=== PATIENT | female | born 1960 | race Caucasian/White ===

== ENCOUNTER → 2017-09-02 | Outpatient (CLI) | payer MEDICARE, OTHER ==
[~2017-09-02] MED LIST: ALBU0.63 NEB; ALBU18HF IH; ARFO15VI IH; AZAT100T PO; AZAT50TA PO; AZAT50TA20 PO; BUDE0.5A11 IH; BUDE10.2 IH; FLUT1DIS5 IH; HYDR-2762 PO; TIOT18CA IH
== END | disposition home or self-care (01) ==
LOC: SURG 14:12
PROVIDERS: ATTEND Anesthesiology
DX: M51.36 Other intervertebral disc degeneration, lumbar region (principal); M47.816 Spondylosis without myelopathy or radiculopathy, lumbar region; M79.1 Myalgia; J44.9 Chronic obstructive pulmonary disease, unspecified; F17.200 Nicotine dependence, unspecified, uncomplicated; Z72.89 Other problems related to lifestyle
CPT/HCPCS: 99204

== ENCOUNTER 2018-04-10 01:25 | Inpatient (IN) | payer MEDICARE, OTHER ==
[2018-04-10] VITALS (11 sets, daily range): BP systolic 91–160; BP diastolic 51–82
[~2018-04-10] VITALS: Ht 165.1 cm; Wt 81.2 kg
[2018-04-10] MEDS ORDERED: ALBU8.5H8 INH (02:46)
[2018-04-10] MEDS ORDERED: AZAT50TA20 PO (02:46)
[2018-04-10] MEDS ORDERED: HYDR-2762 PO (02:46)
[2018-04-10] MEDS ORDERED: TIOT18CA IH (02:46)
[2018-04-10] MEDS ORDERED: NAPR-514 PO (02:46)
[2018-04-10] MEDS ORDERED: IPRA3AMP NEB (02:46)
[2018-04-10] MEDS ORDERED: ROFL500T7 PO (02:46)
[2018-04-10] MEDS ORDERED: PRED2.5T PO (02:46)
[2018-04-10] MEDS ORDERED: AZIT250T PO (02:46)
[2018-04-10] MEDS ORDERED: BUDE10.2 IH (02:46)
[2018-04-10] MEDS ORDERED: IPRATRPIUM/ALBUTEROL 0.5/2.5MG 3 ML NEBU. ONE (05:12)
[2018-04-10] MEDS ORDERED: HYDROcodone/APAP 7.5/325MG 1 TAB TABLET PO PRN (06:00)
[2018-04-10] MEDS ORDERED: PIP/TAZO PER PHARMACY MC PRN (06:15)
[2018-04-10] MEDS ORDERED: PIPERACILLIN/TAZOBACTAM 3.375 GM in IV NORMAL SALINE 50ML 50 ML IV ONE (06:30)
[2018-04-10] MEDS: methylPREDNISolone SOD SUCC PF 40 MG/ML VIAL. IV SCH ×3 (06:32→20:11)
[2018-04-10 06:53] LABS: ALBUMIN 2.6 g/dL (3.4-5.0); ALBUMIN/GLOBULIN RATIO 0.6 (1.0-1.7); CALCIUM 7.8 mg/dL (8.5-10.1); CREATININE 0.9 mg/dL (0.6-1.0); GFR 64.8; POTASSIUM 4.3 mmol/L (3.5-5.1); TOTAL BILIRUBIN 0.3 mg/dL (0.2-1.0)
[2018-04-10] MEDS ORDERED: VANCOMYCIN 1 GM in IV NORMAL SALINE 250ML 250 ML IV ONE (07:30)
[2018-04-10] MEDS ORDERED: IPRATRPIUM/ALBUTEROL 0.5/2.5MG 3 ML NEBU. NEB SCH ×3 (08:00→09:00)
[2018-04-10] MEDS: IPRATRPIUM/ALBUTEROL 0.5/2.5MG 3 ML NEBU. NEB SCH ×4 (08:00→20:35)
[2018-04-10 08:26] LABS: BASO % 0 % (0-3); EOS % 0 % (0-3); HEMATOCRIT 30.9 % (36.0-47.0); HEMOGLOBIN 9.5 g/dL (12.0-15.5); LYMPH # 0.5 x10^3/uL (1.0-4.8); LYMPH % 4 % (24-48); MEAN CORPUSCULAR HEMOGLOBIN 23 pg (25-35); MEAN CORPUSCULAR HGB CONC 31 g/dL (31-37); MEAN CORPUSCULAR VOLUME 75 fL (79-100); MONO # 0.3 x10^3/uL (0.0-1.1); MONO % 2 % (0-9); NEUT # 10.9 x10^3uL (1.8-7.7); NEUT % 94 % (31-73); PLATELET COUNT 425 x10^3/uL (140-400); RED CELL DISTRIBUTION WIDTH 15.2 % (11.5-14.5); WHITE BLOOD COUNT 11.7 x10^3/uL (4.0-11.0)
--- NOTE | 2018-04-10 08:29 | RAD ---
CHEST PA LATERAL History: SHORT OF AIR, PNEUMONIA Comparison: None. Findings: 2 views of the chest are submitted. There is left suprahilar opacity. There is no significant pleural fluid or pneumothorax. Heart size is considered within normal limits. Impression: 1. There is left suprahilar opacity, could be due to infiltrate although mass not excluded at this point in time. Short-term follow-up after treatment or CT evaluation is recommended. Electronically signed by: Mannie Moore MD (04/10/2018 8:25 AM) [id number]
[2018-04-10] MEDS ORDERED: NON FORMULARY ITEM (Tiotropium Bromide (Spiriva) 1 CAP) IH SCH (09:00)
[2018-04-10] MEDS ORDERED: NON FORMULARY ITEM (Budesonide/Formoterol Fumarate (Symbicort 160-4.5 Mcg Inhaler) 2 PUFF) IH SCH (09:00)
[2018-04-10] MEDS ORDERED: ALBUTEROL SULFATE 8GM INHALER. INH SCH (09:00)
[2018-04-10] MEDS: ROFLUMILAST 500 MCG TABLET PO SCH (10:14)
[2018-04-10] MEDS: azaTHIOprine 50 MG TABLET PO SCH ×2 (10:15→20:12)
[2018-04-10] MEDS: VANCOMYCIN PER PHARMACY MC PRN (10:38)
--- NOTE | 2018-04-10 11:32 | EKG ---
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
[2018-04-10] MEDS: BUDESONIDE 0.5 MG/2 ML NEBU NEB SCH ×2 (11:33→20:35)
[2018-04-10] MEDS: VANCOMYCIN 1.25 GM in IV NORMAL SALINE 250ML 250 ML IV SCH (13:00)
[2018-04-10] MEDS: PIPERACILLIN/TAZOBACTAM 4.5 GM in IV NORMAL SALINE 50ML 50 ML IV SCH ×2 (13:00→17:40)
[2018-04-10] MEDS ORDERED: AZITHROMYCIN 250 MG TABLET. PO SCH (16:00)
[2018-04-10] MEDS: LACTOBACILLUS RHAMNOSUS GG 1 CAPSULE. PO SCH (20:11)
--- NOTE | 2018-04-10 22:53 | HP ---
ADMIT DATE: 04/10/2018 HISTORY OF PRESENT ILLNESS: The patient is a 57-year-old Afro-Uzbek female initially seen over at [place]. She had been a patient there and was discharged. She came back in through the Emergency Room with increased shortness of breath. Apparently, she had an exacerbation of COPD and has another result of that, the patient was to be admitted; however, apparently they were short of beds, and on diversion, so the patient requested to be transferred to [facility] for admission. She was diagnosed in the ER there. The patient had a probable hospital-acquired pneumonia and as a result of that was placed on vancomycin and Zosyn. The patient was increased shortness of breath, had been doing well up until the day prior to admission when she began to get increased shortness of breath there. The patient's chest x-ray there demonstrated a suprahilar opacity, possible infiltrate or mass noted. The patient was admitted also for exacerbation of COPD. PAST MEDICAL HISTORY: Sarcoid diagnosed at , lump in the left breast, bronchiectasis, asthma, COPD, emphysema, colonic polyps, influenza and pneumococcal vaccines are up-to-date. ALLERGIES: No known allergies listed. PAST SURGICAL HISTORY: She has had repeated hospitalizations for pneumonia and bronchiectasis, been followed by Pulmonology down at [place], Dr. Benavidez. FAMILY HISTORY: Both mother and father of unknown cause. SOCIAL HISTORY: The patient is a former smoker, quit about 10 years ago. Denies chewing tobacco. Occasional beer, otherwise unremarkable there. MEDICATIONS: She is on continuous oxygen 4 liters, budesonide suspension, albuterol solution for nebulizer, azathioprine 100 mg tablet b.i.d., ferrous sulfate, Spiriva, Ventolin, naproxen 500, Symbicort 160, hydrocodone 5/325 p.r.n., and Zithromax. REVIEW OF SYSTEMS: The patient ____ weakness, failure to thrive as well as increased shortness of breath overall. The patient denies chest pain, abdominal pain, nausea, vomiting, melena, hematochezia, hematemesis. PHYSICAL EXAMINATION: GENERAL: The patient otherwise on exam is a pleasant Afro-Uzbek female, moderate amount of distress. VITAL SIGNS: Blood pressure did drop down to 91/59, pulse 102, upwards of 120, afebrile, respiratory rate 26, O2 2 liters. The patient otherwise is on continuous oxygen. HEENT: The patient's head was atraumatic, normocephalic. Eyes: PERRLA without jaundice. Mouth and throat were normal. NECK: Supple. LUNGS: Diminished throughout, poor movement of air. CARDIOVASCULAR: Regular sinus rhythm, tachycardic at times. ABDOMEN: Soft, nontender. EXTREMITIES: No clubbing, 0cyanosis or edema. NEUROLOGIC: Intact. IMPRESSION: The patient was admitted for further evaluation of pneumonia, possibly hospital-acquired at another institution and acute exacerbation of chronic obstructive pulmonary disease, fkxmzekg-ig-ljgjjl protein malnutrition, history of sarcoid bronchiectasis and the like. The patient will be admitted and placed on steroids, IV antibiotic therapy, and make further evaluation on her as indicated. GABE PEARCE MD DR: ZORAN/garland JOB#: [id number] / [id number]
[2018-04-11] MEDS: PIPERACILLIN/TAZOBACTAM 4.5 GM in IV NORMAL SALINE 50ML 50 ML IV SCH ×5 (01:06→22:53)
[2018-04-11] MEDS: VANCOMYCIN 1.25 GM in IV NORMAL SALINE 250ML 250 ML IV SCH ×2 (01:08→13:01)
[2018-04-11] MEDS ORDERED: ONDANSETRON PF 4 MG/2 ML VIAL. IV PRN (03:00)
[2018-04-11 03:15] VITALS: BP 108/62
[2018-04-11] MEDS ORDERED: ONDANSETRON ODT 4 MG TAB.RAPDIS ONE (03:15)
[2018-04-11] MEDS ORDERED: ONDANSETRON ODT 4 MG TAB.RAPDIS PO PRN (03:31)
[2018-04-11] MEDS: IPRATRPIUM/ALBUTEROL 0.5/2.5MG 3 ML NEBU. NEB SCH ×4 (05:30→20:58)
[2018-04-11 05:45] LABS: BASO % 0 % (0-3); CALCIUM 8.1 mg/dL (8.5-10.1); CREATININE 0.9 mg/dL (0.6-1.0); EOS % 0 % (0-3); GFR 64.8; HEMATOCRIT 29.9 % (36.0-47.0); HEMOGLOBIN 9.1 g/dL (12.0-15.5); LYMPH # 0.5 x10^3/uL (1.0-4.8); LYMPH % 3 % (24-48); MEAN CORPUSCULAR HEMOGLOBIN 23 pg (25-35); MEAN CORPUSCULAR HGB CONC 31 g/dL (31-37); MEAN CORPUSCULAR VOLUME 77 fL (79-100); MONO # 1.3 x10^3/uL (0.0-1.1); MONO % 9 % (0-9); NEUT # 13.5 x10^3uL (1.8-7.7); NEUT % 88 % (31-73); PLATELET COUNT 472 x10^3/uL (140-400); POTASSIUM 4.1 mmol/L (3.5-5.1); RED CELL DISTRIBUTION WIDTH 15.5 % (11.5-14.5); WHITE BLOOD COUNT 15.4 x10^3/uL (4.0-11.0)
[2018-04-11] MEDS: methylPREDNISolone SOD SUCC PF 40 MG/ML VIAL. IV SCH ×3 (06:21→21:00)
[2018-04-11 07:17] LABS: % BANDS 4 % (0-9); % BASOS 0 % (0-3); % EOS 0 % (0-5); % LYMPHS 3 % (24-48); % MONOS 5 % (0-10); % SEGS 88 % (35-66); PLT ESTIMATE ADEQUATE (ADEQUATE)
[2018-04-11 07:18] LABS: ANISOCYTOSIS PRESENT; HYPOCHROMIA MOD
[2018-04-11] MEDS: azaTHIOprine 50 MG TABLET PO SCH ×2 (09:03→20:58)
[2018-04-11] MEDS: ROFLUMILAST 500 MCG TABLET PO SCH (09:03)
[2018-04-11] MEDS: LACTOBACILLUS RHAMNOSUS GG 1 CAPSULE. PO SCH ×2 (09:03→20:56)
[2018-04-11 11:11] VITALS: BP 105/55
[2018-04-11 11:53] LABS: VANC TR 14.4 mcg/mL (10.0-20.0)
[2018-04-11] MEDS: VANCOMYCIN PER PHARMACY MC PRN (13:15)
[2018-04-11 15:34] VITALS: BP 118/60
[2018-04-11] MEDS: BUDESONIDE 0.5 MG/2 ML NEBU NEB SCH ×2 (20:00→20:58)
[2018-04-11 20:29] VITALS: BP 141/58
[2018-04-11 23:00] VITALS: BP 112/63
[2018-04-12] MEDS: VANCOMYCIN 1.25 GM in IV NORMAL SALINE 250ML 250 ML IV SCH (00:03)
[2018-04-12 03:32] VITALS: BP 118/62
[2018-04-12] MEDS: IPRATRPIUM/ALBUTEROL 0.5/2.5MG 3 ML NEBU. NEB SCH ×4 (05:34→20:37)
[2018-04-12] MEDS: PIPERACILLIN/TAZOBACTAM 4.5 GM in IV NORMAL SALINE 50ML 50 ML IV SCH ×2 (06:00→11:51)
[2018-04-12] MEDS: methylPREDNISolone SOD SUCC PF 40 MG/ML VIAL. IV SCH (06:13)
[2018-04-12 07:00] VITALS: BP 118/62
[2018-04-12 07:49] LABS: BASO % 0 % (0-3); EOS % 0 % (0-3); HEMATOCRIT 29.9 % (36.0-47.0); HEMOGLOBIN 9.2 g/dL (12.0-15.5); LYMPH # 0.6 x10^3/uL (1.0-4.8); LYMPH % 4 % (24-48); MEAN CORPUSCULAR HEMOGLOBIN 24 pg (25-35); MEAN CORPUSCULAR HGB CONC 31 g/dL (31-37); MEAN CORPUSCULAR VOLUME 77 fL (79-100); MONO % 7 % (0-9); NEUT # 12.1 x10^3uL (1.8-7.7); NEUT % 88 % (31-73); PLATELET COUNT 504 x10^3/uL (140-400); RED BLOOD COUNT 3.88 x10^6/uL (3.50-5.40); RED CELL DISTRIBUTION WIDTH 15.3 % (11.5-14.5); WHITE BLOOD COUNT 13.8 x10^3/uL (4.0-11.0)
[2018-04-12 07:59] LABS: ALBUMIN 2.7 g/dL (3.4-5.0); ALBUMIN/GLOBULIN RATIO 0.7 (1.0-1.7); CALCIUM 7.9 mg/dL (8.5-10.1); CREATININE 0.8 mg/dL (0.6-1.0); GFR 74.2; POTASSIUM 3.8 mmol/L (3.5-5.1); TOTAL BILIRUBIN 0.3 mg/dL (0.2-1.0); TOTAL PROTEIN 6.8 g/dL (6.4-8.2)
[2018-04-12] MEDS: azaTHIOprine 50 MG TABLET PO SCH ×2 (09:55→20:48)
[2018-04-12] MEDS: LACTOBACILLUS RHAMNOSUS GG 1 CAPSULE. PO SCH ×2 (09:55→20:46)
[2018-04-12] MEDS: ROFLUMILAST 500 MCG TABLET PO SCH (09:56)
[2018-04-12] MEDS: BUDESONIDE 0.5 MG/2 ML NEBU NEB SCH ×2 (10:43→20:37)
[2018-04-12 12:20] VITALS: BP 123/77
[2018-04-12] MEDS ORDERED: levoFLOXacin 500 MG TABLET PO ONE (14:00)
[2018-04-12] MEDS ORDERED: predniSONE 10 MG TABLET PO ONE (14:00)
[2018-04-12] MEDS ORDERED: MAG HYDROX/AL HYDROX/SIMETH 30 ML ORAL.SUSP PO PRN (14:45)
[2018-04-12 19:37] VITALS: BP 138/78
[2018-04-12] MEDS: LINEZOLID 600 MG TABLET PO SCH (20:46)
[2018-04-12] MEDS ORDERED: FLUCONAZOLE 100 MG TABLET. PO SCH (21:00)
[2018-04-13 01:19] VITALS: BP 112/61
--- NOTE | 2018-04-13 05:04 | PN ---
DATE: 04/12/2018 SUBJECTIVE: A 57-year-old female in with pneumonia as well as exacerbation of COPD and sarcoid. She is resting fairly comfortably. They were unable to start and I restarted an IV. We had to switch over to oral medications, but to see whether or not she continues to do as well on the orals as she did on the IV. OBJECTIVE: VITAL SIGNS: Blood pressure 123/77, respiratory rate 24, pulse 87, afebrile. GENERAL: The patient is alert and oriented. LUNGS: Diminished, coarse breath sounds. CARDIOVASCULAR: Regular sinus rhythm. ABDOMEN: Soft, nontender. IMPRESSION: Pneumonia with exacerbation of chronic obstructive pulmonary disease, sarcoid, pulmonary nodules, pneumonia may be hospital-acquired from another facility, moaoaajj-pa-eslprl protein malnutrition. Continue on oral antibiotics and continue to monitor progress with this patient. GABE PEARCE MD DR: ZORAN/garland JOB#: [id number] / [id number]
[2018-04-13] MEDS: IPRATRPIUM/ALBUTEROL 0.5/2.5MG 3 ML NEBU. NEB SCH ×2 (05:19→10:39)
[2018-04-13] MEDS: LACTOBACILLUS RHAMNOSUS GG 1 CAPSULE. PO SCH (08:44)
[2018-04-13] MEDS: azaTHIOprine 50 MG TABLET PO SCH (08:45)
[2018-04-13] MEDS: ROFLUMILAST 500 MCG TABLET PO SCH (08:45)
[2018-04-13] MEDS: LINEZOLID 600 MG TABLET PO SCH (08:45)
--- NOTE | 2018-04-13 09:05 | RAD ---
Chest, 2 views, 04/13/2018: HISTORY: Pneumonia Comparison is made to a study from 04/10/2018. The heart size is normal. There are patchy bilateral suprahilar and apical opacities with superior retraction both marci. There is mild pleural thickening over the apices. The lateral view suggests rounded air-containing components compatible with cavitation or bronchiectasis. Much of this process may be due to pleural/parenchymal scarring. There is mild tenting of both hemidiaphragms. No new pulmonary abnormality is seen. There is no evidence of pleural fluid. IMPRESSION: Moderate unchanged bilateral upper lobe pleural-parenchymal opacities compatible with scarring and probable bronchiectasis, although a component of active pneumonitis is also a possibility. Comparison with older chest radiographs if available would be most helpful. Electronically signed by: Prabhjot Renee MD (04/13/2018 9:00 AM) [facility] [place]
[2018-04-13] MEDS ORDERED: MICONAZOLE NITRATE 2% TOPICAL CREAM 28GM TUBE. TP SCH ×2 (09:45→21:00)
[2018-04-13] MEDS ORDERED: MICO14CR TP (10:22)
[2018-04-13] MEDS ORDERED: LINE600T7 PO (10:22)
[2018-04-13] MEDS: BUDESONIDE 0.5 MG/2 ML NEBU NEB SCH (10:39)
== END 2018-04-13 12:25 | disposition home or self-care (01) | DRG 871 ==
LOC: ICU 02:10 → 1 SOUTH 04-12 04:12
PROVIDERS: ADMIT Family Medicine; ATTEND Family Medicine
DX: A41.9 Sepsis, unspecified organism (principal); J18.9 Pneumonia, unspecified organism; E43 Unspecified severe protein-calorie malnutrition; J44.0 Chronic obstructive pulmonary disease with (acute) lower respiratory infection; J44.1 Chronic obstructive pulmonary disease with (acute) exacerbation; D86.9 Sarcoidosis, unspecified; Z68.29 Body mass index [BMI] 29.0-29.9, adult; Z86.010 Personal history of colon polyps; Z87.891 Personal history of nicotine dependence
CPT/HCPCS: 36415; 71046; 80048; 80053; 80202; 83605; 85007; 85025; 85379; 87641; 93005; 94640; J0456; J2543; J2920; J3370; J7050; J7500; J7512; J7620; J7626; Q0162

== ENCOUNTER 2018-04-23 12:28 | Inpatient (IN) | payer MEDICARE, OTHER ==
[~2018-04-23] VITALS: Ht 162.6 cm; Wt 77.3 kg
[~2018-04-23 12:28] MED LIST changes: +ALBU8.5H8 INH; +AZIT250T PO; +IPRA3AMP NEB; +LINE600T7 PO; +MICO14CR TP; +NAPR-514 PO; +PRED2.5T PO; +ROFL500T7 PO
[2018-04-23] MEDS ORDERED: IPRATRPIUM/ALBUTEROL 0.5/2.5MG 3 ML NEBU. ONE (12:43)
[2018-04-23] MEDS ORDERED: ACETAMINOPHEN 325 MG TABLET PO ONE (13:00)
[2018-04-23] MEDS ORDERED: IPRATRPIUM/ALBUTEROL 0.5/2.5MG 3 ML NEBU. NEB ONE (13:00)
[2018-04-23] MEDS ORDERED: predniSONE 20 MG TABLET PO ONE (13:00)
[2018-04-23] MEDS ORDERED: IV NORMAL SALINE 1,000ML 1,000 ML IV SCH (13:00)
--- NOTE | 2018-04-23 13:36 | PHYS DOC ---
Past History Past Medical History: Arthritis, COPD, Pneumonia Past Surgical History: No Surgical History Alcohol Use: None Drug Use: None Adult General Chief Complaint Chief Complaint: SHORTNESS OF BREATH HPI HPI Patient is a 57-year-old female who presents in moderate respiratory distress. She was recently admitted for a pneumonia and see his exacerbation. Upon arrival she is admitted of the temperature of 100.4. He is also noted to be quite tachycardic with a heart rate of approximately 140. She feels short of breath and fatigue. She is alert and oriented 4, and answering questions appropriately. She denies hemoptysis, chest pain, diaphoresis, back pain, abdominal pain, nausea or vomiting, or syncope. Her PCP is Dr. New. Review of Systems Review of Systems Constitutional: +fever Eyes: Denies change in visual acuity, redness, or eye pain [] HENT: Denies nasal congestion or sore throat [] Respiratory: +sob and cough Cardiovascular: No additional information not addressed in HPI [] GI: Denies abdominal pain, nausea, vomiting, bloody stools or diarrhea [] : Denies dysuria or hematuria [] Musculoskeletal: Denies back pain or joint pain [] Integument: Denies rash or skin lesions [] Neurologic: Denies headache, focal weakness or sensory changes [] Endocrine: Denies polyuria or polydipsia [] All other systems were reviewed and found to be within normal limits, except as documented in this note. Current Medications Current Medications Current Medications Medications (Trade) Dose Ordered Sig/Maxwell Start Time Stop Time Status Last Admin Dose Admin Acetaminophen (Tylenol) 650 mg 1X ONCE 04/23/18 13:00 04/23/18 13:01 DC Albuterol/ Ipratropium (Duoneb) 3 ml 1X ONCE 04/23/18 13:00 04/23/18 13:01 DC 04/23/18 13:03 3 ML Levofloxacin/ Dextrose 100 ml @ 100 mls/hr 1X ONCE 04/23/18 13:00 04/23/18 13:59 Prednisone (Prednisone) 60 mg 1X ONCE 04/23/18 13:00 04/23/18 13:01 DC Sodium Chloride 1,000 ml @ 1,000 mls/hr Q1H 04/23/18 13:00 04/23/18 13:59 Allergies Allergies Allergies Coded Allergies Type Severity Reaction Last Updated Verified No Known Drug Allergies 11/01/14 No Physical Exam Physical Exam Constitutional: Well developed, well nourished, no acute distress, non-toxic appearance. [] HENT: Normocephalic, atraumatic, bilateral external ears normal, oropharynx moist, no oral exudates, nose normal. [] Eyes: PERRLA, EOMI, conjunctiva normal, no discharge. [] Neck: Normal range of motion, no tenderness, supple, no stridor. [] Cardiovascular:+tachycardia Lungs & Thorax: Diminished breath sounds bilaterally, rhonchi and slight wheezing noted, decreased air movement Abdomen: Bowel sounds normal, soft, no tenderness, no masses, no pulsatile masses. [] Skin: Warm, dry, no erythema, no rash. [] Back: No tenderness, no CVA tenderness. [] Extremities: No tenderness, no cyanosis, no clubbing, ROM intact, no edema. [] Neurologic: Alert and oriented X 3, normal motor function, normal sensory function, no focal deficits noted. [] Psychologic: Affect normal, judgement normal, mood normal. [] Current Patient Data Vital Signs Vital Signs Date Time Temp Pulse Resp B/P (MAP) Pulse Ox O2 Delivery O2 Flow Rate FiO2 04/23/18 12:50 100 Nasal Cannula 2.0 04/23/18 12:48 100.4 137 24 EKG EKG Sinus tachycardia, heart rate of 140, normal axis, no acute ischemic findings, no STEMI Radiology/Procedures Radiology/Procedures [] Course & Med Decision Making Course & Med Decision Making Pertinent Labs and Imaging studies reviewed. (See chart for details) @1510 - Patient updated on lab and imaging results. Her chest x-ray suggests diffuse infiltrates. Antibiotics ordered. Patient is doing better after some IV fluids and breathing treatments however is still tachycardic to 125. She is agreeable to admission and does not feel safe going home. Dr. New accepts the telemetry admission. Dragon Disclaimer Dragon Disclaimer This electronic medical record was generated, in whole or in part, using a voice recognition dictation system. Departure Departure: Impression: Primary Impression: Hospital-acquired pneumonia Additional Impressions: COPD exacerbation Respiratory distress Tachycardia Disposition: ADMITTED INPATIENT Admitting Physician: Boris Bartholomew Condition: STABLE Referrals: BORIS BARTHOLOMEW MD (PCP) Problem Qualifiers LISA BLANK DO Apr 23, 2018 13:36
[2018-04-23 13:47] LABS: BASO # 0.1 x10^3/uL (0.0-0.2); BASO % 1 % (0-3); EOS # 0.1 x10^3/uL (0.0-0.7); EOS % 2 % (0-3); HEMOGLOBIN 10.3 g/dL (12.0-15.5); LYMPH # 0.9 x10^3/uL (1.0-4.8); LYMPH % 11 % (24-48); MEAN CORPUSCULAR HEMOGLOBIN 24 pg (25-35); MEAN CORPUSCULAR HGB CONC 32 g/dL (31-37); MEAN CORPUSCULAR VOLUME 76 fL (79-100); MONO # 1.4 x10^3/uL (0.0-1.1); MONO % 17 % (0-9); NEUT # 5.9 x10^3uL (1.8-7.7); NEUT % 70 % (31-73); PLATELET COUNT 423 x10^3/uL (140-400); RED BLOOD COUNT 4.23 x10^6/uL (3.50-5.40); RED CELL DISTRIBUTION WIDTH 15.8 % (11.5-14.5); WHITE BLOOD COUNT 8.4 x10^3/uL (4.0-11.0)
--- NOTE | 2018-04-23 14:05 | EKG ---
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
[2018-04-23] MEDS ORDERED: PIPERACILLIN/TAZOBACTAM 3.375 GM in IV NORMAL SALINE 50ML 50 ML IV ONE (15:30)
[2018-04-23 15:34] LABS: BACTERIA,URINE 0 /HPF (0-FEW); BILIRUBIN,URINE NEG (NEG); CLARITY,URINE CLOUDY; COLOR,URINE YELLOW; GLUCOSE,URINE NEG (NEG); NITRITE,URINE NEG (NEG); SQUAMOUS EPITHELIAL CELL,UR MOD /LPF; UROBILINOGEN,URINE 0.2 mg/dL (0.2 mg/dL)
[2018-04-23] MEDS ORDERED: IV NORMAL SALINE 50ML 50 ML ONE (16:07)
[2018-04-23] MEDS ORDERED: PIPERACILLIN/TAZOBACTAM 3.375 GM VIAL IV ONE (16:07)
[2018-04-23 17:52] VITALS: BP 105/71
[2018-04-23 19:48] VITALS: BP 132/74
[2018-04-23] MEDS ORDERED: ALBUTEROL SULFATE 2.5 MG/3 ML NEBU. NEB PRN (20:00)
[2018-04-23] MEDS: BUDESONIDE 0.5 MG/2 ML NEBU NEB SCH (20:17)
[2018-04-23] MEDS: IPRATRPIUM/ALBUTEROL 0.5/2.5MG 3 ML NEBU. NEB SCH (20:17)
[2018-04-23] MEDS: LINEZOLID 600 MG TABLET PO SCH (20:59)
[2018-04-23] MEDS: azaTHIOprine 50 MG TABLET PO SCH (20:59)
[2018-04-23] MEDS: MICONAZOLE NITRATE 2% TOPICAL CREAM 28GM TUBE. TP SCH (20:59)
[2018-04-23] MEDS ORDERED: ALBUTEROL SULFATE 8GM INHALER. INH SCH (21:00)
[2018-04-23] MEDS ORDERED: NON FORMULARY ITEM (Budesonide/Formoterol Fumarate (Symbicort 160-4.5 Mcg Inhaler) 2 PUFF) IH SCH (21:00)
[2018-04-23] MEDS ORDERED: NAPROXEN 500 MG PO SCH (21:00)
[2018-04-23] MEDS: LACTOBACILLUS RHAMNOSUS GG 1 CAPSULE. PO SCH (21:03)
--- NOTE | 2018-04-23 21:58 | EKG ---
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
[2018-04-23] MEDS: PIPERACILLIN/TAZOBACTAM 3.375 GM in IV NORMAL SALINE 50ML 50 ML IV SCH (22:08)
[2018-04-23] MEDS: HEPARIN PF for SUB-Q USE 5,000 UNIT/0.5 ML VIAL. SQ SCH (22:09)
[2018-04-23 22:28] VITALS: BP 114/77
[2018-04-24 03:00] VITALS: BP 113/75
[2018-04-24] MEDS: PIPERACILLIN/TAZOBACTAM 3.375 GM in IV NORMAL SALINE 50ML 50 ML IV SCH ×4 (03:57→21:32)
[2018-04-24] MEDS: BUDESONIDE 0.5 MG/2 ML NEBU NEB SCH ×2 (05:26→20:32)
[2018-04-24] MEDS: IPRATRPIUM/ALBUTEROL 0.5/2.5MG 3 ML NEBU. NEB SCH ×4 (05:26→20:32)
[2018-04-24] MEDS: HEPARIN PF for SUB-Q USE 5,000 UNIT/0.5 ML VIAL. SQ SCH ×3 (05:30→21:33)
[2018-04-24 08:09] VITALS: BP 106/67
[2018-04-24] MEDS ORDERED: NON FORMULARY ITEM (Tiotropium Bromide (Spiriva) 1 CAP) IH SCH (09:00)
[2018-04-24] MEDS: MICONAZOLE NITRATE 2% TOPICAL CREAM 28GM TUBE. TP SCH (09:00)
[2018-04-24] MEDS ORDERED: PREDNISONE 5 MG PO SCH (09:00)
[2018-04-24] MEDS: LACTOBACILLUS RHAMNOSUS GG 1 CAPSULE. PO SCH ×2 (09:17→20:25)
[2018-04-24] MEDS: ROFLUMILAST 500 MCG TABLET PO SCH (09:17)
[2018-04-24] MEDS: azaTHIOprine 50 MG TABLET PO SCH ×2 (09:17→20:25)
[2018-04-24] MEDS: LINEZOLID 600 MG TABLET PO SCH ×2 (09:17→20:25)
[2018-04-24] MEDS ORDERED: MICONAZOLE NITRATE 2% TOPICAL CREAM 28GM TUBE. TP PRN (09:30)
--- NOTE | 2018-04-24 10:39 | RAD ---
CHEST PA LATERAL History: fever, cough, sob Comparison: Two-view chest April 13, 2018. Findings: The cardiomediastinal silhouette is normal. Bilateral suprahilar and infrahilar parenchymal opacities are unchanged. Superior retraction of the marci is redemonstrated. Stable mild tenting of the hemidiaphragms. No pleural effusion or pneumothorax is seen. There is no acute bone abnormality. IMPRESSION: Bilateral suprahilar and infrahilar parenchymal opacities are unchanged. Some of the opacities are probably chronic, cannot exclude superimposed acute pneumonia. Electronically signed by: Huy Hidalgo MD (04/24/2018 10:35 AM) [id number]
[2018-04-24 10:48] VITALS: BP 118/72
[2018-04-24 14:31] VITALS: BP 114/65
[2018-04-24 19:00] VITALS: BP 127/79
[2018-04-24 23:00] VITALS: BP 87/52
[2018-04-25] MEDS: PIPERACILLIN/TAZOBACTAM 3.375 GM in IV NORMAL SALINE 50ML 50 ML IV SCH ×4 (04:24→21:33)
[2018-04-25] MEDS: HEPARIN PF for SUB-Q USE 5,000 UNIT/0.5 ML VIAL. SQ SCH ×3 (04:25→21:40)
[2018-04-25 05:00] VITALS: BP 102/65
[2018-04-25] MEDS: IPRATRPIUM/ALBUTEROL 0.5/2.5MG 3 ML NEBU. NEB SCH ×4 (05:06→20:29)
[2018-04-25] MEDS: LACTOBACILLUS RHAMNOSUS GG 1 CAPSULE. PO SCH ×2 (08:49→21:33)
[2018-04-25] MEDS: LINEZOLID 600 MG TABLET PO SCH ×2 (08:49→21:33)
[2018-04-25] MEDS: ROFLUMILAST 500 MCG TABLET PO SCH (08:49)
[2018-04-25] MEDS: azaTHIOprine 50 MG TABLET PO SCH ×2 (09:00→21:00)
[2018-04-25] MEDS: BUDESONIDE 0.5 MG/2 ML NEBU NEB SCH ×2 (09:38→20:29)
--- NOTE | 2018-04-25 10:45 | PN ---
DATE: 04/24/2018 SUBJECTIVE: A 57-year-old female in with acute exacerbation of COPD, possible acute pneumonia. The patient otherwise resting fairly comfortably, breathing much better than she was yesterday. OBJECTIVE: VITAL SIGNS: Blood pressure 110/60, respiratory rate 20, pulse 95, afebrile, oxygen saturation on 2 liters at 97% was down to 90%, was running a temperature of 100.4 with a pulse of 137 when she first came in. She is making fairly good progress. GENERAL: The patient is alert and oriented. LUNGS: Diminished throughout, poor movement of air. CARDIOVASCULAR: Regular sinus rhythm. S1, S2, without murmur, rub, thrill, or extra heart sounds. ABDOMEN: Soft, nontender. EXTREMITIES: No clubbing, cyanosis, nor edema. IMPRESSION: Acute respiratory failure, sepsis, pneumonia of unspecified etiology, possibly institutional, history of sarcoid. PLAN: Continue with IV antibiotic therapy. Make further evaluation on her as indicated. Continue with IV antibiotic therapy and steroids. GABE PEARCE MD DR: ZORAN/garland JOB#: [id number] / [id number]
[2018-04-25 11:00] VITALS: BP 97/58
[2018-04-25 16:00] VITALS: BP 99/58
[2018-04-25 19:00] VITALS: BP 96/64
[2018-04-25 23:00] VITALS: BP 96/64
--- NOTE | 2018-04-26 01:56 | PN ---
DATE: SUBJECTIVE: A 57-year-old female in with exacerbation of COPD, possible pneumonia, and sarcoidosis. The patient apparently had a rough night last night. Pulse went up, blood pressure went down. She is resting a little bit more comfortably now. OBJECTIVE: VITAL SIGNS: Blood pressure 97/58, had gone down 87/52, pulse over 100, respiratory rate 22 down and afebrile. GENERAL: The patient is alert and oriented. LUNGS: Diminished throughout, poor movement of air. CARDIOVASCULAR: Regular sinus rhythm. ABDOMEN: Soft, nontender. ____ acute exacerbation of chronic obstructive pulmonary disease. PLAN: As above. Continue to monitor the patient accordingly, make further evaluation with aggressive pulmonary toilet and the like. Acute exacerbation of COPD. GABE PEARCE MD DR: ZORAN/garland JOB#: [id number] / [id number]
[2018-04-26 03:00] VITALS: BP 96/64
[2018-04-26] MEDS: HYDROcodone/APAP 7.5/325MG 1 TAB TABLET PO PRN ×3 (03:16→21:27)
[2018-04-26] MEDS: PIPERACILLIN/TAZOBACTAM 3.375 GM in IV NORMAL SALINE 50ML 50 ML IV SCH ×4 (05:20→21:28)
[2018-04-26] MEDS: HEPARIN PF for SUB-Q USE 5,000 UNIT/0.5 ML VIAL. SQ SCH ×3 (05:25→21:34)
[2018-04-26] MEDS: IPRATRPIUM/ALBUTEROL 0.5/2.5MG 3 ML NEBU. NEB SCH ×4 (05:54→20:33)
[2018-04-26 07:00] VITALS: BP 137/75
[2018-04-26] MEDS: LACTOBACILLUS RHAMNOSUS GG 1 CAPSULE. PO SCH ×2 (09:04→20:47)
[2018-04-26] MEDS: azaTHIOprine 50 MG TABLET PO SCH ×2 (09:04→20:48)
[2018-04-26] MEDS: LINEZOLID 600 MG TABLET PO SCH ×2 (09:04→20:48)
[2018-04-26] MEDS: ROFLUMILAST 500 MCG TABLET PO SCH (09:05)
[2018-04-26] MEDS: BUDESONIDE 0.5 MG/2 ML NEBU NEB SCH ×2 (09:23→20:33)
[2018-04-26 10:34] VITALS: BP 126/77
[2018-04-26 15:07] VITALS: BP 110/71
[2018-04-26 19:00] VITALS: BP 121/68
[2018-04-26 22:20] VITALS: BP 137/85
[2018-04-27] VITALS (10 sets, daily range): BP systolic 100–120; BP diastolic 65–78
[2018-04-27] MEDS: PIPERACILLIN/TAZOBACTAM 3.375 GM in IV NORMAL SALINE 50ML 50 ML IV SCH ×4 (03:44→21:18)
[2018-04-27] MEDS: IPRATRPIUM/ALBUTEROL 0.5/2.5MG 3 ML NEBU. NEB SCH ×4 (05:14→20:31)
[2018-04-27] MEDS: HEPARIN PF for SUB-Q USE 5,000 UNIT/0.5 ML VIAL. SQ SCH ×3 (06:09→21:20)
[2018-04-27] MEDS: ROFLUMILAST 500 MCG TABLET PO SCH (08:33)
[2018-04-27] MEDS: azaTHIOprine 50 MG TABLET PO SCH ×2 (08:33→21:18)
[2018-04-27] MEDS: LINEZOLID 600 MG TABLET PO SCH ×2 (08:33→21:18)
[2018-04-27] MEDS: LACTOBACILLUS RHAMNOSUS GG 1 CAPSULE. PO SCH ×2 (08:33→21:18)
[2018-04-27] MEDS: predniSONE 20 MG TABLET PO SCH (09:14)
[2018-04-27] MEDS: BUDESONIDE 0.5 MG/2 ML NEBU NEB SCH ×2 (09:14→20:31)
[2018-04-27 09:39] LABS: BASO # 0.1 x10^3/uL (0.0-0.2); BASO % 1 % (0-3); EOS # 0.1 x10^3/uL (0.0-0.7); EOS % 2 % (0-3); HEMATOCRIT 30.8 % (36.0-47.0); HEMOGLOBIN 9.5 g/dL (12.0-15.5); LYMPH # 0.7 x10^3/uL (1.0-4.8); LYMPH % 8 % (24-48); MEAN CORPUSCULAR HEMOGLOBIN 24 pg (25-35); MEAN CORPUSCULAR HGB CONC 31 g/dL (31-37); MEAN CORPUSCULAR VOLUME 76 fL (79-100); MONO # 0.7 x10^3/uL (0.0-1.1); MONO % 9 % (0-9); NEUT # 6.7 x10^3uL (1.8-7.7); NEUT % 81 % (31-73); PLATELET COUNT 500 x10^3/uL (140-400); RED BLOOD COUNT 4.03 x10^6/uL (3.50-5.40); RED CELL DISTRIBUTION WIDTH 16.1 % (11.5-14.5); WHITE BLOOD COUNT 8.3 x10^3/uL (4.0-11.0)
[2018-04-27 10:06] LABS: CALCIUM 8.9 mg/dL (8.5-10.1); CREATININE 0.9 mg/dL (0.6-1.0); GFR 64.8; POTASSIUM 3.5 mmol/L (3.5-5.1)
--- NOTE | 2018-04-27 13:46 | PN ---
DATE: 04/27/2018 SUBJECTIVE: The patient resting fairly comfortably. Still having trouble breathing. We will continue with aggressive pulmonary toilet and make further evaluation on her as indicated. OBJECTIVE: VITAL SIGNS: Blood pressure 120/70, respiratory rate 20, pulse 113. GENERAL: The patient is alert and oriented. LUNGS: Diminished throughout, but clear. CARDIOVASCULAR: Regular sinus rhythm. ABDOMEN: Soft, nontender. Continue aggressive pulmonary toilet. IMPRESSION: Pneumonia of unspecified etiology, acute exacerbation of chronic obstructive pulmonary disease, history of sarcoid. GABE PEARCE MD DR: ZORAN/garland JOB#: [id number] / [id number]
--- NOTE | 2018-04-27 14:27 | CARD ---
MR#: [id number] Date of Study: 04/27/2018 Ordering Physician: JANET HODGSON, Referring Physician: GABE PEARCE, Tech: JOY Choi APPROVED REPORT EXAM: Two-dimensional and M-mode echocardiogram with Doppler and color Doppler. Other Information Quality : FairHR: 100bpm Technically limited study due to COPD and tachycardia. INDICATION COPD Dyspnea Pneumonia 2D DIMENSIONS Left Atrium(2D)2.3 (1.6-4.0cm)IVSd1.0 (0.7-1.1cm) Aortic Root(2D)2.8 (2.0-3.7cm)LVDd4.4 (3.9-5.9cm) LVOT Diameter2.2 (1.8-2.4cm)PWd1.1 (0.7-1.1cm) LVDs2.2 (2.5-4.0cm)FS (%) 65.0 % SV72.1 ml Aortic Valve AoV Peak Smith.143.0cm/Pam Peak GR.8.2mmHg LVOT Peak Smith.91.8cm/sAVA (VMAX)2.40cm2 Mitral Valve MV E Sglrtlwo59.9cm/sMV DECEL [id number] MV A Ifltjruc27.3cm/sE/A Ratio0.7 LEFT VENTRICLE The left ventricle is normal size. There is borderline concentric left ventricular hypertrophy. The l eft ventricle is hyperdynamic. The Ejection Fraction is 65-70%. There is normal LV segmental wall mot ion. RIGHT VENTRICLE The right ventricle is normal size. There is normal right ventricular wall thickness. The right ventr icular systolic function is normal. ATRIA The left atrium size is normal. The right atrium size is normal. The interatrial septum is intact wit h no evidence for an atrial septal defect or patent foramen ovale as noted on 2-D or Doppler imaging. AORTIC VALVE The aortic valve is not well visualized. Doppler and Color Flow revealed no significant aortic regurg itation. There is no significant aortic valvular stenosis. MITRAL VALVE The mitral valve is normal in structure and function. There is no mitral valve stenosis. Doppler and Color Flow revealed no mitral valve regurgitation noted. TRICUSPID VALVE Doppler and Color Flow revealed trace tricuspid regurgitation. There is no tricuspid valve stenosis. PULMONIC VALVE The pulmonic valve is not well visualized. Doppler and Color Flow revealed no pulmonic valvular regur gitation. There is no pulmonic valvular stenosis. GREAT VESSELS The aortic root is normal in size. The IVC is normal in size and collapses >50% with inspiration. PERICARDIAL EFFUSION There is no pleural effusion. There is no evidence of significant pericardial effusion. Critical Notification Critical Value: No <Conclusion> The left ventricle is normal size. The left ventricle is hyperdynamic. The Ejection Fraction is 65-70%. There is borderline concentric left ventricular hypertrophy. There is no significant aortic valvular stenosis. Doppler and Color Flow revealed no significant aortic regurgitation. Doppler and Color Flow revealed no mitral valve regurgitation noted. Doppler and Color Flow revealed trace tricuspid regurgitation. Signed by : Shane Starks MD Electronically Approved : 04/27/2018 14:26:23
[2018-04-27] MEDS ORDERED: IOHEXOL 300 MG/ML 75 ML VIAL. IV ONE (15:15)
[2018-04-27] MEDS ORDERED: CONTRAST GIVEN MC PRN (15:15)
--- NOTE | 2018-04-27 15:39 | PDOC2 ---
CONSULT Date of Admission DATE: 04/27/18 TIME: 15:30 Reason for Consult: tachycardia Problem List Problems Medical Problems: (1) COPD exacerbation Status: Acute (2) Respiratory distress Status: Acute (3) Tachycardia Status: Acute History of Present Illness The patient is a 57-year-old -[place] female who was initially seen over at [facility] where she had apparently been admitted. She presented back to the ED with increased shortness of breath and ultimately was transferred to [facility] as an inpatient where she was treated for pneumonia and COPD exacerbation. She was treated for a probable hospital-acquired pneumonia with vancomycin and Zosyn. She was apparently discharged on 04/22. She came back to the ED on 04/23 with again increased shortness of breath and was readmitted for IV abx. She has been been here since 04/23 and apparently last pm began to again become short of breath. She was also noted to be tachycardic with heart rates in the 150s with minimal activity, so consult was called. Today she remains mildly dyspneic even at rest. She does think her dyspnea is improving overall. She denies congestive symptoms, chest discomfort or palpitations. She denies lightheadedness, presyncope or syncope. She remains mildly tachycardic even at rest. Past Medical History Sarcoid diagnosed at , lump in the left breast, bronchiectasis, asthma, COPD, emphysema, colonic polyps Past Surgical History Family History unknown Social History The patient is a former smoker, quit about 10 years ago. No significant ETOH, no illicit drugs Current Medications Current Medications Albuterol/ Ipratropium (Duoneb) 3 ml STK-MED ONCE .ROUTE ; Start 04/23/18 at 12: 43; Stop 04/23/18 at 12:45; Status DC Acetaminophen (Tylenol) 650 mg 1X ONCE PO Last administered on 04/23/18at 13:38 ; Start 04/23/18 at 13:00; Stop 04/23/18 at 13:01; Status DC Levofloxacin/ Dextrose 100 ml @ 100 mls/hr 1X ONCE IV Last administered on at 13:39; Start 04/23/18 at 13:00; Stop 04/23/18 at 13:59; Status DC Sodium Chloride 1,000 ml @ 1,000 mls/hr Q1H IV Last administered on 04/23/18at 13:39; Start 04/23/18 at 13:00; Stop 04/23/18 at 13:59; Status DC Albuterol/ Ipratropium (Duoneb) 3 ml 1X ONCE NEB Last administered on at 13:03; Start 04/23/18 at 13:00; Stop 04/23/18 at 13:01; Status DC Prednisone (Prednisone) 60 mg 1X ONCE PO Last administered on 04/23/18at 13:38 ; Start 04/23/18 at 13:00; Stop 04/23/18 at 13:01; Status DC Piperacillin Sod/ Tazobactam Sod 3.375 gm/Sodium Chloride 50 ml @ 100 mls/hr 1X ONCE IV Last administered on 04/23/18at 16:17; Start 04/23/18 at 15:30; Stop 04/23/18 at 15:59; Status DC Sodium Chloride 50 ml @ As Directed STK-MED ONCE .ROUTE ; Start 04/23/18 at 16: 07; Stop 04/23/18 at 16:08; Status DC Piperacillin Sod/ Tazobactam Sod (Zosyn) 3.375 gm STK-MED ONCE IV ; Start at 16:07; Stop 04/23/18 at 16:08; Status DC Albuterol Sulfate (Ventolin Hfa) 2 puff BID INH ; Start 04/23/18 at 21:00; Status UNV Acetaminophen/ Hydrocodone Bitart (Lortab 7.5/325) 1 tab PRN Q4HRS PRN PO PAIN Last administered on 04/26/18at 21:27; Start 04/23/18 at 19:30 Albuterol/ Ipratropium (Duoneb) 3 ml RTQID NEB Last administered on 04/27/18at 11:16; Start 04/23/18 at 20:00 Miconazole Nitrate (Monistat-Derm) 1 sean BID TP Last administered on 04/23/18at 20:59; Start 04/23/18 at 21:00; Stop 04/24/18 at 09:21; Status DC Azathioprine (Imuran) 50 mg Q12HR PO Last administered on 04/27/18at 08:33; Start 04/23/18 at 21:00 Non-Formulary Medication (Budesonide/ Formoterol Fumarate (Symbicort 160-4.5 Mcg Inhaler)) 2 puff BID IH ; Start 04/23/18 at 21:00; Status UNV Linezolid (Zyvox) 600 mg BID PO Last administered on 04/27/18at 08:33; Start at 21:00 Non-Formulary Medication (Naproxen ) 500 mg BID PO ; Start 04/23/18 at 21:00; Stop 04/23/18 at 21:00; Status DC Non-Formulary Medication (Prednisone ) 5 mg DAILY PO ; Start 04/24/18 at 09:00; Stop 04/24/18 at 09:00; Status DC Non-Formulary Medication (Roflumilast (Daliresp)) 500 mcg DAILY PO ; Start 04/24 at 09:00; Status UNV Non-Formulary Medication (Tiotropium [place] (Spiriva)) 1 cap DAILY IH ; Start 04/24/18 at 09:00; Status UNV Piperacillin Sod/ Tazobactam Sod 3.375 gm/Sodium Chloride 50 ml @ 100 mls/hr Q6H IV Last administered on 04/27/18at 10:21; Start 04/23/18 at 22:00 Heparin Sodium (Porcine) (Heparin Sq) 5,000 unit Q8HRS SQ Last administered on 04/27/18at 14:13; Start 04/23/18 at 22:00 Albuterol Sulfate (Ventolin) 2.5 mg PRN Q6HRS PRN NEB SHORTNESS OF BREATH; Start 04/23/18 at 20:00 Budesonide (Pulmicort) 0.5 mg RTBID NEB Last administered on 04/27/18at 09:14; Start 04/23/18 at 20:00 Lactobacillus Rhamnosus (Culturelle) 1 cap BID PO Last administered on at 08:33; Start 04/23/18 at 21:00 Miconazole Nitrate (Monistat-Derm) 1 sean PRN BID PRN TP SEE COMMENTS; Start at 09:30 Prednisone (Prednisone) 20 mg DAILY PO Last administered on 04/27/18at 09:14; Start 04/27/18 at 09:00 Iohexol (Omnipaque 300 Mg/ml) 75 ml 1X ONCE IV Last administered on 04/27/18at 15:24; Start 04/27/18 at 15:15; Stop 04/27/18 at 15:16; Status DC Info (Do NOT chart on this entry -- for MONITORING) 1 each PRN DAILY PRN MC SEE COMMENTS; Start 04/27/18 at 15:15; Stop 04/29/18 at 15:14 Active Scripts Active Antifungal Cream (Miconazole Nitrate) 14 Gm Cream..g. 1 Sean TP BID Linezolid 600 Mg Tablet 600 Mg PO BID Reported Daliresp (Roflumilast) 500 Mcg Tablet 500 Mcg PO DAILY LAST DOSE GIVEN: DATE: TODAY TIME: AM NEXT DOSE DUE: DATE: TOMORROW TIME: AM Duoneb 0.5-3(2.5) Mg/3 Ml (Albuterol/Ipratropium) 3 Ml Ampul.neb 3 Ml NEB QID LAST DOSE GIVEN: DATE: TODAY TIME: AM NEXT DOSE DUE: DATE: TODAY TIME: 1 PM Prednisone 2.5 Mg Tablet 5 Mg PO DAILY NEXT DOSE DUE: DATE: TOMORROW TIME: AM NEXT DOSE DUE: DATE: TIME: Imuran (Azathioprine) 50 Mg Tablet 50 Mg PO Q12HR LAST DOSE GIVEN: DATE: TODAY TIME: AM NEXT DOSE DUE: DATE: TODAY TIME: PM Hydrocodone-Apap 7.5-325 (Hydrocodone Bit/Acetaminophen) 1 Each Tablet 1 Tab PO PRN Q4HRS PRN NOT GIVEN TODAY NEXT DOSE DUE: DATE: TODAY TIME: IF AND WHEN NEEDED DATE: TIME: Naproxen 500 Mg Tablet 500 Mg PO BID NEXT DOSE DUE: DATE: TODAY TIME: PM IF NEEDED NEXT DOSE DUE: DATE: TIME: Symbicort 160-4.5 Mcg Inhaler (Budesonide/Formoterol Fumarate) 10.2 Gm Hfa.aer.ad 2 Puff IH BID NOT GIVEN TODAY NEXT DOSE DUE: DATE: TODAY TIME: PM DATE: TIME: Proair Hfa Inhaler (Albuterol Sulfate) 8.5 Gm Hfa.aer.ad 2 Puff INH BID NEXT DOSE DUE: DATE: TODAY TIME: PM NEXT DOSE DUE: DATE: TIME: Spiriva (Tiotropium Marshall) 18 Mcg Cap.w.dev 1 Cap IH DAILY NEXT DOSE DUE: DATE: TODAY TIME: WHEN YOU GET HOME NEXT DOSE DUE: DATE: TIME: Allergies: Coded Allergies: No Known Drug Allergies (Unverified , 11/01/14) Review of System as per HPI or negative General: Alert, Oriented X3, Cooperative, mild distress HEENT: Atraumatic, EOMI Lungs: Other (decreased with expiratory wheezing) Heart: Normal S1, Normal S2, Other (tachycardic, no significant murmurs, no gallops, clicks or rubs) Abdomen: Normal bowel sounds, Soft, No tenderness Extremities: No cyanosis, No edema, Normal pulses Neuro: Normal speech, Strength at 5/5 X4 ext Psych/Mental Status: Mental status NL, Mood NL VITALS Vital Signs Date Time Temp Pulse Resp B/P (MAP) Pulse Ox O2 Delivery O2 Flow Rate FiO2 04/27/18 11:30 98.2 101 20 112/71 (85) 99 Room Air 04/27/18 11:16 2.0 Labs Laboratory Tests Test 04/27/18 09:29 White Blood Count 8.3 x10^3/uL (4.0-11.0) Red Blood Count 4.03 x10^6/uL (3.50-5.40) Hemoglobin 9.5 g/dL (12.0-15.5) Hematocrit 30.8 % (36.0-47.0) Mean Corpuscular Volume 76 fL (79-100) Mean Corpuscular Hemoglobin 24 pg (25-35) Mean Corpuscular Hemoglobin Concent 31 g/dL (31-37) Red Cell Distribution Width 16.1 % (11.5-14.5) Platelet Count 500 x10^3/uL (140-400) Neutrophils (%) (Auto) 81 % (31-73) Lymphocytes (%) (Auto) 8 % (24-48) Monocytes (%) (Auto) 9 % (0-9) Eosinophils (%) (Auto) 2 % (0-3) Basophils (%) (Auto) 1 % (0-3) Neutrophils # (Auto) 6.7 x10^3uL (1.8-7.7) Lymphocytes # (Auto) 0.7 x10^3/uL (1.0-4.8) Monocytes # (Auto) 0.7 x10^3/uL (0.0-1.1) Eosinophils # (Auto) 0.1 x10^3/uL (0.0-0.7) Basophils # (Auto) 0.1 x10^3/uL (0.0-0.2) Sodium Level 141 mmol/L (136-145) Potassium Level 3.5 mmol/L (3.5-5.1) Chloride Level 99 mmol/L (98-107) Carbon Dioxide Level 36 mmol/L (21-32) Anion Gap 6 (6-14) Blood Urea Nitrogen 6 mg/dL (7-20) Creatinine 0.9 mg/dL (0.6-1.0) Estimated GFR (Cockcroft-Gault) 64.8 Glucose Level 161 mg/dL (70-99) Calcium Level 8.9 mg/dL (8.5-10.1) Images CXR 04/23/18 IMPRESSION: Bilateral suprahilar and infrahilar parenchymal opacities are unchanged. Some of the opacities are probably chronic, cannot exclude superimposed acute pneumonia. Assessment/Plan 1. Sinus tachycardia - likely reactive. Await CT results. check TSH. LVEF mildly hyperdynamic but no other significant abnormalities. Recommend supportive care. 2. PNA / COPD - mgmt per JANET CROUCH [employer] Apr 27, 2018 15:39
--- NOTE | 2018-04-27 16:44 | RAD ---
CTA of the chest with contrast, 04/27/2018: HISTORY: Extreme shortness of breath, pneumonia Multidetector CT imaging was performed following an IV bolus injection of iodinated contrast material. Multiplanar reconstructions were produced including coronal and sagittal MIP images. Some of these images are compromised by patient motion artifact. The central pulmonary arteries are fairly well opacified and no filling defects are seen to suggest pulmonary emboli. The thoracic aorta is unremarkable. There are borderline enlarged precarinal lymph nodes. No hilar adenopathy is seen. There are moderate scattered lucencies in the lungs compatible with emphysema. There is bronchial wall thickening and mild bronchiectasis primarily in the upper lobes. There are peripheral pleural-parenchymal opacities in the upper lobes suggesting scarring with a component of underlying traction bronchiectasis. There are additional scattered tree-in-bud type opacities in both lungs which may be due to acute or chronic pneumonitis. No pleural fluid is evident. IMPRESSION: 1. No CT evidence of central pulmonary emboli. 2. Predominantly chronic appearing bilateral lung disease with emphysema, bronchitis, bronchiectasis, and moderate pleural-parenchymal scarring. A component of active pneumonia may also be present. 3. Precarinal lymph nodes of borderline size. PQRS Compliance Statement: One or more of the following individualized dose reduction techniques were utilized for this examination: 1. Automated exposure control 2. Adjustment of the mA and/or kV according to patient size 3. Use of iterative reconstruction technique Electronically signed by: Prabhjot Renee MD (04/27/2018 4:41 PM) [facility]
--- NOTE | 2018-04-27 16:50 | EKG ---
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
--- NOTE | 2018-04-27 18:02 | PN ---
DATE: SUBJECTIVE: A 57-year-old female in with pneumonia and acute exacerbation of COPD, doing somewhat better, still fairly weak. OBJECTIVE: VITAL SIGNS: Blood pressure 110/70, respiratory 20, pulse 90, afebrile. GENERAL: Alert and oriented. LUNGS: Diminished, but clear than they have been. CARDIOVASCULAR: Regular sinus rhythm. ABDOMEN: Soft, nontender. IMPRESSION: Pneumonia of unspecified etiology and exacerbation of chronic obstructive pulmonary disease sarcoid. GABE PEARCE MD DR: ZORAN/garland JOB#: [id number] / [id number]
[2018-04-28] MEDS: PIPERACILLIN/TAZOBACTAM 3.375 GM in IV NORMAL SALINE 50ML 50 ML IV SCH ×2 (04:02→08:48)
[2018-04-28] MEDS: IPRATRPIUM/ALBUTEROL 0.5/2.5MG 3 ML NEBU. NEB SCH ×2 (04:17→09:35)
[2018-04-28 05:40] VITALS: BP 113/74
[2018-04-28] MEDS: HEPARIN PF for SUB-Q USE 5,000 UNIT/0.5 ML VIAL. SQ SCH (05:47)
[2018-04-28] MEDS: predniSONE 20 MG TABLET PO SCH (08:47)
[2018-04-28] MEDS: ROFLUMILAST 500 MCG TABLET PO SCH (08:48)
[2018-04-28] MEDS: azaTHIOprine 50 MG TABLET PO SCH (08:48)
[2018-04-28] MEDS: LINEZOLID 600 MG TABLET PO SCH (08:48)
[2018-04-28] MEDS: LACTOBACILLUS RHAMNOSUS GG 1 CAPSULE. PO SCH (08:48)
[2018-04-28] MEDS ORDERED: VANCOMYCIN PER PHARMACY MC PRN (09:30)
--- NOTE | 2018-04-28 09:30 | PDOC ---
PROGRESS NOTES Diagnosis Problem Problems Medical Problems: (1) COPD exacerbation Status: Acute (2) Respiratory distress Status: Acute (3) Tachycardia Status: Acute Assessment Problems Medical Problems: (1) COPD exacerbation Status: Acute (2) Respiratory distress Status: Acute (3) Tachycardia Status: Acute 1. Sinus tachycardia - likely reactive. no PE. Tachycardia improved this am. LVEF mildly hyperdynamic but no other significant abnormalities. TSH pending. Recommend supportive care. 2. PNA / COPD/sarcoid - mgmt per PCP Objective CT - IMPRESSION: 1. No CT evidence of central pulmonary emboli. 2. Predominantly chronic appearing bilateral lung disease with emphysema, bronchitis, bronchiectasis, and moderate pleural-parenchymal scarring. A component of active pneumonia may also be present. 3. Precarinal lymph nodes of borderline size. Echo - The left ventricle is normal size. The left ventricle is hyperdynamic. The Ejection Fraction is 65-70%. There is borderline concentric left ventricular hypertrophy. There is no significant aortic valvular stenosis. Doppler and Color Flow revealed no significant aortic regurgitation. Doppler and Color Flow revealed no mitral valve regurgitation noted. Doppler and Color Flow revealed trace tricuspid regurgitation. Vital Signs Date Time Temp Pulse Resp B/P (MAP) Pulse Ox O2 Delivery O2 Flow Rate FiO2 04/28/18 08:00 Nasal Cannula 2.0 04/28/18 05:40 97.7 75 20 113/74 (87) 100 Intake and Output 04/28/18 07:00 Intake Total 2164 ml Balance 2164 ml Intake Oral 1620 ml IV Total 544 ml # Voids 6 # Bowel Movements 1 Review of Relevant I have reviewed the following items jian (where applicable) has been applied. Labs Laboratory Tests Test 04/27/18 09:29 White Blood Count 8.3 x10^3/uL (4.0-11.0) Red Blood Count 4.03 x10^6/uL (3.50-5.40) Hemoglobin 9.5 g/dL (12.0-15.5) Hematocrit 30.8 % (36.0-47.0) Mean Corpuscular Volume 76 fL (79-100) Mean Corpuscular Hemoglobin 24 pg (25-35) Mean Corpuscular Hemoglobin Concent 31 g/dL (31-37) Red Cell Distribution Width 16.1 % (11.5-14.5) Platelet Count 500 x10^3/uL (140-400) Neutrophils (%) (Auto) 81 % (31-73) Lymphocytes (%) (Auto) 8 % (24-48) Monocytes (%) (Auto) 9 % (0-9) Eosinophils (%) (Auto) 2 % (0-3) Basophils (%) (Auto) 1 % (0-3) Neutrophils # (Auto) 6.7 x10^3uL (1.8-7.7) Lymphocytes # (Auto) 0.7 x10^3/uL (1.0-4.8) Monocytes # (Auto) 0.7 x10^3/uL (0.0-1.1) Eosinophils # (Auto) 0.1 x10^3/uL (0.0-0.7) Basophils # (Auto) 0.1 x10^3/uL (0.0-0.2) Sodium Level 141 mmol/L (136-145) Potassium Level 3.5 mmol/L (3.5-5.1) Chloride Level 99 mmol/L (98-107) Carbon Dioxide Level 36 mmol/L (21-32) Anion Gap 6 (6-14) Blood Urea Nitrogen 6 mg/dL (7-20) Creatinine 0.9 mg/dL (0.6-1.0) Estimated GFR (Cockcroft-Gault) 64.8 Glucose Level 161 mg/dL (70-99) Calcium Level 8.9 mg/dL (8.5-10.1) Microbiology 04/23/18 Blood Culture - Preliminary, Resulted NO GROWTH AFTER 4 DAYS... 04/23/18 Urine Culture - Final, Complete 04/23/18 Urine Culture Result 1 (FREDDIE) - Final, Complete Medications Current Medications Albuterol/ Ipratropium (Duoneb) 3 ml STK-MED ONCE .ROUTE ; Start 04/23/18 at 12: 43; Stop 04/23/18 at 12:45; Status DC Acetaminophen (Tylenol) 650 mg 1X ONCE PO Last administered on 04/23/18at 13:38 ; Start 04/23/18 at 13:00; Stop 04/23/18 at 13:01; Status DC Levofloxacin/ Dextrose 100 ml @ 100 mls/hr 1X ONCE IV Last administered on at 13:39; Start 04/23/18 at 13:00; Stop 04/23/18 at 13:59; Status DC Sodium Chloride 1,000 ml @ 1,000 mls/hr Q1H IV Last administered on 04/23/18at 13:39; Start 04/23/18 at 13:00; Stop 04/23/18 at 13:59; Status DC Albuterol/ Ipratropium (Duoneb) 3 ml 1X ONCE NEB Last administered on at 13:03; Start 04/23/18 at 13:00; Stop 04/23/18 at 13:01; Status DC Prednisone (Prednisone) 60 mg 1X ONCE PO Last administered on 04/23/18at 13:38 ; Start 04/23/18 at 13:00; Stop 04/23/18 at 13:01; Status DC Piperacillin Sod/ Tazobactam Sod 3.375 gm/Sodium Chloride 50 ml @ 100 mls/hr 1X ONCE IV Last administered on 04/23/18at 16:17; Start 04/23/18 at 15:30; Stop 04/23/18 at 15:59; Status DC Sodium Chloride 50 ml @ As Directed STK-MED ONCE .ROUTE ; Start 04/23/18 at 16: 07; Stop 04/23/18 at 16:08; Status DC Piperacillin Sod/ Tazobactam Sod (Zosyn) 3.375 gm STK-MED ONCE IV ; Start at 16:07; Stop 04/23/18 at 16:08; Status DC Albuterol Sulfate (Ventolin Hfa) 2 puff BID INH ; Start 04/23/18 at 21:00; Status UNV Acetaminophen/ Hydrocodone Bitart (Lortab 7.5/325) 1 tab PRN Q4HRS PRN PO PAIN Last administered on 04/26/18at 21:27; Start 04/23/18 at 19:30 Albuterol/ Ipratropium (Duoneb) 3 ml RTQID NEB Last administered on 04/28/18at 04:17; Start 04/23/18 at 20:00 Miconazole Nitrate (Monistat-Derm) 1 sean BID TP Last administered on 04/23/18at 20:59; Start 04/23/18 at 21:00; Stop 04/24/18 at 09:21; Status DC Azathioprine (Imuran) 50 mg Q12HR PO Last administered on 04/28/18at 08:48; Start 04/23/18 at 21:00 Non-Formulary Medication (Budesonide/ Formoterol Fumarate (Symbicort 160-4.5 Mcg Inhaler)) 2 puff BID IH ; Start 04/23/18 at 21:00; Status UNV Linezolid (Zyvox) 600 mg BID PO Last administered on 04/28/18at 08:48; Start at 21:00; Stop 04/28/18 at 09:21; Status DC Non-Formulary Medication (Naproxen ) 500 mg BID PO ; Start 04/23/18 at 21:00; Stop 04/23/18 at 21:00; Status DC Non-Formulary Medication (Prednisone ) 5 mg DAILY PO ; Start 04/24/18 at 09:00; Stop 04/24/18 at 09:00; Status DC Non-Formulary Medication (Roflumilast (Daliresp)) 500 mcg DAILY PO ; Start 04/24 at 09:00; Status UNV Non-Formulary Medication (Tiotropium [place] (Spiriva)) 1 cap DAILY IH ; Start 04/24/18 at 09:00; Status UNV Piperacillin Sod/ Tazobactam Sod 3.375 gm/Sodium Chloride 50 ml @ 100 mls/hr Q6H IV Last administered on 04/28/18at 08:48; Start 04/23/18 at 22:00 Heparin Sodium (Porcine) (Heparin Sq) 5,000 unit Q8HRS SQ Last administered on 04/28/18at 05:47; Start 04/23/18 at 22:00 Albuterol Sulfate (Ventolin) 2.5 mg PRN Q6HRS PRN NEB SHORTNESS OF BREATH; Start 04/23/18 at 20:00 Budesonide (Pulmicort) 0.5 mg RTBID NEB Last administered on 04/27/18at 20:31; Start 04/23/18 at 20:00 Lactobacillus Rhamnosus (Culturelle) 1 cap BID PO Last administered on at 08:48; Start 04/23/18 at 21:00 Miconazole Nitrate (Monistat-Derm) 1 sean PRN BID PRN TP SEE COMMENTS; Start at 09:30 Prednisone (Prednisone) 20 mg DAILY PO Last administered on 04/28/18at 08:47; Start 04/27/18 at 09:00 Iohexol (Omnipaque 300 Mg/ml) 75 ml 1X ONCE IV Last administered on 04/27/18at 15:24; Start 04/27/18 at 15:15; Stop 04/27/18 at 15:16; Status DC Info (Do NOT chart on this entry -- for MONITORING) 1 each PRN DAILY PRN MC SEE COMMENTS; Start 04/27/18 at 15:15; Stop 04/29/18 at 15:14 Vancomycin HCl (Vanco Per Pharmacy) 1 each PRN DAILY PRN MC SEE COMMENTS; Start 04/28/18 at 09:30 Active Scripts Active Antifungal Cream (Miconazole Nitrate) 14 Gm Cream..g. 1 Sean TP BID Linezolid 600 Mg Tablet 600 Mg PO BID Reported Daliresp (Roflumilast) 500 Mcg Tablet 500 Mcg PO DAILY LAST DOSE GIVEN: DATE: TODAY TIME: AM NEXT DOSE DUE: DATE: TOMORROW TIME: AM Duoneb 0.5-3(2.5) Mg/3 Ml (Albuterol/Ipratropium) 3 Ml Ampul.neb 3 Ml NEB QID LAST DOSE GIVEN: DATE: TODAY TIME: AM NEXT DOSE DUE: DATE: TODAY TIME: 1 PM Prednisone 2.5 Mg Tablet 5 Mg PO DAILY NEXT DOSE DUE: DATE: TOMORROW TIME: AM NEXT DOSE DUE: DATE: TIME: Imuran (Azathioprine) 50 Mg Tablet 50 Mg PO Q12HR LAST DOSE GIVEN: DATE: TODAY TIME: AM NEXT DOSE DUE: DATE: TODAY TIME: PM Hydrocodone-Apap 7.5-325 (Hydrocodone Bit/Acetaminophen) 1 Each Tablet 1 Tab PO PRN Q4HRS PRN NOT GIVEN TODAY NEXT DOSE DUE: DATE: TODAY TIME: IF AND WHEN NEEDED DATE: TIME: Naproxen 500 Mg Tablet 500 Mg PO BID NEXT DOSE DUE: DATE: TODAY TIME: PM IF NEEDED NEXT DOSE DUE: DATE: TIME: Symbicort 160-4.5 Mcg Inhaler (Budesonide/Formoterol Fumarate) 10.2 Gm Hfa.aer.ad 2 Puff IH BID NOT GIVEN TODAY NEXT DOSE DUE: DATE: TODAY TIME: PM DATE: TIME: Proair Hfa Inhaler (Albuterol Sulfate) 8.5 Gm Hfa.aer.ad 2 Puff INH BID NEXT DOSE DUE: DATE: TODAY TIME: PM NEXT DOSE DUE: DATE: TIME: Spiriva (Tiotropium [place]) 18 Mcg Cap.w.dev 1 Cap IH DAILY NEXT DOSE DUE: DATE: TODAY TIME: WHEN YOU GET HOME NEXT DOSE DUE: DATE: TIME: Vitals/I & O Vital Sign - Last 24 Hours 04/27/18 04/27/18 04/27/18 04/27/18 11:16 11:30 15:33 16:05 Temp 98.2 98.4 Pulse 101 107 107 Resp 20 20 18 B/P (MAP) 112/71 (85) 109/68 (82) 119/72 (88) Pulse Ox 96 99 99 99 O2 Delivery Nasal Cannula Room Air Nasal Cannula Nasal Cannula O2 Flow Rate 2.0 2.0 2.0 04/27/18 04/27/18 04/27/18 04/27/18 16:24 16:33 16:35 16:39 Pulse 110 119 107 Resp 18 18 B/P (MAP) 120/78 (92) 109/66 (80) 119/72 (88) Pulse Ox 99 99 99 O2 Delivery Nasal Cannula Nasal Cannula Nasal Cannula O2 Flow Rate 2.0 2.0 2.0 04/27/18 04/27/18 04/27/18 04/27/18 16:41 16:41 19:05 19:05 Temp 98.0 Pulse 119 110 105 Resp 20 B/P (MAP) 109/66 (80) 120/78 (92) 100/65 (77) Pulse Ox 100 O2 Delivery Nasal Cannula Nasal Cannula O2 Flow Rate 2.0 2.0 04/27/18 04/27/18 04/27/18 04/28/18 20:32 20:37 22:50 04:18 Temp 98.0 Pulse 102 Resp 20 B/P (MAP) 116/72 (87) Pulse Ox 98 98 97 99 O2 Delivery Nasal Cannula Nasal Cannula Nasal Cannula Nasal Cannula O2 Flow Rate 2.0 2.0 2.0 2.0 04/28/18 04/28/18 05:40 08:00 Temp 97.7 Pulse 75 Resp 20 B/P (MAP) 113/74 (87) Pulse Ox 100 O2 Delivery Nasal Cannula Nasal Cannula O2 Flow Rate 2.0 2.0 Intake and Output 04/27/18 04/27/18 04/28/18 15:00 23:00 07:00 Intake Total 510 ml 1151 ml 503 ml Balance 510 ml 1151 ml 503 ml JANET HODGSON APRN Apr 28, 2018 09:30
[2018-04-28] MEDS: BUDESONIDE 0.5 MG/2 ML NEBU NEB SCH (09:35)
[2018-04-28] MEDS ORDERED: VANCOMYCIN 2 GM in IV NORMAL SALINE 500ML 500 ML IV ONE (10:00)
[2018-04-28 10:35] VITALS: BP 111/73
[2018-04-28] MEDS ORDERED: VANC1VIA3 MC (14:31)
[2018-04-28] MEDS ORDERED: VANCOMYCIN 1.25 GM in IV NORMAL SALINE 250ML 250 ML IV SCH (22:00)
--- NOTE | 2018-05-01 16:59 | DS ---
DATE OF DISCHARGE: 04/28/2018 HOSPITAL COURSE: The patient is a 57-year-old female with a history of sarcoid who came in through the office with acute respiratory failure, sepsis, and pneumonia, placed on multiple antibiotics. The patient also had sinus tachycardia and was seen by Cardiology. Heart rate is going up into the 150s. She was seen by Cardiology and felt that her sinus tachycardia was reactive to her breathing problems there. In any case, the patient made good progress during the rest of her hospitalization. She was stabilized and continued on IV antibiotic therapy. The patient had normal renal function of 6 and 0.9. Her TSH was slightly low at 0.125. The patient is slightly anemic. The patient made good progress during the rest of her hospitalization and was discharged. She will continue IV antibiotic therapy that will be followed by pharmacy as an outpatient. She will continue with breathing treatments. Blood and urine cultures were unremarkable. IMPRESSION: Sepsis, sinus tachycardia, pneumonia of unspecified etiology, acute exacerbation of chronic obstructive pulmonary disease, history of sarcoid, acute respiratory failure, emphysema. The patient will be discharged home and followed up as an outpatient. She was referred back to her ssis architect down at as well as other specialty areas as well. The patient has had no complications. See MRAD. Decreased activity, regular diet. PLAN: As above. GABE PEARCE MD DR: ZORAN/garland JOB#: [id number] / [id number]
== END 2018-04-28 15:54 | disposition home or self-care (01) | DRG 871 ==
LOC: ER 12:28 → 1 SOUTH 16:22
PROVIDERS: ADMIT Family Medicine; ATTEND Family Medicine
PROC: 02HV33Z Insertion of Infusion Device into Superior Vena Cava, Percutaneous Approach (ICD-10-PCS; principal; 2018-04-28)
PROC: B5181ZA Fluoroscopy of Superior Vena Cava using Low Osmolar Contrast, Guidance (ICD-10-PCS; 2018-04-28)
PROC: B548ZZA Ultrasonography of Superior Vena Cava, Guidance (ICD-10-PCS; 2018-04-28)
DX: A41.9 Sepsis, unspecified organism (principal); J18.9 Pneumonia, unspecified organism; J96.00 Acute respiratory failure, unspecified whether with hypoxia or hypercapnia; J44.0 Chronic obstructive pulmonary disease with (acute) lower respiratory infection; J44.1 Chronic obstructive pulmonary disease with (acute) exacerbation; M19.90 Unspecified osteoarthritis, unspecified site; D86.9 Sarcoidosis, unspecified; I51.7 Cardiomegaly; Y95 Nosocomial condition; Z86.010 Personal history of colon polyps; Z87.891 Personal history of nicotine dependence
CPT/HCPCS: 36415; 71046; 71275; 80048; 81001; 82553; 83605; 83880; 84443; 84484; 85025; 87040; 87086; 93005; 93306; 94640; 96365; 96366; 96368; G0238; J1956; J2543; J3370; J7040; J7500; J7512; J7620; J7626; Q9967; 97110; 97530; 97535; 99285-25; J7030

== ENCOUNTER 2018-05-01 07:01 | Emergency (ER) | payer MEDICARE, OTHER ==
[~2018-05-01] VITALS: Ht 162.6 cm; Wt 77.0 kg
[~2018-05-01 07:01] MED LIST changes: -IPRA3AMP NEB; +IPRA3AMP29 NEB; +VANC1VIA3 MC
--- NOTE | 2018-05-01 07:20 | EKG ---
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
[2018-05-01] MEDS ORDERED: IPRATRPIUM/ALBUTEROL 0.5/2.5MG 3 ML NEBU. NEB ONE (07:30)
--- NOTE | 2018-05-01 07:36 | RAD ---
Portable chest, 05/01/2018: HISTORY: Shortness of breath, recent pneumonia Comparison is made to a study from 04/23/2018. A right PICC extends into the inferior aspect of the superior vena cava. The heart size is normal. There is superior retraction of the marci with mild upper lobe opacities compatible with scarring. No new pulmonary opacities are evident. No pleural fluid is delineated. IMPRESSION: 1. The right PICC is in satisfactory position. 2. Bilateral pleural-parenchymal scarring. 3. No acute abnormality is detected. Electronically signed by: Prabhjot Renee MD (05/01/2018 7:33 AM) [facility]
[2018-05-01] MEDS ORDERED: methylPREDNISolone SOD SUCC PF 125 MG/2 ML VIAL. IV ONE (07:40)
--- NOTE | 2018-05-01 07:47 | ED.ADGEN ---
Past History Past Medical History: Arthritis, COPD, Pneumonia Past Surgical History: No Surgical History Alcohol Use: None Drug Use: None Adult General HPI HPI Patient is a 57 year old female who presents with dyspnea. Patient has known history of COPD. She has had multiple admissions in the last 6 weeks for exacerbation as well as pneumonia. She is currently undergoing treatment for presumed hospital-acquired pneumonia. She is receiving vancomycin injections through a PICC line. She was just discharged from this hospital 7 days earlier. She presents today complaining of acute dyspnea at home. She had symptoms that worsen since about 2:00 this morning. She used her treatments at home but these were not effective. At baseline, she is on 2 L of oxygen. No fever. She does complain of ongoing cough and she does have some chills. Her sputum is reported to be clear. Review of Systems Review of Systems Constitutional: Denies fever Eyes: Denies change in visual acuity HENT: Denies nasal congestion Respiratory: as documented above Cardiovascular: No additional information GI: Denies abdominal pain, nausea, vomiting : Denies dysuria or hematuria Musculoskeletal: Denies back pain or joint pain Integument: Denies rash Neurologic: Denies headache All other systems were reviewed and found to be within normal limits, except as documented in this note. Current Medications Current Medications Current Medications Medications (Trade) Dose Ordered Sig/Maxwell Start Time Stop Time Status Last Admin Dose Admin Albuterol Sulfate (Ventolin) 10 mg 1X ONCE 05/01/18 08:00 05/01/18 08:03 DC 05/01/18 08:16 10 MG Albuterol/ Ipratropium (Duoneb) 3 ml 1X ONCE 05/01/18 07:30 05/01/18 07:31 DC 05/01/18 07:33 3 ML Methylprednisolone Sodium Succinate (SOLU-Medrol 125MG VIAL) 125 mg 1X ONCE 05/01/18 07:40 05/01/18 07:41 DC 05/01/18 07:33 125 MG Sodium Chloride 1,000 ml @ 250 mls/hr 1X ONCE 05/01/18 08:30 05/01/18 12:29 05/01/18 08:30 250 MLS/HR Allergies Allergies Allergies Coded Allergies Type Severity Reaction Last Updated Verified No Known Drug Allergies 11/01/14 No Physical Exam Physical Exam Constitutional: Well developed, well nourished, moderate respiratory distress HENT: Normocephalic, atraumatic, bilateral external ears normal, oropharynx moist Eyes: EOMI, conjunctiva normal Neck: Normal range of motion, no tenderness Cardiovascular: tachycardic heart rate regular rhythm, no murmur Lungs & Thorax: moderate respiratory distress. Wheezes and diminished air movement in all ortiz. prolonged expiratory phase Abdomen: Bowel sounds normal, soft Skin: Warm, dry, no erythema, no rash Extremities: Normal ROM intact, no edema Neurologic: Alert and oriented X 3 Psychologic: Affect normal Current Patient Data Vital Signs Vital Signs Date Time Temp Pulse Resp B/P (MAP) Pulse Ox O2 Delivery O2 Flow Rate FiO2 05/01/18 09:03 119 20 153/71 (98) 98 Nasal Cannula 2.0 05/01/18 07:02 98.3 Lab Results Laboratory Tests Test 05/01/18 07:30 White Blood Count 16.2 x10^3/uL (4.0-11.0) #H Red Blood Count 3.96 x10^6/uL (3.50-5.40) Hemoglobin 9.1 g/dL (12.0-15.5) L Hematocrit 30.4 % (36.0-47.0) L Mean Corpuscular Volume 77 fL (79-100) L Mean Corpuscular Hemoglobin 23 pg (25-35) L Mean Corpuscular Hemoglobin Concent 30 g/dL (31-37) L Red Cell Distribution Width 16.6 % (11.5-14.5) H Platelet Count 541 x10^3/uL (140-400) H Neutrophils (%) (Auto) 76 % (31-73) H Lymphocytes (%) (Auto) 6 % (24-48) L Monocytes (%) (Auto) 17 % (0-9) H Eosinophils (%) (Auto) 1 % (0-3) Basophils (%) (Auto) 1 % (0-3) Neutrophils # (Auto) 12.3 x10^3uL (1.8-7.7) H Lymphocytes # (Auto) 1.0 x10^3/uL (1.0-4.8) Monocytes # (Auto) 2.7 x10^3/uL (0.0-1.1) H Eosinophils # (Auto) 0.1 x10^3/uL (0.0-0.7) Basophils # (Auto) 0.1 x10^3/uL (0.0-0.2) Segmented Neutrophils % 74 % (35-66) H Band Neutrophils % 3 % (0-9) Lymphocytes % 9 % (24-48) L Monocytes % 10 % (0-10) Eosinophils % 3 % (0-5) Platelet Estimate Increased (ADEQUATE) Platelet Clumps, EDTA Present Sodium Level 141 mmol/L (136-145) Potassium Level 3.7 mmol/L (3.5-5.1) Chloride Level 105 mmol/L (98-107) Carbon Dioxide Level 33 mmol/L (21-32) H Anion Gap 3 (6-14) L Blood Urea Nitrogen 29 mg/dL (7-20) H Creatinine 6.7 mg/dL (0.6-1.0) H Estimated GFR (Cockcroft-Gault) 6.4 Glucose Level 97 mg/dL (70-99) Lactic Acid Level 0.8 mmol/L (0.4-2.0) Calcium Level 8.9 mg/dL (8.5-10.1) Troponin I Quantitative < 0.017 ng/mL (0-0.055) [id number]-Type Natriuretic Peptide 1078 pg/mL (0-124) H EKG EKG Sinus Tachy. No ST changes concerning for ischemia Radiology/Procedures Radiology/Procedures IMPRESSION: 1. The right PICC is in satisfactory position. 2. Bilateral pleural-parenchymal scarring. 3. No acute abnormality is detected. Course & Med Decision Making Course & Med Decision Making Pertinent Labs and Imaging studies reviewed. (See chart for details) Patient is seen and examined shortly after arrival. She has moderate respiratory distress. DuoNeb treatment is ordered. Solu-Medrol. We'll check basic labs. Chest x-ray. 08:40: All results are reviewed. The patient's chest x-ray is improved from prior. I was notified of the patient's vancomycin trough from yesterday which was over 40. Her be MP came back with elevated creatinine over 6. At baseline, the patient has normal range creatinine. The likely culprit seems vancomycin which she has been receiving infusions of since she left the hospital 7 days earlier. Regarding her COPD, the patient received 1 DuoNeb treatment in the ER. This was followed by 1 hour long albuterol and realize treatment. Her dyspnea symptoms did significantly improve. She was given 125 mg of Solu-Medrol. Given her new acute kidney injury, the patient will require admission and nephrology consult. We do not have nephrology at [facility]. The patient will be transferred to [facility]. I discussed this patient with Dr. Hunter of the hospitalist service at [facility] and she did accept the patient for transfer. I also discussed all the results with the patient and the plan of care. I answered all of her questions. She is agreeable to the plan of care including transfer to [facility]. Appropriate paperwork is completed. IV normal saline is started at 250 per hour for one liter. Final Impression Final Impression COPD exacerbation Maria Disclaimer Maria Disclaimer This electronic medical record was generated, in whole or in part, using a voice recognition dictation system. HANNAH BALBUENA DO May 01, 2018 07:47
[2018-05-01 07:53] LABS: BASO # 0.1 x10^3/uL (0.0-0.2); BASO % 1 % (0-3); EOS # 0.1 x10^3/uL (0.0-0.7); EOS % 1 % (0-3); HEMATOCRIT 30.4 % (36.0-47.0); HEMOGLOBIN 9.1 g/dL (12.0-15.5); LYMPH % 6 % (24-48); MEAN CORPUSCULAR HEMOGLOBIN 23 pg (25-35); MEAN CORPUSCULAR HGB CONC 30 g/dL (31-37); MEAN CORPUSCULAR VOLUME 77 fL (79-100); MONO # 2.7 x10^3/uL (0.0-1.1); MONO % 17 % (0-9); NEUT # 12.3 x10^3uL (1.8-7.7); NEUT % 76 % (31-73); PLATELET COUNT 541 x10^3/uL (140-400); RED BLOOD COUNT 3.96 x10^6/uL (3.50-5.40); RED CELL DISTRIBUTION WIDTH 16.6 % (11.5-14.5); WHITE BLOOD COUNT 16.2 x10^3/uL (4.0-11.0)
[2018-05-01] MEDS ORDERED: ALBUTEROL SULFATE 2.5 MG/3 ML NEBU. CONT NEB ONE (08:00)
[2018-05-01 08:11] LABS: GFR 6.4; POTASSIUM 3.7 mmol/L (3.5-5.1)
[2018-05-01 08:21] LABS: CALCIUM 8.9 mg/dL (8.5-10.1); CREATININE 6.7 mg/dL (0.6-1.0)
[2018-05-01] MEDS ORDERED: IV NORMAL SALINE 1,000ML 1,000 ML IV ONE (08:30)
[2018-05-01 08:39] LABS: % BANDS 3 % (0-9); % EOS 3 % (0-5); % LYMPHS 9 % (24-48); % MONOS 10 % (0-10); % SEGS 74 % (35-66); PLATELET CLUMP PRESENT; PLT ESTIMATE INCREASED (ADEQUATE)
[2018-05-01 10:03] VITALS: BP 142/74
== END 2018-05-01 11:12 | disposition short-term general hospital (02) ==
LOC: ER 07:01
DX: J44.1 Chronic obstructive pulmonary disease with (acute) exacerbation (principal); M19.90 Unspecified osteoarthritis, unspecified site
CPT/HCPCS: 36415; 71045; 80048; 83605; 83880; 84484; 85007; 85025; 87040; 93005; 94644; 96374; 99285; J2930; J7613; J7620; 94640; J7030

== ENCOUNTER → 2019-02-19 | Outpatient (CLI) | payer OTHER ==
[~2019-02-19] MED LIST changes: -ALBU18HF IH; +ALBU2.5V8 IH; +ALBU2.5V8 INH; -ALBU8.5H8 INH; -HYDR-2762 PO; +HYDR-2765 PO; +LINE600T33 PO; -LINE600T7 PO
[2019-02-19 14:07] LABS: BASO # 0.1 x10^3/uL (0.0-0.2); BASO % 1 % (0-3); EOS # 0.3 x10^3/uL (0.0-0.7); EOS % 3 % (0-3); HEMATOCRIT 37.3 % (36.0-47.0); HEMOGLOBIN 11.6 g/dL (12.0-15.5); LYMPH # 2.2 x10^3/uL (1.0-4.8); LYMPH % 22 % (24-48); MEAN CORPUSCULAR HEMOGLOBIN 24 pg (25-35); MEAN CORPUSCULAR HGB CONC 31 g/dL (31-37); MEAN CORPUSCULAR VOLUME 75 fL (79-100); MONO # 0.9 x10^3/uL (0.0-1.1); MONO % 9 % (0-9); NEUT # 6.5 x10^3uL (1.8-7.7); NEUT % 65 % (31-73); PLATELET COUNT 368 x10^3/uL (140-400); RED BLOOD COUNT 4.96 x10^6/uL (3.50-5.40); RED CELL DISTRIBUTION WIDTH 14.3 % (11.5-14.5); WHITE BLOOD COUNT 10.1 x10^3/uL (4.0-11.0)
[2019-02-19 14:29] LABS: ALBUMIN 4.1 g/dL (3.4-5.0); CALCIUM 9.1 mg/dL (8.5-10.1); GFR 57.1; POTASSIUM 4.1 mmol/L (3.5-5.1); TOTAL BILIRUBIN 0.6 mg/dL (0.2-1.0); TOTAL PROTEIN 8.4 g/dL (6.4-8.2)
[2019-02-20 10:28] LABS: THYROID STIM HORMONE (TSH) 0.578 uIU/mL (0.358-3.740)
== END | disposition home or self-care (01) ==
LOC: LAB 13:46
PROVIDERS: ATTEND Family Medicine
DX: E03.9 Hypothyroidism, unspecified (principal); D64.9 Anemia, unspecified; E78.5 Hyperlipidemia, unspecified; I10 Essential (primary) hypertension; J44.9 Chronic obstructive pulmonary disease, unspecified; M47.26 Other spondylosis with radiculopathy, lumbar region; M47.898 Other spondylosis, sacral and sacrococcygeal region; Z87.891 Personal history of nicotine dependence
CPT/HCPCS: 36415; 80053; 80061; 84443; 85025

== ENCOUNTER → 2019-03-23 | Outpatient (CLI) | payer OTHER ==
--- NOTE | 2019-03-25 09:23 | RAD ---
DATE: 03/23/2019 EXAM: DIGITAL SCREEN BILAT W/CAD HISTORY: Routine screening COMPARISON: 01/28/2012 This study was interpreted with the benefit of Computerized Aided Detection (CAD). Breast Density: SCATTERED The breast parenchyma shows scattered fibroglandular densities. Breast parenchyma level B. FINDINGS: 2-D and 3-D tomosynthesis imaging was performed in CC and MLO projections. There is an unchanged smooth heart shaped nodule at the 12:00 location in the left breast. No new or enlarging breast densities are seen. Benign type calcifications are present bilaterally. No suspicious microcalcifications have developed. Benign-appearing lymph nodes are again noted in both axillary regions. IMPRESSION: Stable mammograms without evidence of malignancy. BI-RADS CATEGORY: 2 BENIGN FINDING(S) RECOMMENDED FOLLOW-UP: 12M 12 MONTH FOLLOW-UP PQRS compliance statement: Patient information was entered into a reminder system with a target due date for the next mammogram. Mammography is a sensitive method for finding small breast cancers, but it does not detect them all and is not a substitute for careful clinical examination. A negative mammogram does not negate a clinically suspicious finding and should not result in delay in biopsying a clinically suspicious abnormality. "Our facility is accredited by the [employer] Mammography Program."
== END | disposition home or self-care (01) ==
LOC: MAMMO 13:21
PROVIDERS: ATTEND Family Medicine
DX: Z12.31 Encounter for screening mammogram for malignant neoplasm of breast (principal); N63.21 Unspecified lump in the left breast, upper outer quadrant; N64.89 Other specified disorders of breast
CPT/HCPCS: 77067

== ENCOUNTER → 2019-04-30 | Outpatient (CLI) | payer OTHER ==
[2019-04-30 17:30] LABS: BASO # 0.1 x10^3/uL (0.0-0.2); BASO % 2 % (0-3); EOS # 0.3 x10^3/uL (0.0-0.7); EOS % 5 % (0-3); HEMATOCRIT 37.3 % (36.0-47.0); HEMOGLOBIN 11.5 g/dL (12.0-15.5); LYMPH # 2.3 x10^3/uL (1.0-4.8); LYMPH % 32 % (24-48); MEAN CORPUSCULAR HEMOGLOBIN 23 pg (25-35); MEAN CORPUSCULAR HGB CONC 31 g/dL (31-37); MEAN CORPUSCULAR VOLUME 75 fL (79-100); MONO % 14 % (0-9); NEUT # 3.4 x10^3uL (1.8-7.7); NEUT % 48 % (31-73); PLATELET COUNT 385 x10^3/uL (140-400); RED BLOOD COUNT 4.97 x10^6/uL (3.50-5.40); RED CELL DISTRIBUTION WIDTH 14.5 % (11.5-14.5); WHITE BLOOD COUNT 7.1 x10^3/uL (4.0-11.0)
[2019-04-30 17:37] LABS: ALBUMIN/GLOBULIN RATIO 1.2 (1.0-1.7); CALCIUM 9.4 mg/dL (8.5-10.1); CREATININE 0.9 mg/dL (0.6-1.0); GFR 78.1; POTASSIUM 4.1 mmol/L (3.5-5.1); TOTAL BILIRUBIN 0.5 mg/dL (0.2-1.0); TOTAL PROTEIN 7.3 g/dL (6.4-8.2)
== END | disposition home or self-care (01) ==
LOC: LAB 16:50
PROVIDERS: ATTEND Family Medicine
DX: I95.1 Orthostatic hypotension (principal); R06.02 Shortness of breath; R63.4 Abnormal weight loss
CPT/HCPCS: 36415; 80053; 85025

== ENCOUNTER 2019-05-18 13:12 | Emergency (ER) | payer OTHER ==
[~2019-05-18] VITALS: Ht 165.1 cm; Wt 64.9 kg
[2019-05-18] MEDS ORDERED: IV NORMAL SALINE 1,000ML 1,000 ML IV SCH (13:57)
[2019-05-18 15:37] LABS: BASO % 1 % (0-3); EOS # 0.2 x10^3/uL (0.0-0.7); EOS % 3 % (0-3); HEMATOCRIT 35.6 % (36.0-47.0); HEMOGLOBIN 10.8 g/dL (12.0-15.5); LYMPH # 1.3 x10^3/uL (1.0-4.8); LYMPH % 17 % (24-48); MEAN CORPUSCULAR HEMOGLOBIN 23 pg (25-35); MEAN CORPUSCULAR HGB CONC 30 g/dL (31-37); MEAN CORPUSCULAR VOLUME 76 fL (79-100); MONO % 14 % (0-9); NEUT # 4.8 x10^3uL (1.8-7.7); NEUT % 66 % (31-73); PLATELET COUNT 373 x10^3/uL (140-400); RED BLOOD COUNT 4.67 x10^6/uL (3.50-5.40); RED CELL DISTRIBUTION WIDTH 14.8 % (11.5-14.5); WHITE BLOOD COUNT 7.3 x10^3/uL (4.0-11.0)
[2019-05-18 16:04] LABS: ALBUMIN 3.8 g/dL (3.4-5.0); ALBUMIN/GLOBULIN RATIO 1.2 (1.0-1.7); CALCIUM 9.5 mg/dL (8.5-10.1); CREATININE 0.7 mg/dL (0.6-1.0); GFR 104.4; MAGNESIUM 2.2 mg/dL (1.8-2.4); POTASSIUM 4.2 mmol/L (3.5-5.1); TOTAL BILIRUBIN 0.5 mg/dL (0.2-1.0); TOTAL PROTEIN 7.1 g/dL (6.4-8.2)
[2019-05-18 16:17] LABS: % EOS 2 % (0-5); % LYMPHS 16 % (24-48); % MONOS 12 % (0-10); % SEGS 70 % (35-66)
[2019-05-18 16:18] LABS: ANISOCYTOSIS SLIGHT; HYPOCHROMIA SLIGHT; PLT ESTIMATE ADEQUATE (ADEQUATE)
[2019-05-18 17:11] LABS: BACTERIA,URINE FEW /HPF (0-FEW); BILIRUBIN,URINE NEG (NEG); CLARITY,URINE CLOUDY; COLOR,URINE YELLOW; GLUCOSE,URINE NEG (NEG); NITRITE,URINE NEG (NEG); RBC,URINE OCC /HPF (0-2); SQUAMOUS EPITHELIAL CELL,UR OCC /LPF; UROBILINOGEN,URINE 0.2 mg/dL (0.2 mg/dL)
--- NOTE | 2019-05-18 17:36 | PHYS DOC ---
Past History Past Medical History: Arthritis, COPD, Pneumonia Past Surgical History: No Surgical History Alcohol Use: None Drug Use: None Adult General Chief Complaint Chief Complaint: DIZZY/LIGHT HEADED HPI HPI Patient is a 58-year-old female who presents with complaint of lightheadedness/dizziness for the last few days. She is also had a large amount of weight loss over the last few months. She states that she had spoken with Dr. Bartholomew's office and she was told to come into the emergency room for evaluation. She denies any chest pain or shortness of breath. She does indicate that she has chronic back pain. She denies any vomiting or diarrhea. She indicates that her appetite has been good. She states that one thing that she has changed in her diet has been that she has stopped eating candy and other sweets to include sodas.[] Review of Systems Review of Systems Constitutional: Denies fever or chills [] Eyes: Denies change in visual acuity, redness, or eye pain [] HENT: Denies nasal congestion or sore throat [] Respiratory: Denies cough or shortness of breath [] Cardiovascular: No additional information not addressed in HPI [] GI: Denies abdominal pain, nausea, vomiting or diarrhea [] : Denies dysuria or hematuria [] Integument: Denies rash or skin lesions [] Neurologic: Denies headache, focal weakness or sensory changes [] All other systems were reviewed and found to be within normal limits, except as documented in this note. Current Medications Current Medications Current Medications Medications (Trade) Dose Ordered Sig/Maxwell Start Time Stop Time Status Last Admin Dose Admin Sodium Chloride 1,000 ml @ 1,000 mls/hr Q1H 05/18/19 13:57 05/18/19 14:56 DC 05/18/19 14:23 1,000 MLS/HR Allergies Allergies Allergies Coded Allergies Type Severity Reaction Last Updated Verified NKMA Allergy Unknown 05/23/18 Yes vancomycin Adverse Reaction Severe RENAL FAILURE 05/01/18 Yes Physical Exam Physical Exam Constitutional: Well developed, well nourished, no acute distress, non-toxic appearance. [] HENT: Normocephalic, atraumatic, bilateral external ears normal, oropharynx moist, no oral exudates, nose normal. [] Eyes: PERRLA, EOMI, conjunctiva normal, no discharge. [] Neck: Normal range of motion, no tenderness, supple, no stridor. [] Cardiovascular:Heart rate regular rhythm, no murmur [] Lungs & Thorax: Bilateral breath sounds clear to auscultation [] Abdomen: Bowel sounds normal, soft, no tenderness. [] Skin: Warm, dry, no erythema, no rash. [] Extremities: No tenderness, no cyanosis, no clubbing, ROM intact, no edema. [] Neurologic: Alert and oriented X 3, no focal deficits noted. [] Current Patient Data Vital Signs Vital Signs Date Time Temp Pulse Resp B/P (MAP) Pulse Ox O2 Delivery O2 Flow Rate FiO2 05/18/19 13:30 97.7 112 18 98 Room Air Lab Results Laboratory Tests Test 05/18/19 15:00 05/18/19 16:40 White Blood Count 7.3 x10^3/uL (4.0-11.0) Red Blood Count 4.67 x10^6/uL (3.50-5.40) Hemoglobin 10.8 g/dL (12.0-15.5) L Hematocrit 35.6 % (36.0-47.0) L Mean Corpuscular Volume 76 fL (79-100) L Mean Corpuscular Hemoglobin 23 pg (25-35) L Mean Corpuscular Hemoglobin Concent 30 g/dL (31-37) L Red Cell Distribution Width 14.8 % (11.5-14.5) H Platelet Count 373 x10^3/uL (140-400) Neutrophils (%) (Auto) 66 % (31-73) Lymphocytes (%) (Auto) 17 % (24-48) L Monocytes (%) (Auto) 14 % (0-9) H Eosinophils (%) (Auto) 3 % (0-3) Basophils (%) (Auto) 1 % (0-3) Neutrophils # (Auto) 4.8 x10^3uL (1.8-7.7) Lymphocytes # (Auto) 1.3 x10^3/uL (1.0-4.8) Monocytes # (Auto) 1.0 x10^3/uL (0.0-1.1) Eosinophils # (Auto) 0.2 x10^3/uL (0.0-0.7) Basophils # (Auto) 0.0 x10^3/uL (0.0-0.2) Segmented Neutrophils % 70 % (35-66) H Lymphocytes % 16 % (24-48) L Monocytes % 12 % (0-10) H Eosinophils % 2 % (0-5) Platelet Estimate Adequate (ADEQUATE) Hypochromasia Slight Anisocytosis Slight Sodium Level 142 mmol/L (136-145) Potassium Level 4.2 mmol/L (3.5-5.1) Chloride Level 104 mmol/L (98-107) Carbon Dioxide Level 34 mmol/L (21-32) H Anion Gap 4 (6-14) L Blood Urea Nitrogen 15 mg/dL (7-20) Creatinine 0.7 mg/dL (0.6-1.0) Estimated GFR (Cockcroft-Gault) 104.4 BUN/Creatinine Ratio 21 (6-20) H Glucose Level 93 mg/dL (70-99) Calcium Level 9.5 mg/dL (8.5-10.1) Magnesium Level 2.2 mg/dL (1.8-2.4) Total Bilirubin 0.5 mg/dL (0.2-1.0) Aspartate Amino Transferase (AST) 13 U/L (15-37) L Alanine Aminotransferase (ALT) 19 U/L (14-59) Alkaline Phosphatase 54 U/L (46-116) Total Protein 7.1 g/dL (6.4-8.2) Albumin 3.8 g/dL (3.4-5.0) Albumin/Globulin Ratio 1.2 (1.0-1.7) Urine Collection Type Unknown Urine Color Yellow Urine Clarity Cloudy Urine pH 7.0 Urine Specific [place] 1.020 Urine Protein Trace (NEG-TRACE) Urine Glucose (UA) Neg mg/dL (NEG) Urine Ketones (Stick) Neg mg/dL (NEG) Urine Blood Neg (NEG) Urine Nitrite Neg (NEG) Urine Bilirubin Neg (NEG) Urine Urobilinogen Dipstick 0.2 mg/dL (0.2 mg/dL) Urine Leukocyte Esterase Small (NEG) Urine RBC Occ /HPF (0-2) Urine WBC 1-4 /HPF (0-4) Urine Squamous Epithelial Cells Occ /LPF Urine Bacteria Few /HPF (0-FEW) EKG EKG [] Radiology/Procedures Radiology/Procedures [] Course & Med Decision Making Course & Med Decision Making Pertinent Labs and Imaging studies reviewed. (See chart for details) [] Dragon Disclaimer Dragon Disclaimer This electronic medical record was generated, in whole or in part, using a voice recognition dictation system. Departure Departure: Impression: Primary Impression: Weight loss Additional Impression: Dizziness Disposition: 01 HOME, SELF-CARE Condition: STABLE Referrals: GABE BARTHOLOMEW MD (PCP) Patient Instructions: Dizziness Problem Qualifiers SUNSHINE DODSON Jr. DO May 18, 2019 17:35
[2019-05-18 17:45] VITALS: BP 140/66
== END 2019-05-18 17:52 | disposition home or self-care (01) ==
LOC: ER 13:12
DX: R63.4 Abnormal weight loss (principal); R42 Dizziness and giddiness; G89.29 Other chronic pain; M54.89 Other dorsalgia; M19.90 Unspecified osteoarthritis, unspecified site; J44.9 Chronic obstructive pulmonary disease, unspecified; Z68.23 Body mass index [BMI] 23.0-23.9, adult; Z88.1 Allergy status to other antibiotic agents
CPT/HCPCS: 36415; 80053; 81001; 83735; 84443; 85007; 85025; 87086; 96360; 96361; 99285-25; J7030

== ENCOUNTER 2019-10-19 17:26 | Emergency (ER) | payer OTHER ==
[~2019-10-19] VITALS: Ht 165.1 cm; Wt 59.0 kg
[~2019-10-19 17:26] MED LIST changes: +LINE600T15 PO; -LINE600T33 PO
[2019-10-19] MEDS ORDERED: methylPREDNISolone SOD SUCC PF 125 MG/2 ML VIAL. ONE (17:36)
[2019-10-19] MEDS ORDERED: IPRATRPIUM/ALBUTEROL 0.5/2.5MG 3 ML NEBU. ONE (17:36)
[2019-10-19] MEDS ORDERED: IPRATRPIUM/ALBUTEROL 0.5/2.5MG 3 ML NEBU. NEB ONE (17:45)
[2019-10-19] MEDS ORDERED: ALBUTEROL SULFATE 2.5 MG/3 ML NEBU. CONT NEB ONE (17:45)
[2019-10-19] MEDS ORDERED: methylPREDNISolone SOD SUCC PF 125 MG/2 ML VIAL. IV ONE (17:45)
--- NOTE | 2019-10-19 18:03 | PHYS DOC ---
Past History Past Medical History: Arthritis, COPD, Pneumonia, Renal Failure (SUNSHINE DODSON Jr., DO) Past Surgical History: No Surgical History (SUNSHINE DODSON Jr., DO) Alcohol Use: None Drug Use: None (SUNSHINE DODSON Jr., DO) Adult General Chief Complaint Chief Complaint: SHORTNESS OF BREATH HPI HPI Patient is a 59-year-old female who presents with complaint of shortness of breath for the last week. Patient indicates that she has a history of COPD and is on home oxygen. She states that the shortness of breath is really been getting a lot worse over the last couple of days and states that she has developed a productive cough. EMS reports that patient's O2 sat was 89% on 2 L that she is normally on. She is not aware of any fever. She states that her shortness breath is worsened with minimal exertion. She denies any abdominal pain, nausea or vomiting. She does indicate that she has some discomfort in her right lower chest, especially with coughing.[] (SUNSHINE DODSON Jr., DO) Review of Systems Review of Systems Constitutional: Denies fever or chills [] Respiratory: Positive productive cough and shortness of breath [] Cardiovascular: No additional information not addressed in HPI [] GI: Denies abdominal pain, nausea, vomiting or diarrhea [] Integument: Denies rash or skin lesions [] Neurologic: Denies headache, focal weakness or sensory changes [] All other systems were reviewed and found to be within normal limits, except as documented in this note. (SUNSHINE DODSON Jr., DO) Current Medications Current Medications Current Medications Medications (Trade) Dose Ordered Sig/Maxwell Start Time Stop Time Status Last Admin Dose Admin Albuterol Sulfate (Ventolin) 7.5 mg 1X ONCE 10/19/19 17:45 10/19/19 17:47 DC Albuterol/ Ipratropium (Duoneb) 3 ml 1X ONCE 10/19/19 17:45 10/19/19 17:47 DC Methylprednisolone Sodium Succinate (SOLU-Medrol 125MG VIAL) 125 mg 1X ONCE 10/19/19 17:45 10/19/19 17:47 DC (SUNSHINE DODSON Jr., DO) Allergies Allergies Allergies Coded Allergies Type Severity Reaction Last Updated Verified NKMA Allergy Unknown 05/23/18 Yes vancomycin Adverse Reaction Severe RENAL FAILURE 05/01/18 Yes (DODSON,SUNSHINE D Jr. DO) Physical Exam Physical Exam Constitutional: Well developed, well nourished, in mild respiratory distress, non-toxic appearance. [] HENT: Normocephalic, atraumatic, bilateral external ears normal, oropharynx moist, no oral exudates, nose normal. [] Eyes: PERRLA, EOMI, conjunctiva normal, no discharge. [] Neck: Normal range of motion, no tenderness, supple. [] Cardiovascular: Tachycardic rate with regular rhythm[] Lungs & Thorax: Moderately reduced breath sounds are noted bilaterally with fine inspiratory wheezes and fine rhonchi noted in the right lung base to auscultation [] Abdomen: Bowel sounds normal, soft, no tenderness. [] Skin: Warm, dry, no erythema, no rash. [] Extremities: No tenderness, no cyanosis, no clubbing, ROM intact. [] Neurologic: Alert and oriented X 3, no focal deficits noted. [] (SUNSHINE DODSON Jr., DO) Current Patient Data Vital Signs Vital Signs Date Time Temp Pulse Resp B/P (MAP) Pulse Ox O2 Delivery O2 Flow Rate FiO2 10/19/19 17:49 97 Nasal Cannula 2.0 10/19/19 17:28 97.4 132 36 (SUNSHINE DODSON Jr., DO) EKG EKG EKG demonstrates sinus tachycardia with rate of 130.[] (SUNSHINE DODSON Jr., DO) Radiology/Procedures Radiology/Procedures [] (SUNSHINE DODSON Jr., DO) Impressions: Study: PORTABLE CHEST 1V Indication: Shortness of breath. COPD. Comparison: 05/31/2018 Findings: Prominent left pneumothorax involving approximately 50 percent left hemithoracic volume. There appears to be very mild rightward shift however this could also be related to slight patient rotation. No lobar infiltrate on the right. Pleuroparenchymal scarring. More localized areas of haziness involving the partially collapsed left lung are nonspecific given the presence of collapse. Impression: 1. Prominent left pneumothorax involving approximately 50 percent left hemithoracic volume. There appears to be very mild rightward mediastinal shift however the patient is slightly rotated which could contribute to this appearance. 2. Pleuroparenchymal scarring suggestive of underlying emphysema. The left lung is not well evaluated due to its partially collapsed state. No focal consolidation of the right lung. The ordering team was aware of this finding at the time of dictation. Electronically signed by: KAIT BROWNE MD (10/19/2019 6:57 PM) [facility] DICTATED AND SIGNED BY: KAIT BROWNE MD DATE: 10/19/191856 CC: SUNSHINE DODSON Jr., DO; PETER VILLAR DO; GABE PEARCE MD ~ (PETER VILLAR DO) Course & Med Decision Making Course & Med Decision Making Pertinent Labs and Imaging studies reviewed. (See chart for details) Patient moved to room upon arrival was evaluated by ER medical staff after which an IV was established and blood work was drawn. A chest x-ray has been obtained as well. Patient initiated on 1 hour continuous nebulizer treatment. At this time patient's workup is pending and patient is being signed out to oncoming ER physician, Dr. Villar at 6:00 PM. (SUNSHIEN DODSON Jr., DO) Course & Med Decision Making The patient has a left-sided pneumothorax with no mediastinal shift or a minimal amount of mediastinal shift. See official read for details. There is no evidence of hemothorax. The patient has no history of trauma. This appears to be spontaneous. We will place a Cook chest tube and transfer the patient to [facility]. I discussed the patient's diagnosis and plan of care. She stated verbal understanding as did her significant other. She is in agreement with transfer to [facility] for admission. She has also agreed to chest tube at this facility. The patient's chest tube insertion completely without complication. She tolerated the procedure well. See note below for more details. 37 minutes of critical care time was spent on this patient exclusive of other billable procedures. (PETER VILLAR DO) Dragon Disclaimer Dragon Disclaimer This electronic medical record was generated, in whole or in part, using a voice recognition dictation system. (SUNSHINE DODSON Jr., DO) Chest Tube Chest Tube Indication: Left-sided spontaneous pneumothorax Consent: I obtained verbal consent from the patient for the procedure. Pre-Medication: She was premedicated with 2 mg of morphine as well as lidocaine. Procedure: The entire procedure was performed using sterile technique and equipment. The patient was placed in a semirecumbent position with the head of the bed at 30 degrees. Local anesthesia over the insertion site was given as 1% lidocaine, 5 mL on the left anterior axillary line. An incision was made at the same location. A Cook catheter with needle was inserted into the patient's chest wall and into the pleural space. A 10 Upper [place] tube was used and connected to a Heimlich valve. Initial output from the tube was a small amount of air. The tube was sutured in place and the site was covered with an occlusive dressing. Breath sounds after the procedure were told decreased bilaterally. A chest x-ray was obtained to evaluate placement. The patient tolerated the procedure well. Complications: None. (PETER VILLAR DO) Departure Departure: Impression: Primary Impression: Spontaneous pneumothorax Disposition: XFER [facility] Condition: STABLE Referrals: GABE PEARCE MD (PCP) SUNSHINE DODSON Jr., DO Oct 19, 2019 18:03 PETER VILLAR DO Oct 19, 2019 19:11
[2019-10-19 18:16] LABS: BASO # 0.1 x10^3/uL (0.0-0.2); BASO % 1 % (0-3); EOS # 0.3 x10^3/uL (0.0-0.7); EOS % 3 % (0-3); HEMATOCRIT 36.4 % (36.0-47.0); HEMOGLOBIN 11.2 g/dL (12.0-15.5); LYMPH # 2.8 x10^3/uL (1.0-4.8); LYMPH % 26 % (24-48); MEAN CORPUSCULAR HEMOGLOBIN 24 pg (25-35); MEAN CORPUSCULAR HGB CONC 31 g/dL (31-37); MEAN CORPUSCULAR VOLUME 77 fL (79-100); MONO # 1.3 x10^3/uL (0.0-1.1); MONO % 12 % (0-9); NEUT # 6.4 x10^3uL (1.8-7.7); NEUT % 59 % (31-73); PLATELET COUNT 406 x10^3/uL (140-400); RED BLOOD COUNT 4.74 x10^6/uL (3.50-5.40); RED CELL DISTRIBUTION WIDTH 14.4 % (11.5-14.5); WHITE BLOOD COUNT 10.9 x10^3/uL (4.0-11.0)
[2019-10-19 18:20] LABS: BGAS PH 7.34 (7.35-7.45)
[2019-10-19 18:29] LABS: ALBUMIN 3.7 g/dL (3.4-5.0); ALBUMIN/GLOBULIN RATIO 0.9 (1.0-1.7); CALCIUM 9.2 mg/dL (8.5-10.1); CREATININE 0.5 mg/dL (0.6-1.0); GFR 153.3; POTASSIUM 5.7 mmol/L (3.5-5.1); TOTAL BILIRUBIN 0.7 mg/dL (0.2-1.0)
--- NOTE | 2019-10-19 19:01 | RAD ---
Study: PORTABLE CHEST 1V Indication: Shortness of breath. COPD. Comparison: 05/31/2018 Findings: Prominent left pneumothorax involving approximately 50 percent left hemithoracic volume. There appears to be very mild rightward shift however this could also be related to slight patient rotation. No lobar infiltrate on the right. Pleuroparenchymal scarring. More localized areas of haziness involving the partially collapsed left lung are nonspecific given the presence of collapse. Impression: 1. Prominent left pneumothorax involving approximately 50 percent left hemithoracic volume. There appears to be very mild rightward mediastinal shift however the patient is slightly rotated which could contribute to this appearance. 2. Pleuroparenchymal scarring suggestive of underlying emphysema. The left lung is not well evaluated due to its partially collapsed state. No focal consolidation of the right lung. The ordering team was aware of this finding at the time of dictation. Electronically signed by: KAIT BROWNE MD (10/19/2019 6:57 PM) [facility]
[2019-10-19] MEDS ORDERED: MORPHINE SULFATE 2 MG/ML DISP.SYRIN. IV ONE (19:15)
[2019-10-19 22:04] VITALS: BP 146/100
--- NOTE | 2019-10-20 00:44 | RAD ---
CHEST AP ONLY History: Chest tube placement Comparison: Exam earlier the same day Findings: Single view of the chest is submitted. There is small caliber left chest tube now present although persistent large left pneumothorax. There is a partial coil of the small caliber chest tube near the exiting site of the chest wall. Cardiac silhouette is stable. There is some opacity of the partially collapsed left lung. Impression: 1. There is persistent large left pneumothorax, now small caliber left chest tube present. Electronically signed by: Mannie Moore MD (10/20/2019 12:41 AM) [facility]
--- NOTE | 2019-10-21 01:45 | EKG ---
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
== END 2019-10-19 22:20 | disposition short-term general hospital (02) ==
LOC: ER 17:26
DX: J93.83 Other pneumothorax (principal); N19 Unspecified kidney failure; J44.9 Chronic obstructive pulmonary disease, unspecified; M19.90 Unspecified osteoarthritis, unspecified site; Z99.81 Dependence on supplemental oxygen; Z88.1 Allergy status to other antibiotic agents
CPT/HCPCS: 32551; 36415; 36600; 71045; 80053; 82803; 83880; 84484; 85025; 93005; 94640; 94644; 96374; 96375; 99291; J2270; J2930; J7613; J7620

== ENCOUNTER 2020-01-14 08:26 | Emergency (ER) | payer OTHER ==
[~2020-01-14] VITALS: Ht 165.1 cm; Wt 77.0 kg
[2020-01-14] MEDS ORDERED: IV NORMAL SALINE 1,000ML 1,000 ML IV ONE (08:30)
[2020-01-14] MEDS ORDERED: DEXAMETHASONE SOD PHOS 4 MG/ML VIAL IVP ONE (08:30)
[2020-01-14] MEDS ORDERED: KETOROLAC 15 MG/ML VIAL. IVP ONE (08:40)
--- NOTE | 2020-01-14 08:49 | PHYS DOC ---
Past History Past Medical History: Arthritis, COPD, Pneumonia, Renal Failure Past Medical History Pneumothorax Past Surgical History: No Surgical History Past Surgical History Thoracostomy tube for previous pneumothorax Smoking: Quit Greater Than 1 Year Alcohol Use: None Drug Use: None Adult General Chief Complaint Chief Complaint: dizziness HPI HPI Patient is a 51-year-old female past medical history of COPD complicated by a pneumothorax that required thoracostomy tube placement approximately 6 weeks ago who presents today complaining of dizziness. She states that she noticed this morning she tried to get up from bed when she felt the room was "spinning". She was able to lay back down and eventually called EMS to be brought to the emergency department. Currently she denies any sort of dizziness, lightheadedness or vertiginous symptoms. She never syncopized or hit her head. She states that her symptoms were not made worse by movement. She denies any recent upper respiratory tract infections, rhinorrhea, or ear infections. Denies any focal weakness, numbness or paresthesias. Currently her only complaint is bilateral frontal headache described as dull ache. She states that this began earlier this morning as well is consistent with her previous headaches. It was not maximal in onset and she denies any fevers, chills, neck pain or stiffness. Also denies any chest pain, shortness breath, or palpitations. She is on 2 L O2 nasal cannula at home at baseline. Review of Systems Review of Systems Constitutional: Denies fever or chills Eyes: Denies eye pain or vision changes HENT: Denies nasal congestion or rhinorrhea Respiratory: Denies cough or shortness of breath Cardiovascular: Denies chest pain or palpitations GI: Denies nausea or vomiting Neurologic: Reports headache and dizziness. Denies focal weakness or sensory changes Complete systems were reviewed and found to be within normal limits, except as documented in this note. Allergies Allergies Allergies Coded Allergies Type Severity Reaction Last Updated Verified NKMA Allergy Unknown 05/23/18 Yes vancomycin Adverse Reaction Severe RENAL FAILURE 05/01/18 Yes Physical Exam Physical Exam Constitutional: Well developed, well nourished, no acute distress, non-toxic appearance. Patient sitting comfortably in bed with baseline O2 per nasal cannula HENT: Normocephalic, atraumatic, oropharynx dry Eyes: PERRL, EOMI, conjunctiva normal, no discharge, no nystagmus Neck: Normal range of motion, no tenderness, supple Cardiovascular: Heart rate normal, regular rhythm Lungs & Thorax: Diminished breath sounds bilaterally, no wheezing, rhonchi, or rales. Patient in no apparent respiratory distress Abdomen: Soft, no tenderness Skin: Warm, dry, no erythema, no rash Extremities: Radial pulses +2 over 4 bilaterally, no swelling, cyanosis, or clubbing Neurologic: Alert and oriented X 3, normal motor function, normal sensory function, no focal deficits noted, cranial nerves II through XII grossly intact bilaterally. No cerebellar ataxia or dysmetria Psychologic: Affect normal, judgment normal EKG EKG 0843: Normal sinus rhythm with a rate of 91. Normal axis. No Q waves. J point notching noted throughout most likely benign early repolarization. No evidence of acute ischemia. [] Radiology/Procedures Radiology/Procedures PROCEDURE: CHEST PA & LATERAL Chest radiograph 01/14/2020 8:29 AM INDICATION: Dyspnea COMPARISON: 10/19/2019, CT chest 04/27/2018 TECHNIQUE: Frontal and lateral views of the chest are provided. FINDINGS: The cardiomediastinal silhouette is within normal limits. Bilateral cylindrical bronchiectasis is noted predominantly involving the upper lobes. Volume loss is noted in the lungs bilaterally. Pulmonary emphysematous changes are noted. Interval resolution of left-sided pneumothorax. No new airspace consolidation is identified. There is retraction of the marci bilaterally. There may be increased left suprahilar opacity which could reflect prominent pulmonary vasculature or scarring. Findings appear relatively similar to the prior chest CT from 04/27/2018. IMPRESSION: COPD changes with areas of suspected bronchiectasis, most prominent in the upper lobes, without definite new airspace consolidation. Left upper postoperative changes are present. Findings may be associated with chronic recurrent infection (as may be seen in setting of COPD, inhalational disorders or cystic fibrosis) versus sequela of caseating or noncaseating granulomatous disease. Electronically signed by: Emmie Vicente MD (01/14/2020 9:31 AM) [id number] Course & Med Decision Making Course & Med Decision Making Pertinent Labs and Imaging studies reviewed. (See chart for details) Patient is a 51-year-old female who presents to the for evaluation of an episode of dizziness upon getting out of bed earlier this morning. Currently she is asymptomatic aside from a bilateral headache that seems consistent with her previous headaches. Of note she does have history of COPD and recently acquired some thoracostomy for resolution of the pneumothorax 6 weeks ago however today she is without shortness breath or respiratory distress and is currently with O2 Sats WNL on her baseline supplemental O2. On exam she is well-appearing with stable vital signs and a benign neurological exam. Plan to obtain basic labs, EKG, troponin, chest x-ray as well as orthostatic vital signs. We'll also begin fluids as well as analgesics for treatment of her headache. Chest x-ray obtained and negative for acute cardiopulmonary process. Chronic changes with COPD changes observed. CBC, BNP, CMP unremarkable aside from BUN of 32. Patient did appear clinically dry and was receiving IV fluids in the depar tment. Troponin negative. EKG without arrhythmia or acute ischemia. Patient unable to produce urine for urinalysis however she denies any urinary frequency or urgency, dysuria, hematuria, fever or chills. Discussed with patient that if she begins experiencing any these symptoms she follows up with primary care physician. Currently she feels clinically well without any dizziness this time. Patient is hemodynamically stable, clinically well appearing and in agreement for discharge home at this point. We'll provide prescription for steroids as well as Antivert for her symptoms of dizziness. Patient stable for discharge with outpatient follow-up with PCP. Discussed findings and plan with patient and family, who acknowledge understanding and agreement. Dragon Disclaimer Dragon Disclaimer This electronic medical record was generated, in whole or in part, using a voice recognition dictation system. Departure Departure: Impression: Primary Impression: Dizziness Disposition: 01 HOME, SELF-CARE Condition: STABLE Referrals: GABE PEARCE MD (PCP) Patient Instructions: Dizziness, [id number] Scripts Meclizine Hcl (MECLIZINE HCL) 25 Mg Tablet 1 TAB PO PRN TID PRN for DIZZINESS, #14 TAB Prov: JOSI MEJIA DO 01/14/20 NIHSS - ED NIH Stroke Scale: NIH Stroke Scale Response (Comments) Value Level of Consciousness: 0 Alert/Responsive 0 LOC Questions: 0 Answers both correctly 0 LOC Commands: 0 Performs both tasks 0 Best Gaze: 0 Normal 0 Visual: 0 No visual loss 0 Facial Palsy: 0 Normal, symmetrical 0 Motor - Left Arm 0 No drift 0 Motor - Right Arm 0 No drift 0 Motor - Left Leg 0 No drift 0 Motor: Right Leg 0 No drift 0 Limb Ataxia: 0 Absent 0 Sensory: 0 No loss 0 Best Language: 0 Normal 0 Dysathria: 0 Normal 0 Extinction and Inattention: 0 Normal 0 Total 0 MEJIA,JOSI Styles DO Jan 14, 2020 08:48
[2020-01-14] MEDS ORDERED: DEXAMETHASONE 4 MG TABLET ONE (08:56)
[2020-01-14 08:57] VITALS: BP 159/99
[2020-01-14] MEDS ORDERED: DEXAMETHASONE 4 MG TABLET PO ONE (09:00)
[2020-01-14] MEDS ORDERED: KETOROLAC 30 MG/ML VIAL. IM ONE (09:00)
[2020-01-14 09:11] LABS: BASO # 0.1 x10^3/uL (0.0-0.2); BASO % 1 % (0-3); EOS # 0.3 x10^3/uL (0.0-0.7); EOS % 4 % (0-3); HEMATOCRIT 37.3 % (36.0-47.0); HEMOGLOBIN 11.4 g/dL (12.0-15.5); LYMPH # 1.9 x10^3/uL (1.0-4.8); LYMPH % 26 % (24-48); MEAN CORPUSCULAR HEMOGLOBIN 24 pg (25-35); MEAN CORPUSCULAR HGB CONC 31 g/dL (31-37); MEAN CORPUSCULAR VOLUME 78 fL (79-100); MONO # 1.1 x10^3/uL (0.0-1.1); MONO % 15 % (0-9); NEUT % 54 % (31-73); PLATELET COUNT 386 x10^3/uL (140-400); RED BLOOD COUNT 4.79 x10^6/uL (3.50-5.40); RED CELL DISTRIBUTION WIDTH 14.2 % (11.5-14.5); WHITE BLOOD COUNT 7.4 x10^3/uL (4.0-11.0)
[2020-01-14 09:15] LABS: ANION GAP 5 (6-14); BLOOD UREA NITROGEN 19 mg/dL (7-20); BUN/CREATININE RATIO 32 (6-20); CARBON DIOXIDE 34 mmol/L (21-32); CHLORIDE 100 mmol/L (98-107); CREATININE 0.6 mg/dL (0.6-1.0); GFR 124.2; GLUCOSE 109 mg/dL (70-99); POTASSIUM 4.2 mmol/L (3.5-5.1); SODIUM 139 mmol/L (136-145)
[2020-01-14 09:31] LABS: ALBUMIN 3.5 g/dL (3.4-5.0); ALBUMIN/GLOBULIN RATIO 0.9 (1.0-1.7); ALK PHOS 51 U/L (46-116); ALT (SGPT) 19 U/L (14-59); AST (SGOT) 14 U/L (15-37); MAGNESIUM 1.9 mg/dL (1.8-2.4); TOTAL BILIRUBIN 0.2 mg/dL (0.2-1.0); TOTAL PROTEIN 7.3 g/dL (6.4-8.2)
--- NOTE | 2020-01-14 09:34 | RAD ---
Chest radiograph 01/14/2020 8:29 AM INDICATION: Dyspnea COMPARISON: 10/19/2019, CT chest 04/27/2018 TECHNIQUE: Frontal and lateral views of the chest are provided. FINDINGS: The cardiomediastinal silhouette is within normal limits. Bilateral cylindrical bronchiectasis is noted predominantly involving the upper lobes. Volume loss is noted in the lungs bilaterally. Pulmonary emphysematous changes are noted. Interval resolution of left-sided pneumothorax. No new airspace consolidation is identified. There is retraction of the marci bilaterally. There may be increased left suprahilar opacity which could reflect prominent pulmonary vasculature or scarring. Findings appear relatively similar to the prior chest CT from 04/27/2018. IMPRESSION: COPD changes with areas of suspected bronchiectasis, most prominent in the upper lobes, without definite new airspace consolidation. Left upper postoperative changes are present. Findings may be associated with chronic recurrent infection (as may be seen in setting of COPD, inhalational disorders or cystic fibrosis) versus sequela of caseating or noncaseating granulomatous disease. Electronically signed by: Emmie Vicente MD (01/14/2020 9:31 AM) [id number]
[2020-01-14 10:48] LABS: PLT ESTIMATE ADEQUATE (ADEQUATE)
[2020-01-14 10:49] LABS: HYPOCHROMIA PRESENT
[2020-01-14] MEDS ORDERED: MECL-75 PO (10:56)
--- NOTE | 2020-01-14 13:33 | EKG ---
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
== END 2020-01-14 11:21 | disposition home or self-care (01) ==
LOC: ER 08:26
DX: R42 Dizziness and giddiness (principal); R51 Headache; M19.90 Unspecified osteoarthritis, unspecified site; J44.9 Chronic obstructive pulmonary disease, unspecified; Z87.891 Personal history of nicotine dependence; Z88.1 Allergy status to other antibiotic agents
CPT/HCPCS: 36415; 71046; 80053; 82553; 83735; 83880; 84484; 85025; 93005; 96372; 99285; J1885; J8540

== ENCOUNTER → 2020-07-25 | Outpatient (CLI) | payer OTHER ==
[~2020-07-25] MED LIST changes: +MECL-75 PO
--- NOTE | 2020-07-25 17:49 | RAD ---
DATE: 07/25/2020 2:54 PM EXAM: DIGITAL SCREEN BILAT W/CAD HISTORY: Screening . Technologist reports the patient is chronically short of breath and on oxygen. She had limited capacity to cooperate with positioning. COMPARISON: 01/28/2012, 03/23/2019 and left diagnostic mammogram of 10/24/2010. Bilateral full field craniocaudal and mediolateral oblique images were obtained using digital technique. This study was interpreted with the benefit of Computerized Aided Detection (CAD). FINDINGS: Breast Density: SCATTERED The breast parenchyma shows scattered fibroglandular densities. Breast parenchyma level B No suspicious masses, microcalcifications or architectural distortion is present to suggest malignancy in either breast. The visualized axillae are unremarkable. IMPRESSION: No mammographic evidence of malignancy. BI-RADS CATEGORY: 1 NEGATIVE RECOMMENDED FOLLOW-UP: 12M 12 MONTH FOLLOW-UP Annual screening mammography is recommended, unless clinically indicated sooner based on symptoms or change in physical exam. PQRS compliance statement: Patient information was entered into a reminder system with a target due date for the next mammogram. Mammography is a sensitive method for finding small breast cancers, but it does not detect them all and is not a substitute for careful clinical examination. A negative mammogram does not negate a clinically suspicious finding and should not result in delay in biopsying a clinically suspicious abnormality. "Our facility is accredited by the [employer] Mammography Program."
== END | disposition home or self-care (01) ==
LOC: MAMMO 14:52
PROVIDERS: ATTEND Family Medicine
DX: Z12.31 Encounter for screening mammogram for malignant neoplasm of breast (principal)
CPT/HCPCS: 77067

== ENCOUNTER 2020-09-27 08:52 | Emergency (ER) | payer OTHER ==
[~2020-09-27] VITALS: Ht 165.1 cm; Wt 77.0 kg
[2020-09-27] MEDS ORDERED: IPRATRPIUM/ALBUTEROL 0.5/2.5MG 3 ML NEBU. ONE (08:59)
[2020-09-27] MEDS ORDERED: DEXAMETHASONE SOD PHOS 10 MG/ML VIAL. IV ONE (09:15)
[2020-09-27] MEDS: IPRATRPIUM/ALBUTEROL 0.5/2.5MG 3 ML NEBU. NEB PRN ×2 (09:20→09:22)
--- NOTE | 2020-09-27 09:25 | RAD ---
AP chest. HISTORY: Short of breath AP view was taken of the chest. There is a large right pneumothorax. There is mild shift of the midline to the left. There are chronic bilateral infiltrates or fibrosis. Heart is normal in size. IMPRESSION: 1. Large right pneumothorax. FOR INTERNAL CODING PURPOSES Critical result: Findings discussed with the emergency room at 09/27/2020 9:21 AM. RESULT CODE: (C) Electronically signed by: Sancho Houser MD (09/27/2020 9:22 AM) [id number]
[2020-09-27 09:44] LABS: BASO # 0.2 x10^3/uL (0.0-0.2); BASO % 1 % (0-3); EOS # 0.3 x10^3/uL (0.0-0.7); EOS % 3 % (0-3); HEMATOCRIT 35.7 % (36.0-47.0); HEMOGLOBIN 10.6 g/dL (12.0-15.5); LYMPH # 4.6 x10^3/uL (1.0-4.8); LYMPH % 39 % (24-48); MEAN CORPUSCULAR HEMOGLOBIN 23 pg (25-35); MEAN CORPUSCULAR HGB CONC 30 g/dL (31-37); MEAN CORPUSCULAR VOLUME 78 fL (79-100); MONO # 1.8 x10^3/uL (0.0-1.1); MONO % 15 % (0-9); NEUT # 4.9 x10^3uL (1.8-7.7); NEUT % 42 % (31-73); PLATELET COUNT 433 x10^3/uL (140-400); RED BLOOD COUNT 4.56 x10^6/uL (3.50-5.40); RED CELL DISTRIBUTION WIDTH 14.5 % (11.5-14.5); WHITE BLOOD COUNT 11.9 x10^3/uL (4.0-11.0)
[2020-09-27] MEDS ORDERED: fentaNYL PF 250 MCG/5 ML VIAL IV ONE ×3 (09:45)
[2020-09-27] MEDS ORDERED: LIDOCAINE 2% 20 ML VIAL. IJ ONE (09:45)
[2020-09-27 09:56] LABS: CALCIUM 8.7 mg/dL (8.5-10.1); CREATININE 0.6 mg/dL (0.6-1.0); GFR 123.8; POTASSIUM 4.3 mmol/L (3.5-5.1)
--- NOTE | 2020-09-27 09:59 | RAD ---
EXAM: CT Chest without IV contrast INDICATION: soa, large right pneumothorax TECHNIQUE: Multi-detector row CT images were acquired from the thoracic inlet through the upper abdomen without the use of IV contrast. Sagittal and coronal images were acquired from the transaxial data. All CT scans performed at this facility utilize dose optimization techniques as appropriate to the exam, including the following: Automated exposure control and adjustment of the mA and/or KV according to patient size (this includes techniques or standardized protocols for targeted exams where dose is indication/reason for exam). COMPARISON: Chest x-ray from earlier same day at 09/27/2020, 8:25 AM FINDINGS: Respiratory motion artifact degrades detail. The absence of IV contrast limits evaluation of soft tissue pathology. CARDIOVASCULAR: Mild flattening of the right atrial free wall is present. No cardiomegaly or pericardial effusion. No evidence of intramural hematoma or thoracic aortic aneurysm. MEDIASTINUM & KAY: There is mild leftward mediastinal shift. No masses identified. No bulky adenopathy is present. LUNGS: Lungs show bilateral central predominant cystic bronchiectasis with numerous thick-walled cysts. PLEURAL SPACE: Large right pneumothorax is present. There are some septations/adhesions of the right middle lobe to the parietal pleura. No significant blebs. OSSEOUS & SOFT TISSUE: Unremarkable ABDOMEN: The visualized portions of the upper abdomen are unremarkable. IMPRESSION: Large right tension pneumothorax superimposed on underlying chronic lung disease with bronchiectasis, likely chronic bronchitis. FOR INTERNAL CODING PURPOSES Critical result: Findings discussed with NEIDA CHRISTIANSON at 09/27/2020 9:45 AM. RESULT CODE: (C) Electronically signed by: Herbert Jin MD (09/27/2020 9:56 AM) [id number]
[2020-09-27 10:08] LABS: ALBUMIN 3.3 g/dL (3.4-5.0); ALBUMIN/GLOBULIN RATIO 0.7 (1.0-1.7); TOTAL BILIRUBIN 0.3 mg/dL (0.2-1.0); TOTAL PROTEIN 7.9 g/dL (6.4-8.2)
--- NOTE | 2020-09-27 10:23 | PHYS DOC ---
Past History Past Medical History: Arthritis, COPD, Pneumonia, Renal Failure Past Surgical History: Other Additional Past Surgical Histo: chest tube placement for pneumothorax 10/2019 Smoking: Quit Greater Than 1 Year Alcohol Use: None Drug Use: None General Adult EDM: Chief Complaint: SHORTNESS OF BREATH HPI: HPI: 60-year-old female past medical history significant for COPD on 2 L nasal cannula, presents to the ED with complaints of progressive, worsening shortness of breath, that started last night. Upon ED arrival is tachypneic and hypoxic. Chest x-ray shows moderate to large spontaneous pneumothorax with tension physiology. Patient reports she has had a pneumothorax on the right side before with a chest tube placed. Review of Systems: Review of Systems: Constitutional: Denies fever or chills Eyes: Denies change in visual acuity HENT: Denies nasal congestion or sore throat Respiratory: Denies hemoptysis Cardiovascular: Denies chest pain or edema or syncope GI: Denies abdominal pain, nausea, vomiting, bloody stools or diarrhea : Denies dysuria Musculoskeletal: Denies back pain or joint pain Integument: Denies rash Neurologic: Denies headache, focal weakness or sensory changes Endocrine: Denies polyuria or polydipsia Lymphatic: Denies swollen glands Psychiatric: Denies depression or anxiety Current Medications: Current Meds: Current Medications Medications (Trade) Dose Ordered Sig/Maxwell Start Time Stop Time Status Last Admin Dose Admin Albuterol/ Ipratropium (Duoneb) 3 ml PRN TID PRN 09/27/20 09:15 09/27/20 09:22 3 ML Dexamethasone Sodium Phosphate (Decadron) 10 mg 1X ONCE 09/27/20 09:15 09/27/20 09:16 DC 09/27/20 09:20 10 MG Fentanyl Citrate (Fentanyl 2ml Vial) 100 mcg STK-MED ONCE 09/27/20 09:42 09/27/20 09:42 DC Fentanyl Citrate (Fentanyl 5ml Vial) 25 mcg 1X ONCE 09/27/20 09:45 09/27/20 09:49 DC Lidocaine HCl 20 ml 1X ONCE 09/27/20 09:45 09/27/20 09:47 DC Allergies: Allergies: Allergies Coded Allergies Type Severity Reaction Last Updated Verified vancomycin Adverse Reaction Severe RENAL FAILURE 05/01/18 Yes Physical Exam: PE: Constitutional: Well developed, well nourished, no acute distress, non-toxic appearance. [] HENT: Normocephalic, atraumatic, bilateral external ears normal, oropharynx moist, no oral exudates, nose normal. [] Eyes: PERRLA, EOMI, conjunctiva normal, no discharge. [] Neck: Normal range of motion, no tenderness, supple, no stridor. [] Cardiovascular:Heart rate regular rhythm, no murmur [] Lungs & Thorax: Bilateral breath sounds clear to auscultation [] Abdomen: Bowel sounds normal, soft, no tenderness, no masses, no pulsatile masses. [] Skin: Warm, dry, no erythema, no rash. [] Back: No tenderness, no CVA tenderness. [] Extremities: No tenderness, no cyanosis, no clubbing, ROM intact, no edema. [] Neurologic: Alert and oriented X 3, normal motor function, normal sensory function, no focal deficits noted. [] Psychologic: Affect normal, judgement normal, mood normal. [] Current Patient Data: Labs: Laboratory Tests Test 09/27/20 09:17 White Blood Count 11.9 x10^3/uL (4.0-11.0) H Red Blood Count 4.56 x10^6/uL (3.50-5.40) Hemoglobin 10.6 g/dL (12.0-15.5) L Hematocrit 35.7 % (36.0-47.0) L Mean Corpuscular Volume 78 fL (79-100) L Mean Corpuscular Hemoglobin 23 pg (25-35) L Mean Corpuscular Hemoglobin Concent 30 g/dL (31-37) L Red Cell Distribution Width 14.5 % (11.5-14.5) Platelet Count 433 x10^3/uL (140-400) H Neutrophils (%) (Auto) 42 % (31-73) Lymphocytes (%) (Auto) 39 % (24-48) Monocytes (%) (Auto) 15 % (0-9) H Eosinophils (%) (Auto) 3 % (0-3) Basophils (%) (Auto) 1 % (0-3) Neutrophils # (Auto) 4.9 x10^3uL (1.8-7.7) Lymphocytes # (Auto) 4.6 x10^3/uL (1.0-4.8) Monocytes # (Auto) 1.8 x10^3/uL (0.0-1.1) H Eosinophils # (Auto) 0.3 x10^3/uL (0.0-0.7) Basophils # (Auto) 0.2 x10^3/uL (0.0-0.2) Platelet Estimate Pending Sodium Level 138 mmol/L (136-145) Potassium Level 4.3 mmol/L (3.5-5.1) Chloride Level 99 mmol/L (98-107) Carbon Dioxide Level 34 mmol/L (21-32) H Anion Gap 5 (6-14) L Blood Urea Nitrogen 16 mg/dL (7-20) Creatinine 0.6 mg/dL (0.6-1.0) Estimated GFR (Cockcroft-Gault) 123.8 BUN/Creatinine Ratio 27 (6-20) H Glucose Level 218 mg/dL (70-99) H Calcium Level 8.7 mg/dL (8.5-10.1) Total Bilirubin 0.3 mg/dL (0.2-1.0) Aspartate Amino Transferase (AST) 19 U/L (15-37) Alanine Aminotransferase (ALT) 24 U/L (14-59) Alkaline Phosphatase 56 U/L (46-116) Troponin I Quantitative < 0.017 ng/mL (0-0.055) MP-Qib-E-Type Natriuretic Peptide 78 pg/mL (0-124) Total Protein 7.9 g/dL (6.4-8.2) Albumin 3.3 g/dL (3.4-5.0) L Albumin/Globulin Ratio 0.7 (1.0-1.7) L Vital Signs: Vital Signs Date Time Temp Pulse Resp B/P (MAP) Pulse Ox O2 Delivery O2 Flow Rate FiO2 09/27/20 09:43 134 36 155/101 (119) 100 NonRebreather Mask 15.0 EKG: EKG: Sinus tachycardia 121 bpm with motion artifacts diffusely on EKG, no axis deviation, normal intervals, no obvious ST elevations or ST depressions Radiology/Procedures: Radiology/Procedures: []IMAGING REPORT Signed PATIENT: JOCELIN GALDAMEZ ACCOUNT: [id number] : 1960 LOCATION: ER AGE: 60 SEX: F EXAM STATUS: REG ER ORD. PHYSICIAN: DASIA CHRISTIANSON DO REASON: soa PROCEDURE: PORTABLE CHEST 1V AP chest. HISTORY: Short of breath AP view was taken of the chest. There is a large right pneumothorax. There is mild shift of the midline to the left. There are chronic bilateral infiltrates or fibrosis. Heart is normal in size. IMPRESSION: 1. Large right pneumothorax. FOR INTERNAL CODING PURPOSES Critical result: Findings discussed with the emergency room at 09/27/2020 9:21 AM. RESULT CODE: (C) Electronically signed by: Sancho Houser MD (09/27/2020 9:22 AM) [id number] DICTATED AND SIGNED BY: SANCHO HOUSER MD DATE: 09/27/20921 CC: GABE PEARCE MD; DASIA CHRISTIANSON DO ~ IMAGING REPORT Signed PATIENT: JOCELIN GALDAMEZ ACCOUNT: [id number] : 1960 LOCATION: ER AGE: 60 SEX: F EXAM STATUS: REG ER ORD. PHYSICIAN: DASIA CHRISTIANSON DO REASON: soa, large right pneumothorax PROCEDURE: CT CHEST WO CONTRAST EXAM: CT Chest without IV contrast INDICATION: soa, large right pneumothorax TECHNIQUE: Multi-detector row CT images were acquired from the thoracic inlet through the upper abdomen without the use of IV contrast. Sagittal and coronal images were acquired from the transaxial data. All CT scans performed at this facility utilize dose optimization techniques as appropriate to the exam, including the following: Automated exposure control and adjustment of the mA and/or KV according to patient size (this includes techniques or standardized protocols for targeted exams where dose is indication/reason for exam). COMPARISON: Chest x-ray from earlier same day at 09/27/2020, 8:25 AM FINDINGS: Respiratory motion artifact degrades detail. The absence of IV contrast limits evaluation of soft tissue pathology. CARDIOVASCULAR: Mild flattening of the right atrial free wall is present. No cardiomegaly or pericardial effusion. No evidence of intramural hematoma or thoracic aortic aneurysm. MEDIASTINUM & KAY: There is mild leftward mediastinal shift. No masses identified. No bulky adenopathy is present. LUNGS: Lungs show bilateral central predominant cystic bronchiectasis with numerous thick-walled cysts. PLEURAL SPACE: Large right pneumothorax is present. There are some septations/adhesions of the right middle lobe to the parietal pleura. No significant blebs. OSSEOUS & SOFT TISSUE: Unremarkable ABDOMEN: The visualized portions of the upper abdomen are unremarkable. IMPRESSION: Large right tension pneumothorax superimposed on underlying chronic lung disease with bronchiectasis, likely chronic bronchitis. FOR INTERNAL CODING PURPOSES Critical result: Findings discussed with DASIA CHRISTIANSON at 09/27/2020 9:45 AM. RESULT CODE: (C) IMAGING REPORT Signed PATIENT: JOCELIN GALDAMEZ ACCOUNT: [id number] : 1960 LOCATION: ER AGE: 60 SEX: F EXAM STATUS: REG ER ORD. PHYSICIAN: DASIA CHRISTIANSON DO REASON: s/p chest tube PROCEDURE: CHEST AP ONLY Single view chest INDICATION: Status post chest tube. COMPARISON: Chest x-ray 09/27/2020 at 8:[address] of same day. FINDINGS: Upright AP single view chest shows interval placement of a right-sided chest tube directed medially. There is been interval relief of right to left midline shift. There remains a small right apical pneumothorax still present. Postsurgical changes in the left lung apex are also noted, stable from prior, compatible previous lung biopsy or wedge resection. Coarse peribronchial lung markings are present, correlating with findings seen on CT. No pleural effusion. No acute or aggressive osseous lesions. The included upper abdomen reveals no additional unexpected findings. IMPRESSION: 1. Interval placement of a right chest tube with release of tension and residual small right apical pneumothorax. 2. Chronic lung disease. Differential considerations include chronic bronchitis, cystic fibrosis and chronic mycobacterium avium complex infection as differential considerations. Electronically signed by: Bebo Jin MD (09/27/2020 10:48 AM) [id number] DICTATED AND SIGNED BY: BEBO JIN MD DATE: 09/27/20 1048 CC: GABE PEARCE MD; DASIA CHRISTIANSON DO ~ Indication: Right spontaneous tension pneumothorax atraumatic Consent: Verbal consent obtained by patient, procedure was emergent given tension physiology Pre-Medication: Lidocaine and fentanyl Procedure: The patient was placed in a semirecumbent position with the head of the bed at 30 degrees. Right side. Local anesthesia over the insertion site with 1% lidocaine. An incision was made fourth or fifth intercostal space, anterior mid axillary line. A 10 Macedonian Cook catheter chest tube was placed (immediate release of air) and connected to suction. Initial output from the tube was 0. The tube was sutured in place and the site was covered with an occlusive dressing. All connections were banded. Breath sounds after the procedure were bilateral. A chest x-ray was obtained to evaluate placement-very small right apical pneumo. The patient tolerated the procedure . Complications: None, tachypnea resolved, hypoxia resolved. Heart Score: Risk Factors: Risk Factors: DM, Current or recent (<one month) smoker, HTN, HLP, family history of CAD, obesity. Risk Scores: Score 0 - 3: 2.5% MACE over next 6 weeks - Discharge Home Score 4 - 6: 20.3% MACE over next 6 weeks - Admit for Clinical Observation Score 7 - 10: 72.7% MACE over next 6 weeks - Early Invasive Strategies Course & Med Decision Making: Course & Med Decision Making Pertinent Labs and Imaging studies reviewed. (See chart for details) Concern for tachypnea and hypoxia in the setting of spontaneous atraumatic tension pneumothorax, almost full resolution with cook catheter. Treated for copd. Afebrile. Will transfer to [facility] for further medical management. Patient stable at time of transfer and agrees with this plan. I have spoken with the patient and/or caregivers. I have explained the patient's condition, diagnosis and treatment plan based on the information a vailable to me at this time. I have answered the patient's and/or caregivers questions and answered any concerns. The patient and/or caregivers have as good an understanding of the patient's diagnosis, condition and treatment plan as can be expected at this point. The patient has been stabilized within the capability of the emergency department. The patient will be transported for further care and management or will be moved to an observation or inpatient service. I have communicated with the staff or medical practitioner taking over this patient's care. Critical Care: Authorized and Performed by: Dasia Christianson DO Total critical care time: approximately 60 minutes Due to a high probability of clinically significant, life threatening deterioration, the patient required my highest level of preparedness to intervene emergently and I personally spent this critical care time directly and personally managing the patient. This critical care time included obtaining a history; examining the patient; pulse oximetry; ventilator management if necessary; ordering and review of studies; arranging urgent treatment with development of a management plan; evaluation of patient's response to treatment; frequent reassessment; discussion with patient/family; and, discussions with other providers. This critical care time was performed to assess and manage the high probability of imminent, life-threatening deterioration that could result in multi-organ failure. It was exclusive of separately billable procedures and treating other patients and teaching time. Please see MDM section and the rest of the note for further information on patient assessment and treatment. Maria Disclaimer: Maria Disclaimer: This electronic medical record was generated, in whole or in part, using a voice recognition dictation system. Departure Departure: Impression: Primary Impression: Spontaneous pneumothorax Additional Impression: COPD (chronic obstructive pulmonary disease) Disposition: 05 DC/TRF OTHER TYPE INSTITUTI (Transferred to [facility] accepted by Dr. Wylie) Admitting Physician: Massiel Wylie Condition: GUARDED Referrals: GABE PEARCE MD (PCP) DASIA CHRISTIANSON DO Sep 27, 2020 10:23
--- NOTE | 2020-09-27 10:51 | RAD ---
Single view chest INDICATION: Status post chest tube. COMPARISON: Chest x-ray 09/27/2020 at 8:[address] of same day. FINDINGS: Upright AP single view chest shows interval placement of a right-sided chest tube directed medially. There is been interval relief of right to left midline shift. There remains a small right apical pneumothorax still present. Postsurgical changes in the left lung apex are also noted, stable from prior, compatible previous lung biopsy or wedge resection. Coarse peribronchial lung markings are present, correlating with findings seen on CT. No pleural effusion. No acute or aggressive osseous lesions. The included upper abdomen reveals no additional unexpected findings. IMPRESSION: 1. Interval placement of a right chest tube with release of tension and residual small right apical pneumothorax. 2. Chronic lung disease. Differential considerations include chronic bronchitis, cystic fibrosis and chronic mycobacterium avium complex infection as differential considerations. Electronically signed by: Herbert Jin MD (09/27/2020 10:48 AM) [id number]
[2020-09-27] MEDS ORDERED: HYDROmorphone PF 1 MG/ML DISP.SYRIN ONE (12:02)
--- NOTE | 2020-09-27 12:02 | EKG ---
[address] [address] Test Date: 2020-09-27 Test Time: 09:05:36 Pat Name: JOCELIN GALDAMEZ Department: Room: Gender: F Chief Gauger: SRAVANI : 1960 Requested By: NEIDA CHRISTIANSON Order Number: [id number] Reading MD: Measurements Intervals [place] Rate: 121 P: 67 [place]: 110 QRS: 89 QRSD: 82 T: 60 QT: 282 QTc: 403 Interpretive Statements SINUS TACHYCARDIA R-S TRANSITION ZONE IN V LEADS DISPLACED TO THE LEFT OTHERWISE NORMAL ECG RI6.02 No previous ECG available for comparison
[2020-09-27 12:06] VITALS: BP 119/62
[2020-09-27] MEDS ORDERED: HYDROmorphone PF 1 MG/ML DISP.SYRIN IVP ONE (12:15)
[2020-09-27 14:51] LABS: % EOS 5 % (0-5); % LYMPHS 33 % (24-48); % MONOS 16 % (0-10); % SEGS 46 % (35-66); PLT ESTIMATE ADEQUATE (ADEQUATE)
[2020-09-27] MEDS ORDERED: HYDROmorphone PF 1 MG/ML DISP.SYRIN IV/SQ PRN (16:30)
[2020-09-27] MEDS ORDERED: ONDANSETRON PF 4 MG/2 ML VIAL. IVP ONE (16:30)
== END 2020-09-27 12:30 | disposition short-term general hospital (02) ==
LOC: ER 08:52
DX: J93.83 Other pneumothorax (principal); J44.9 Chronic obstructive pulmonary disease, unspecified; M19.90 Unspecified osteoarthritis, unspecified site; Z87.891 Personal history of nicotine dependence; N19 Unspecified kidney failure; Z88.1 Allergy status to other antibiotic agents
CPT/HCPCS: 32551; 36415; 71045; 71250; 80053; 83880; 84484; 85007; 85025; 93005; 94640; 96374; 96375; 99291; J1100; J1170; J2001; J3010

== ENCOUNTER 2021-04-16 13:27 | Inpatient (IN) | payer OTHER ==
[~2021-04-16] VITALS: Ht 165.1 cm; Wt 72.5 kg
[~2021-04-16 13:27] MED LIST changes: -MICO14CR TP; +MICO14CR3 TP; -VANC1VIA3 MC; +VANC1VIA34 MC
[2021-04-16] MEDS ORDERED: IPRATRPIUM/ALBUTEROL 0.5/2.5MG 3 ML NEBU. NEB ONE (14:00)
--- NOTE | 2021-04-16 14:04 | EKG ---
[address] [address] Test Date: 2021-04-16 Test Time: 13:39:51 Pat Name: JOCELIN GALDAMEZ Department: Room: Gender: F [employer] Worker: SRAVANI : 1960 Requested By: JOSI BUNCH Order Number: [id number] Reading MD: Measurements Intervals [place] Rate: 109 P: 90 VT: 122 QRS: 70 QRSD: 68 T: 64 QT: 312 QTc: 422 Interpretive Statements SINUS TACHYCARDIA OTHERWISE NORMAL ECG RI6.02 No previous ECG available for comparison
--- NOTE | 2021-04-16 14:16 | PHYS DOC ---
Past History Past Medical History: Arthritis, COPD, Pneumonia, Renal Failure (JSOI BUNCH APRN) Past Surgical History: Other Additional Past Surgical Histo: chest tube placement for pneumothorax 10/2019 (JOSI BUNCH APRN) Smoking: Quit Greater Than 1 Year Alcohol Use: None Drug Use: None (JOSI BUNCH APRN) Adult General Chief Complaint Chief Complaint: SHORTNESS OF BREATH HPI HPI Patient is a 60-year-old female who presents to the emergency department stating her primary care physician Dr. Pearce told her to come straight to the hospital to be admitted. Patient states she had been experiencing shortness of breath for the past week that was not getting better and went to see her primary care physician, had a chest x-ray performed with some lab work and was told she should come to the hospital for admission. Patient denies chest pain, abdominal pain, nausea, vomiting, diarrhea, denies headaches, denies fever or chills, states she had completed her COVID-19 immunization regimen. Patient has no allergies to medications. Patient denies any other physical complaints or physical concerns. (JOSI BUNCH APRN) Review of Systems Review of Systems 14 body systems of review of systems have been reviewed. See HPI for pertinent positives and negative responses, otherwise all other systems are negative, nonpertinent or noncontributory. (JOSI BUNCH APRN) Current Medications Current Medications Current Medications Medications (Trade) Dose Ordered Sig/Maxwell Start Time Stop Time Status Last Admin Dose Admin Albuterol/ Ipratropium (Duoneb) 3 ml 1X ONCE 04/16/21 14:00 04/16/21 14:02 DC (JOSI BUNCH APRN) Allergies Allergies Allergies Coded Allergies Type Severity Reaction Last Updated Verified vancomycin Adverse Reaction Severe RENAL FAILURE 05/01/18 Yes (JOSI BUNCH APRN) Physical Exam Physical Exam Constitutional: Well developed, well nourished, mild acute distress, non-toxic appearance. 60-year-old female in mild respiratory distress HENT: Normocephalic, atraumatic, bilateral external ears normal, oropharynx moist, no oral exudates, nose normal. Eyes: PERRLA, EOMI, conjunctiva normal, no discharge. Neck: Normal range of motion, no tenderness, supple, no stridor. Cardiovascular:Heart rate regular rhythm, no murmur, distal cap refill less than 2 seconds. Lungs & Thorax: Bilateral breath diminished lung throughout all lung ortiz, no respiratory wheezing appreciated. Abdomen: Bowel sounds normal, soft, no tenderness, no masses, no pulsatile masses. Skin: Warm, dry, no erythema, no rash. Back: No tenderness, no CVA tenderness. Extremities: No tenderness, no cyanosis, no clubbing, ROM intact, no edema. Neurologic: Alert and oriented X 3, normal motor function, normal sensory function, no focal deficits noted. Psychologic: Affect normal, judgement normal, mood normal. (JOSI BUNCH APRN) Current Patient Data Vital Signs Vital Signs Date Time Temp Pulse Resp B/P (MAP) Pulse Ox O2 Delivery O2 Flow Rate FiO2 04/16/21 13:33 95 Nasal Cannula 4.0 04/16/21 13:29 97.8 112 20 204/102 (136) (JOSI BUNCH APRN) EKG EKG EKG performed at 1339 by house respiratory therapy staff shows a sinus tachycardia with a heart rate of 109 bpm, no other ectopy appreciated, UT interval 0.122, QTc interval 0.422, no acute STEMI, no ACS, no acute ischemia appreciated, EKG interpreted by ED attending physician Dr. Villar. (JOSI BUNCH APRN) Radiology/Procedures Radiology/Procedures [] (JOSI BUNCH APRN) Heart Score C/O Chest Pain: No Risk Factors: Risk Factors: DM, Current or recent (<one month) smoker, HTN, HLP, family history of CAD, obesity. Risk Scores: Risk Factors: DM, Current or recent (<one month) smoker, HTN, HLP, family history of CAD, obesity. (JOSI BUNCH APRN) Course & Med Decision Making Course & Med Decision Making Pertinent Labs and Imaging studies reviewed. (See chart for details) 60-year-old female, vital signs reviewed, presents to the emergency department stating she was sent here by her physician Dr. Pearce to be admitted. Patient was in acute respiratory distress upon presentation to the ED, a DuoNeb treatment was ordered, troponin I, pro BNP, CBC, CMP, saline lock. Patient states she had an x-ray at her physician's office that showed concerning findings, will contact Dr. Pearce to review case. Contacted Dr. Pearce by phone who stated patient was supposed to be a direct admit, did not recommend any other imaging or medical treatment treatment, states he would like for her to be admitted to the [facility] for lung consolidation and shortness of breath that he diagnosed in his office today as he was given direct admission orders. Will admit patient to [facility], Dr. Pearce has assumed patient care at this time. Upon reevaluation of the patient, patient is in no obvious respiratory distress at this time, patient states she is feeling much better now. Discussed with patient she will be admitted to the hospital at [place], patient is amenable to this plan. (JOSI BUNCH APRN) Dragon Disclaimer Dragon Disclaimer This electronic medical record was generated, in whole or in part, using a voice recognition dictation system. (JOSI BUNCH APRN) Attending Co-Sign The patient was seen and interviewed as well as examined at the bedside. The chart was reviewed. The case was discussed. Agree with the plan of care. (PETER VILLAR DO) Departure Departure: Impression: Primary Impression: Lung consolidation Additional Impression: Shortness of breath Disposition: ADMITTED INPATIENT Admitting Physician: Gabe Pearce (Admit to [facility] to Dr. Pearce) (JOSI BUNCH APRN) Condition: GUARDED Referrals: GABE PEARCE MD (PCP) Problem Qualifiers JOSI BUNCH APRN Apr 16, 2021 14:16 PETER VILLAR DO Apr 19, 2021 03:54
[2021-04-16 14:21] LABS: BASO # 0.1 x10^3/uL (0.0-0.2); BASO % 1 % (0-3); EOS % 0 % (0-3); HEMATOCRIT 37.3 % (36.0-47.0); HEMOGLOBIN 11.5 g/dL (12.0-15.5); LYMPH # 1.2 x10^3/uL (1.0-4.8); LYMPH % 8 % (24-48); MEAN CORPUSCULAR HEMOGLOBIN 24 pg (25-35); MEAN CORPUSCULAR HGB CONC 31 g/dL (31-37); MEAN CORPUSCULAR VOLUME 77 fL (79-100); MONO # 0.9 x10^3/uL (0.0-1.1); MONO % 7 % (0-9); NEUT # 12.1 x10^3uL (1.8-7.7); NEUT % 84 % (31-73); PLATELET COUNT 427 x10^3/uL (140-400); RED BLOOD COUNT 4.83 x10^6/uL (3.50-5.40); WHITE BLOOD COUNT 14.4 x10^3/uL (4.0-11.0)
[2021-04-16 14:31] LABS: POTASSIUM ISTAT 4.4 mmol/L (3.5-5.0)
[2021-04-16 15:06] LABS: CALCIUM 9.2 mg/dL (8.5-10.1); CREATININE 0.8 mg/dL (0.6-1.0); GFR 88.8; POTASSIUM 4.9 mmol/L (3.5-5.1)
[2021-04-16 15:18] LABS: ALBUMIN 3.3 g/dL (3.4-5.0); ALBUMIN/GLOBULIN RATIO 0.8 (1.0-1.7); TOTAL BILIRUBIN 0.3 mg/dL (0.2-1.0); TOTAL PROTEIN 7.5 g/dL (6.4-8.2)
[2021-04-16] MEDS ORDERED: AZITHROMYCIN 250 MG TABLET. PO ONE (15:30)
[2021-04-16] MEDS ORDERED: NIFEdipine 10 MG CAPSULE PO ONE (15:30)
[2021-04-16] MEDS: IPRATRPIUM/ALBUTEROL 0.5/2.5MG 3 ML NEBU. NEB SCH ×2 (15:50→19:09)
--- NOTE | 2021-04-16 16:13 | NUR ---
admission note Pt admitted to room 115 via EMS at 1600 for COPD.
[2021-04-16 16:14] VITALS: BP 118/63
[2021-04-16] MEDS: methylPREDNISolone SOD SUCC PF 40 MG/ML VIAL. IV SCH ×2 (16:42→20:22)
[2021-04-16] MEDS ORDERED: BUDE10.2 IH (17:09)
[2021-04-16] MEDS ORDERED: PRED-220 PO (17:09)
[2021-04-16] MEDS ORDERED: ALBU2.5V8 IH (17:09)
[2021-04-16] MEDS ORDERED: BUDE0.5A11 IH (17:09)
[2021-04-16] MEDS ORDERED: DOXY100T PO (17:09)
[2021-04-16] MEDS ORDERED: FLUT1BLS3 IH (17:09)
--- NOTE | 2021-04-16 17:32 | RAD ---
EXAMINATION: CT Chest Without IV contrast. INDICATION:60 years, Female, shortness of breath, sarcoidosis. COMPARISON: 09/27/2020. TECHNIQUE: Spiral CT was obtained from the jugular notch through the posterior costophrenic recess. S agittal and coronal reformats were obtained. Exposure: One or more of the following individualized dose reduction techniques were utilized for thi s examination: 1. Automated exposure control 2. Adjustment of the mA and/or kV according to patient size 3. Use of iterative reconstruction technique. FINDINGS: LUNGS/PLEURA: Unchanged bilateral upper lobes predominant tractional bronchiectasis with fibrotic fernando nges. Mild to moderate pulmonary emphysema. Tree-in-bud nodular opacities in subpleural right lower l obe. Subsegmental atelectasis versus scarring in the right middle lobe. Bilateral lower lobes endobro nchial debris. No focal consolidation. No pleural effusion or pneumothorax. No discrete suspicious pu lmonary nodule. MEDIASTINUM: Similar nonspecific nonenlarged mediastinal lymph nodes with the largest in the paratrac heal region measures 0.9 cm, likely reactive. Evaluation of marci is limited due to lack of IV contras t. The thoracic aorta and pulmonary arteries are normal in caliber. The heart is normal in size. No p ericardial effusion. No detectable calcified coronary atherosclerosis. The visualized thyroid and the esophagus are unremarkable. AXILLA/SOFT TISSUE: No supraclavicular or axillary adenopathy. Unchanged 1.0 cm soft tissue nodule in the left breast. UPPER ABDOMEN: The visualized upper abdomen appears unremarkable, within limitation of noncontrast ex am,. BONES: No evidence of acute fractures or aggressive osseous lesions. IMPRESSION: 1. Similar upper lobes predominant tractional bronchiectasis with fibrotic changes on a background of mild to moderate pulmonary emphysema. 2. Tree-in-bud nodular opacities in the right lower lobe likely reflecting infectious/inflammatory br onchiolitis. 3. No focal consolidation, pleural effusion or pneumothorax. Electronically signed by: Baltazar Diaz MD (04/16/2021 5:29 PM) [id number]
[2021-04-16] MEDS ORDERED: ALBUTEROL SULFATE 2.5 MG/3 ML NEBU. IH PRN (17:45)
[2021-04-16] MEDS ORDERED: MECLIZINE 12.5 MG TABLET. PO PRN (18:45)
[2021-04-16] MEDS ORDERED: BUDESONIDE 0.5 MG/2 ML NEBU ONE (19:04)
[2021-04-16] MEDS: BUDESONIDE 0.5 MG/2 ML NEBU IH SCH (19:09)
[2021-04-16 20:20] VITALS: BP 120/78
[2021-04-16] MEDS ORDERED: MICONAZOLE NITRATE 2% TOPICAL CREAM 28GM TUBE. TP SCH (21:00)
[2021-04-16] MEDS ORDERED: NON FORMULARY ITEM (Budesonide/Formoterol Fumarate (Symbicort 160-4.5 Mcg Inhaler) 2 PUFF) IH SCH (21:00)
[2021-04-16] MEDS ORDERED: ALBUTEROL SULFATE 2.5 MG/3 ML NEBU. INH SCH (21:00)
[2021-04-16] MEDS: azaTHIOprine 50 MG TABLET PO SCH (21:23)
[2021-04-16] MEDS: NIFEdipine 10 MG CAPSULE PO SCH (22:00)
[2021-04-16 22:45] VITALS: BP 113/73
[2021-04-17] MEDS: HYDROcodone/APAP 7.5/325MG 1 TAB TABLET PO PRN ×2 (03:21→14:00)
[2021-04-17] MEDS: NIFEdipine 10 MG CAPSULE PO SCH ×3 (06:00→22:00)
[2021-04-17 06:10] VITALS: BP 122/77
[2021-04-17] MEDS: IPRATRPIUM/ALBUTEROL 0.5/2.5MG 3 ML NEBU. NEB SCH ×4 (06:11→21:05)
[2021-04-17] MEDS: methylPREDNISolone SOD SUCC PF 40 MG/ML VIAL. IV SCH ×3 (08:18→20:28)
[2021-04-17] MEDS: azaTHIOprine 50 MG TABLET PO SCH ×2 (09:00→21:00)
[2021-04-17] MEDS ORDERED: NON FORMULARY ITEM (Tiotropium Bromide (Spiriva) 1 CAP) IH SCH (09:00)
[2021-04-17] MEDS: ROFLUMILAST 500 MCG TABLET PO SCH (09:00)
[2021-04-17] MEDS: BUDESONIDE 0.5 MG/2 ML NEBU IH SCH ×2 (09:16→21:05)
[2021-04-17] MEDS ORDERED: ZOLPIDEM 5 MG TABLET. PO PRN (10:00)
[2021-04-17] MEDS: DOXYCYCLINE HYCLATE 100 MG TABLET PO SCH ×2 (11:18→20:28)
[2021-04-17] MEDS: BACLOFEN 10 MG TABLET PO SCH ×2 (11:18→20:28)
[2021-04-17 13:52] VITALS: BP 146/88
[2021-04-17 15:50] VITALS: BP 121/77
[2021-04-17 19:49] VITALS: BP 117/71
[2021-04-17] MEDS: LACTOBACILLUS RHAMNOSUS GG 1 CAPSULE. PO SCH (20:28)
[2021-04-17] MEDS ORDERED: BACLOFEN 10 MG TABLET PO SCH (21:00)
[2021-04-17 23:31] VITALS: BP 107/68
[2021-04-18 05:42] VITALS: BP 133/72
--- NOTE | 2021-04-18 05:59 | PN ---
SUBJECTIVE: This is a pleasant 60-year-old female with history of sarcoidosis, with increased shortness of breath, gasping for air as she was in the office. She was having labored breathing and as a result of this, the patient was admitted to the hospital where she was using accessory muscles and the like. The patient has been placed on steroids, aggressive pulmonary toilet. It appears that the patient may have even some type of a nodular tree-bud opacities of the right lower lobe ____ bronchiolitis or infectious pneumonitis developing. She is on IV antibiotic therapy. OBJECTIVE: VITAL SIGNS: Blood pressure 120/70, respiratory rate 18, pulse 98, afebrile, 2 liters at 95%. GENERAL: The patient still is in shortness of breath, cannot move, marked dyspnea about 10 feet. The patient is alert and oriented otherwise. HEENT: The patient's head was atraumatic, normocephalic. Eyes: PERRLA. LUNGS: Diminished throughout, poor movement of air, but somewhat better than they were yesterday. CARDIOVASCULAR: Regular sinus rhythm, somewhat tachy. ABDOMEN: Soft, nontender. EXTREMITIES: Without clubbing, cyanosis, nor edema. NEUROLOGIC: The patient was alert and oriented x3. The patient will be continued to be monitored on her steroids, IV antibiotic therapy and make further evaluation on her as indicated. IMPRESSION: 1. Acute exacerbation of chronic obstructive pulmonary disease with an infectious process and possible pneumonitis. 2. Bronchiolitis. 3. Sarcoidosis. 4. Acute on top of chronic respiratory failure, on chronic oxygen and patient continued to be monitored carefully on these instruments as well. She also has chronic anemia. She had an elevated white count of 14,000. The patient also has moderate protein malnutrition. Continue to monitor ____ respiratory effort as indicated above. ZORAN/MITZI/ALEXANDER DR: Michelle TID: [id number]
[2021-04-18] MEDS: NIFEdipine 10 MG CAPSULE PO SCH ×3 (06:00→22:00)
[2021-04-18] MEDS: ROFLUMILAST 500 MCG TABLET PO SCH (09:00)
[2021-04-18] MEDS: BACLOFEN 10 MG TABLET PO SCH ×2 (09:21→20:26)
[2021-04-18] MEDS: methylPREDNISolone SOD SUCC PF 40 MG/ML VIAL. IV SCH ×2 (09:21→20:26)
[2021-04-18] MEDS: LACTOBACILLUS RHAMNOSUS GG 1 CAPSULE. PO SCH ×2 (09:21→20:26)
[2021-04-18] MEDS: azaTHIOprine 50 MG TABLET PO SCH ×2 (09:22→21:27)
[2021-04-18] MEDS: DOXYCYCLINE HYCLATE 100 MG TABLET PO SCH ×2 (09:22→20:26)
[2021-04-18 09:47] LABS: BASO % 0 % (0-3); EOS % 0 % (0-3); HEMATOCRIT 35.3 % (36.0-47.0); HEMOGLOBIN 10.5 g/dL (12.0-15.5); LYMPH # 1.1 x10^3/uL (1.0-4.8); LYMPH % 6 % (24-48); MEAN CORPUSCULAR HEMOGLOBIN 23 pg (25-35); MEAN CORPUSCULAR HGB CONC 30 g/dL (31-37); MEAN CORPUSCULAR VOLUME 78 fL (79-100); MONO # 1.4 x10^3/uL (0.0-1.1); MONO % 7 % (0-9); NEUT # 17.2 x10^3uL (1.8-7.7); NEUT % 87 % (31-73); PLATELET COUNT 392 x10^3/uL (140-400); RED CELL DISTRIBUTION WIDTH 14.4 % (11.5-14.5); WHITE BLOOD COUNT 19.8 x10^3/uL (4.0-11.0)
[2021-04-18 09:52] LABS: CALCIUM 9.3 mg/dL (8.5-10.1); GFR 68.7; POTASSIUM 4.4 mmol/L (3.5-5.1)
[2021-04-18] MEDS: BUDESONIDE 0.5 MG/2 ML NEBU IH SCH ×2 (09:58→21:27)
[2021-04-18] MEDS: IPRATRPIUM/ALBUTEROL 0.5/2.5MG 3 ML NEBU. NEB SCH ×4 (09:58→21:27)
--- NOTE | 2021-04-18 11:26 | NUR ---
Nursing note Pt is experiencing shortness of breath at rest. During this shift after breakfast pt was giving self bed bath because of her concerns for her own safety getting the in the shower after incident yesterday. during pts bed bath pt heart rate increased from 86 range to 133 this nurse went to check on pt and pt reported shortness of breath and this nurse observed increased respiration rate. This nurse went to retrieve pulse oximeter and when returning clients heart rate was back down to 95 , pt reported shortness of breath had resolved and pt o2 sat was 95%. In regards to shower incident that pt reported to this nurse that last night when pt attempted to get in the shower she felt very dizzy and lightheaded and she felt increasingly unsteady even with oxygen on. the pt reports that she shelf unsafe to continue to try to shower.
[2021-04-18 11:37] VITALS: BP 131/74
[2021-04-18 14:45] VITALS: BP 133/93
--- NOTE | 2021-04-18 14:50 | RAD ---
EXAM: CHEST 2 VIEWS. HISTORY: Shortness of breath. COMPARISON: 09/27/2020, 04/16/2021. FINDINGS: Frontal and lateral views of the chest are obtained. Interstitial opacities in both upper lobes correspond with upper lobe predominant bronchiectasis on p rior CT. There are lesser similar positional change bases corresponding with lesser bronchiectasis an d mild tree-in-bud infiltrates. There is mild hyperinflation. There are no acute infiltrates. A lung suture line is noted in the left apex. There is no pneumothorax or pleural effusion. The heart is not enlarged. IMPRESSION: 1. Upper lobe predominant bronchiectasis. Correlate for cystic fibrosis or other causes of bronchiect asis. Electronically signed by: Dalila Foote MD (04/18/2021 2:48 PM) [id number]
[2021-04-18 20:20] VITALS: BP 132/81
[2021-04-18] MEDS: HYDROcodone/APAP 7.5/325MG 1 TAB TABLET PO PRN (23:34)
--- NOTE | 2021-04-19 02:24 | PN ---
SUBJECTIVE: A 60-year-old female with history of sarcoid and acute on top of chronic respiratory failure. The patient has been having bouts of extreme shortness of breath, more so than usual with minimal exertion. The patient has become somewhat diaphoretic with these episodes until she is able to sit down and rest. The patient is not eating very well. We were trying to encourage her to eat. She is obviously on continuous oxygen at 2 liters at 95. OBJECTIVE: VITAL SIGNS: Blood pressure ____/74, respiratory rate 20, pulse 93, afebrile. GENERAL: The patient is alert and oriented. LUNGS: Diminished, poor movement of air throughout with expiratory wheezes noted. CARDIOVASCULAR: Regular sinus rhythm. She gets also tachycardic with a rate up to 130 when she has these episodes of shortness of breath. LABORATORY DATA: The patient otherwise white count did go up to 19,000. She is on steroids. Otherwise, hemoglobin study about 10.5, no left shift noted. Chemistries, 147, 4.4, BUN and creatinine of 30 and 1. Otherwise, the patient says she is feeling better when she sits down. IMPRESSION: Acute on top of chronic exacerbation of chronic obstructive pulmonary disease with bronchitis, acute on top of chronic respiratory failure with hypoxemia, hyperglycemia, leukocytosis, moderate protein malnutrition. PLAN: Continue with aggressive therapy, may need to stay on steroids for now. She still does not have much in the way of improvement as yet. ZORAN/ALMITA/ZEFERINO DR: ZORAN/garland TID: [id number]
[2021-04-19] MEDS: IPRATRPIUM/ALBUTEROL 0.5/2.5MG 3 ML NEBU. NEB SCH ×4 (05:28→20:23)
[2021-04-19 05:49] VITALS: BP 158/99
[2021-04-19] MEDS: NIFEdipine 10 MG CAPSULE PO SCH ×3 (06:25→20:26)
[2021-04-19] MEDS: methylPREDNISolone SOD SUCC PF 40 MG/ML VIAL. IV SCH ×2 (08:29→20:25)
[2021-04-19] MEDS: LACTOBACILLUS RHAMNOSUS GG 1 CAPSULE. PO SCH ×2 (08:30→20:25)
[2021-04-19] MEDS: DOXYCYCLINE HYCLATE 100 MG TABLET PO SCH ×2 (08:30→20:26)
[2021-04-19] MEDS: BACLOFEN 10 MG TABLET PO SCH ×2 (08:30→20:26)
[2021-04-19] MEDS: ROFLUMILAST 500 MCG TABLET PO SCH (08:31)
[2021-04-19] MEDS: azaTHIOprine 50 MG TABLET PO SCH ×2 (08:32→20:50)
[2021-04-19 10:47] VITALS: BP 114/70
[2021-04-19] MEDS: BUDESONIDE 0.5 MG/2 ML NEBU IH SCH ×2 (10:57→20:23)
--- NOTE | 2021-04-19 14:41 | NUR ---
NURSING NOTE PT IN BED THIS AM UPON ASSESSMENT AND MEDICATION ADMINISTRATION. PT A&O, CALM AND COOPERATIVE. PT STATES SHE WEARS OXYGEN AT HOME. PER DR PEARCE, PT IS TO STAY ONE MORE DAY, THEN CAN DISCHARGE TOMORROW. PT IS INDEPENDENT WITH HER MEALS. STAND BY ASSIST TO RESTROOM WITH OXYGEN TANK. DENIES PAIN. GARY BETTS.
[2021-04-19 15:40] VITALS: BP 108/67
[2021-04-19 19:34] VITALS: BP 135/77
[2021-04-19 22:58] VITALS: BP 125/66
[2021-04-20] MEDS: HYDROcodone/APAP 7.5/325MG 1 TAB TABLET PO PRN (01:15)
--- NOTE | 2021-04-20 05:12 | PN ---
SUBJECTIVE: History of sarcoidosis, ____ respiratory failure. The patient is resting fairly comfortably, making a little bit of progress, but still extremely short of breath with minimal exertion, requiring oxygen even for sitting in bed. OBJECTIVE: VITAL SIGNS: Blood pressure is 110/70, respiratory rate ____, pulse 80, afebrile, 2 liters at 98% ____. She is improving gradually on that. The patient's; otherwise, labs are basically stable. IMPRESSION: Acute on top of chronic respiratory failure, acute exacerbation of chronic obstructive pulmonary disease, acute bronchitis, sarcoid. PLAN: We will continue to monitor patient accordingly. Make further evaluation on her as indicated. ZORAN/CASEY/ZEFERINO DR: Michelle TID: [id number]
[2021-04-20] MEDS: IPRATRPIUM/ALBUTEROL 0.5/2.5MG 3 ML NEBU. NEB SCH ×2 (05:36→09:29)
[2021-04-20] MEDS: NIFEdipine 10 MG CAPSULE PO SCH (05:37)
[2021-04-20 05:44] VITALS: BP 154/82
[2021-04-20 06:14] LABS: BASO % 0 % (0-3); EOS % 0 % (0-3); HEMATOCRIT 35.6 % (36.0-47.0); HEMOGLOBIN 10.5 g/dL (12.0-15.5); LYMPH # 0.9 x10^3/uL (1.0-4.8); LYMPH % 6 % (24-48); MEAN CORPUSCULAR HEMOGLOBIN 23 pg (25-35); MEAN CORPUSCULAR HGB CONC 29 g/dL (31-37); MEAN CORPUSCULAR VOLUME 79 fL (79-100); MONO % 6 % (0-9); NEUT # 13.9 x10^3uL (1.8-7.7); NEUT % 88 % (31-73); PLATELET COUNT 374 x10^3/uL (140-400); RED BLOOD COUNT 4.53 x10^6/uL (3.50-5.40); RED CELL DISTRIBUTION WIDTH 14.1 % (11.5-14.5); WHITE BLOOD COUNT 15.8 x10^3/uL (4.0-11.0)
[2021-04-20 06:27] LABS: CALCIUM 8.9 mg/dL (8.5-10.1); CREATININE 0.8 mg/dL (0.6-1.0); GFR 88.8; POTASSIUM 4.5 mmol/L (3.5-5.1)
[2021-04-20] MEDS: methylPREDNISolone SOD SUCC PF 40 MG/ML VIAL. IV SCH (07:58)
[2021-04-20] MEDS: DOXYCYCLINE HYCLATE 100 MG TABLET PO SCH (07:59)
[2021-04-20] MEDS: LACTOBACILLUS RHAMNOSUS GG 1 CAPSULE. PO SCH (07:59)
[2021-04-20] MEDS: BACLOFEN 10 MG TABLET PO SCH (07:59)
[2021-04-20] MEDS: azaTHIOprine 50 MG TABLET PO SCH (08:00)
[2021-04-20] MEDS: ROFLUMILAST 500 MCG TABLET PO SCH (08:01)
[2021-04-20 08:12] LABS: % ATYL 3 % (0-0); % BANDS 1 % (0-9); % LYMPHS 12 % (24-48); % MONOS 3 % (0-10); % SEGS 81 % (35-66)
[2021-04-20 08:14] LABS: PLT ESTIMATE ADEQUATE (ADEQUATE)
[2021-04-20 08:17] LABS: HYPOCHROMIA SLIGHT
[2021-04-20] MEDS: BUDESONIDE 0.5 MG/2 ML NEBU IH SCH (09:29)
[2021-04-20 10:25] VITALS: BP 116/67
[2021-04-20] MEDS ORDERED: LISI10TA16 PO (11:12)
[2021-04-20] MEDS ORDERED: DOXY100T PO (11:12)
[2021-04-20] MEDS ORDERED: PRED5TAB PO (11:12)
[2021-04-20] MEDS ORDERED: ROFL500T7 PO (11:12)
[2021-04-20] MEDS ORDERED: NIFE10CA2 PO (11:12)
[2021-04-20] MEDS ORDERED: BACL10TA PO (11:12)
[2021-04-20] MEDS ORDERED: AZAT50TA20 PO (11:29)
[2021-04-20] MEDS ORDERED: ALBU2.5V8 IH (11:29)
--- NOTE | 2021-04-20 13:46 | NUR ---
Discharge Note Patient read discharge instructions, all questions answered in full, patient denies any other needs. Invasive line taken out per PADMINI Mitlon. Patient accompanied per family and in wheelchair for discharge.
== END 2021-04-20 13:52 | disposition home or self-care (01) | DRG 871 ==
LOC: ER 13:27 → 1 SOUTH 14:17
PROVIDERS: ADMIT Family Medicine; ATTEND Family Medicine
DX: A41.9 Sepsis, unspecified organism (principal); J96.21 Acute and chronic respiratory failure with hypoxia; J18.9 Pneumonia, unspecified organism; E44.0 Moderate protein-calorie malnutrition; J44.1 Chronic obstructive pulmonary disease with (acute) exacerbation; J44.0 Chronic obstructive pulmonary disease with (acute) lower respiratory infection; I10 Essential (primary) hypertension; D86.0 Sarcoidosis of lung; D64.9 Anemia, unspecified; J20.9 Acute bronchitis, unspecified; Z68.26 Body mass index [BMI] 26.0-26.9, adult; Z88.1 Allergy status to other antibiotic agents; Z99.81 Dependence on supplemental oxygen; Z87.891 Personal history of nicotine dependence
CPT/HCPCS: 36415; 71046; 71250; 80047; 80048; 80053; 82550; 83605; 83880; 84484; 85007; 85025; 93005; 94640; 94760; J0696; J2920; J7500; 99285-25

== ENCOUNTER 2021-09-29 10:44 | Inpatient (IN) | payer OTHER ==
[~2021-09-29] VITALS: Ht 165.1 cm; Wt 73.5 kg
[~2021-09-29 10:44] MED LIST changes: +BACL10TA PO; +DOXY100T PO; +FLUT1BLS3 IH; +LISI10TA16 PO; +NIFE10CA2 PO; +PRED-220 PO; +PRED5TAB PO; -VANC1VIA34 MC; +VANC1VIA37 MC
[2021-09-29] MEDS ORDERED: LOPERAMIDE 2 MG CAPSULE PO ONE (11:00)
[2021-09-29] MEDS ORDERED: IV NORMAL SALINE 1,000ML 1,000 ML IV ONE (11:00)
[2021-09-29] MEDS ORDERED: IPRATRPIUM/ALBUTEROL 0.5/2.5MG 3 ML NEBU. NEB ONE (11:00)
--- NOTE | 2021-09-29 11:00 | PHYS DOC ---
Past History Past Medical History: Arthritis, COPD, Pneumonia, Renal Failure Past Surgical History: Other Additional Past Surgical Histo: chest tube placement for pneumothorax 10/2019 Smoking: Quit Greater Than 1 Year Alcohol Use: None Drug Use: None General Adult EDM: Chief Complaint: ABDOMINAL PAIN HPI: HPI: 61-year-old female presents via EMS with 2-day history of abdominal pain and diarrhea. She states that she has very watery diarrhea. There is no blood or dark color. The pain in her abdomen is a squeezing/cramping sensation of mod erate intensity. It has gotten worse and that is why she decided come the emergency room. Patient has a history of COPD and is on 2 to 3 L of oxygen at baseline. She denies any increased shortness of breath or chest pain. She has not had any vomiting but has nausea. Review of Systems: Review of Systems: Constitutional: Denies fever or chills Eyes: Denies change in visual acuity HENT: Denies nasal congestion or sore throat Respiratory: Denies cough or shortness of breath Cardiovascular: Denies chest pain or edema GI: abdominal pain, diarrhea : Denies dysuria Musculoskeletal: Denies back pain or joint pain Integument: Denies rash Neurologic: Denies headache, focal weakness or sensory changes Endocrine: Denies polyuria or polydipsia Lymphatic: Denies swollen glands Psychiatric: Denies depression or anxiety Allergies: Allergies: Allergies Coded Allergies Type Severity Reaction Last Updated Verified vancomycin Adverse Reaction Severe RENAL FAILURE 05/01/18 Yes Physical Exam: PE: Constitutional: Well developed, well nourished, no acute distress, non-toxic appearance. [] HENT: Normocephalic, atraumatic, bilateral external ears normal, oropharynx moist, no oral exudates, nose normal. [] Eyes: PERRLA, EOMI, conjunctiva normal, no discharge. [] Neck: Normal range of motion, no tenderness, supple, no stridor. [] Cardiovascular: Heart rate regular rhythm, no murmur [] Lungs & Thorax: Bilateral breath sounds clear to auscultation [] Abdomen: Bowel sounds normal, soft, mild generalized tenderness, no masses, no pulsatile masses. [] Skin: Warm, dry, no erythema, no rash. [] Back: No tenderness, no CVA tenderness. [] Extremities: No tenderness, no cyanosis, no clubbing, ROM intact, no edema. [] Neurologic: Alert and oriented X 3, normal motor function, normal sensory function, no focal deficits noted. [] Psychologic: Affect normal, judgement normal, mood normal. [] EKG: EKG: [] Radiology/Procedures: Radiology/Procedures: [] Impressions: Single view chest dated 09/29/2021 12:19 PM: COMPARISON: 04/28/2021 Clinical Indication: Tachycardia. Findings: Single upright portable exam of the chest was performed. Heart and mediastinal contours are stable. Lungs are hyperinflated but otherwise clear. There are prominent perihilar linear markings, unchanged. Apical predominant bronchiectasis. No new infiltrate or pleural effusion. No pneumothorax. There is some nodular densities at the left lung base, unchanged. Biapical scarring, unchanged. IMPRESSION: 1. Chronic bronchiectasis and upper lobe volume loss with biapical scarring, unchanged. There is likely superimposed emphysema. 2. No new abnormality. Electronically signed by: Bart Yang MD (09/29/2021 12:21 PM) [id number] DICTATED AND SIGNED BY: BART YANG MD DATE: 09/29/21 1219 CC: PETER VILLAR DO; GABE PEARCE MD ~MTH0 0 EXAMINATION: CT abdomen and pelvis without IV contrast. INDICATION:61 years, Female, abdominal pain. TECHNIQUE: Axial CT images of the abdomen and pelvis were obtained. Coronal and sagittal reformatted performed. COMPARISON: None. Exposure: One or more of the following individualized dose reduction techniques were utilized for this examination: 1. Automated exposure control 2. Adjustment of the mA and/or kV according to patient size 3. Use of iterative reconstruction technique. FINDINGS: LOWER CHEST: Tree-in-bud nodularities in bibasilar lungs. ABDOMEN/PELVIS: Within the limitation of noncontrast exam, Liver, gallbladder, biliary ducts, spleen, pancreas, and pancreas are u nremarkable. No hydronephrosis in either kidney. There is a 2 mm nonobstructing calculus in the interpolar right kidney. No bowel obstruction or wall thickening. Few colonic diverticulosis without acute diverticulitis. Fluid-filled mildly distended appendix measures up to 1.0 cm in maximum diameter, appears continuous with the focal fluid within the cecal tip. No periappendiceal fat stranding. Normal caliber abdominal aorta. No pneumoperitoneum or ascites. No lymphadenopathy in the abdomen or pelvis by size criteria. Raysa fat in the central small bowel mesentery with prominent mesenteric lymph nodes, nonspecific findings and can be seen in mesenteric panniculitis. Underdistended urinary bladder which limits evaluation. Unremarkable uterus. No suspicious pelvic masses. MUSCULOSKELETAL STRUCTURES: No acute osseous process. IMPRESSION: 1. No acute abnormality in the abdomen or pelvis, within contrast exam 2. Fluid-filled mildly distended appendix measuring up to 1.0 cm in maximum diameter, appears continuous with focal fluid within the cecal tip. 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 3. Punctate nonobstructing right nephrolithiasis. 4. Tree-in-bud nodularities in bibasilar lungs, likely reflecting infectious/inflammatory bronchiolitis. Electronically signed by: Cora Diaz MD (09/29/2021 12:34 PM) [id number] DICTATED AND SIGNED BY: CORA DIAZ MD DATE: 09/29/21 1221 CC: PETER VILLAR DO; GABE PEARCE MD ~MTH0 0 Heart Score: C/O Chest Pain: N/A Risk Factors: Risk Factors: DM, Current or recent (<one month) smoker, HTN, HLP, family history of CAD, obesity. Risk Scores: Score 0 - 3: 2.5% MACE over next 6 weeks - Discharge Home Score 4 - 6: 20.3% MACE over next 6 weeks - Admit for Clinical Observation Score 7 - 10: 72.7% MACE over next 6 weeks - Early Invasive Strategies Course & Med Decision Making: Course & Med Decision Making Pertinent Labs and Imaging studies reviewed. (See chart for details) Chest x-ray suggests acute on chronic COPD. I have treated the patient with steroids and breathing treatments. Patient's labs show mild white count and mild anemia. I spoke with Dr. New and he has accepted the patient for admission. [] Maria Disclaimer: Maria Disclaimer: This electronic medical record was generated, in whole or in part, using a voice recognition dictation system. Departure Departure: Impression: Primary Impression: COPD (chronic obstructive pulmonary disease) Disposition: ADMITTED INPATIENT Admitting Physician: Gabe Pearce Condition: STABLE Referrals: GABE PEARCE MD (PCP) PETER VILLAR DO Sep 29, 2021 11:00
--- NOTE | 2021-09-29 11:08 | EKG ---
[address] [address] Test Date: 2021-09-29 Test Time: 10:50:40 Pat Name: JOCELIN GALDAMEZ Department: Room: Gender: F [employer] Supervisor: RIZWAN : 1960 Requested By: PETER VILLAR Order Number: [id number] Reading MD: Merrill Bellamy Measurements Intervals [place] Rate: 112 P: 0 VA: 88 QRS: 73 QRSD: 78 T: 75 QT: 290 QTc: 397 Interpretive Statements SINUS TACHYCARDIA Electronically Signed On 09-30-2021 7:14:57 PURCHASE PRICE ANALYST by Merrill Bellamy
[2021-09-29] MEDS ORDERED: IOHEXOL 300 MG/ML 75 ML VIAL. IV ONE (11:15)
[2021-09-29 11:42] LABS: BASO # 0.1 x10^3/uL (0.0-0.2); BASO % 1 % (0-3); EOS # 0.1 x10^3/uL (0.0-0.7); EOS % 1 % (0-3); HEMOGLOBIN 11.2 g/dL (12.0-15.5); LYMPH # 0.7 x10^3/uL (1.0-4.8); LYMPH % 6 % (24-48); MEAN CORPUSCULAR HEMOGLOBIN 24 pg (25-35); MEAN CORPUSCULAR HGB CONC 30 g/dL (31-37); MEAN CORPUSCULAR VOLUME 82 fL (79-100); MONO # 0.9 x10^3/uL (0.0-1.1); MONO % 7 % (0-9); NEUT # 11.1 x10^3uL (1.8-7.7); NEUT % 86 % (31-73); PLATELET COUNT 322 x10^3/uL (140-400); RED BLOOD COUNT 4.65 x10^6/uL (3.50-5.40); RED CELL DISTRIBUTION WIDTH 16.3 % (11.5-14.5)
[2021-09-29 11:55] LABS: CALCIUM 8.6 mg/dL (8.5-10.1); CREATININE 0.7 mg/dL (0.6-1.0); GFR 103.3; POTASSIUM 4.4 mmol/L (3.5-5.1)
[2021-09-29 11:57] LABS: ALBUMIN 3.1 g/dL (3.4-5.0); ALBUMIN/GLOBULIN RATIO 0.7 (1.0-1.7); TOTAL BILIRUBIN 0.7 mg/dL (0.2-1.0); TOTAL PROTEIN 7.6 g/dL (6.4-8.2)
--- NOTE | 2021-09-29 12:24 | RAD ---
Single view chest dated 09/29/2021 12:19 PM: COMPARISON: 04/28/2021 Clinical Indication: Tachycardia. Findings: Single upright portable exam of the chest was performed. Heart and mediastinal contours are stable. L ungs are hyperinflated but otherwise clear. There are prominent perihilar linear markings, unchanged. Apical predominant bronchiectasis. No new infiltrate or pleural effusion. No pneumothorax. There is some nodular densities at the left lung base, unchanged. Biapical scarring, unchanged. IMPRESSION: 1. Chronic bronchiectasis and upper lobe volume loss with biapical scarring, unchanged. There is like ly superimposed emphysema. 2. No new abnormality. Electronically signed by: Bart Yang MD (09/29/2021 12:21 PM) [id number]
--- NOTE | 2021-09-29 12:37 | RAD ---
EXAMINATION: CT abdomen and pelvis without IV contrast. INDICATION:61 years, Female, abdominal pain. TECHNIQUE: Axial CT images of the abdomen and pelvis were obtained. Coronal and sagittal reformatted performed. COMPARISON: None. Exposure: One or more of the following individualized dose reduction techniques were utilized for thi s examination: 1. Automated exposure control 2. Adjustment of the mA and/or kV according to patient size 3. Use of iterative reconstruction technique. FINDINGS: LOWER CHEST: Tree-in-bud nodularities in bibasilar lungs. ABDOMEN/PELVIS: Within the limitation of noncontrast exam, Liver, gallbladder, biliary ducts, spleen, pancreas, and pancreas are unremarkable. No hydronephrosis in either kidney. There is a 2 mm nonobstructing calculus in the interpolar right kidney. No bowel obstruction or wall thickening. Few colonic diverticulosis without acute diverticulitis. Flu id-filled mildly distended appendix measures up to 1.0 cm in maximum diameter, appears continuous wit h the focal fluid within the cecal tip. No periappendiceal fat stranding. Normal caliber abdominal ao rta. No pneumoperitoneum or ascites. No lymphadenopathy in the abdomen or pelvis by size criteria. Mi sty fat in the central small bowel mesentery with prominent mesenteric lymph nodes, nonspecific findi ngs and can be seen in mesenteric panniculitis. Underdistended urinary bladder which limits evaluatio n. Unremarkable uterus. No suspicious pelvic masses. MUSCULOSKELETAL STRUCTURES: No acute osseous process. IMPRESSION: 1. No acute abnormality in the abdomen or pelvis, within contrast exam 2. Fluid-filled mildly distended appendix measuring up to 1.0 cm in maximum diameter, appears continu ous with focal fluid within the cecal tip. 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 3. Punctate nonobstructing right nephrolithiasis. 4. Tree-in-bud nodularities in bibasilar lungs, likely reflecting infectious/inflammatory bronchiolit is. Electronically signed by: Baltazar Diaz MD (09/29/2021 12:34 PM) [id number]
[2021-09-29] MEDS ORDERED: methylPREDNISolone SOD SUCC PF 125 MG/2 ML VIAL. IV ONE (13:00)
[2021-09-29] MEDS ORDERED: ONDANSETRON PF 4 MG/2 ML VIAL. IVP PRN (13:15)
--- NOTE | 2021-09-29 14:05 | NUR ---
PT ARRIVED TO UNIT VIA EMS. PT IS STABLE AT TIME OF ADMISSION. PT IS ORIENTED TO UNIT AND GIVEN ALL ADMISSION EDUCATION. PTS TELE MONIOTR APPLIED AND PT IS RESTING IN ROOM AT THIS TIME. DR PEARCE NOTIFIED OF ADMISSION. WILL CONTINUE TO MONITOR.
[2021-09-29 14:44] VITALS: BP 91/59
[2021-09-29] MEDS ORDERED: LISI20TA18 PO (15:34)
[2021-09-29] MEDS ORDERED: PRED-220 PO (16:08)
[2021-09-29] MEDS: IPRATRPIUM/ALBUTEROL 0.5/2.5MG 3 ML NEBU. NEB SCH ×2 (16:15→21:14)
[2021-09-29 18:54] VITALS: BP 106/68
[2021-09-29] MEDS: MORPHINE SULFATE 2 MG/ML DISP.SYRIN. IV PRN ×2 (21:54→23:40)
[2021-09-29] MEDS: ACETAMINOPHEN 325 MG TABLET PO PRN (23:40)
[2021-09-30 00:20] VITALS: BP 95/59
[2021-09-30] MEDS: MORPHINE SULFATE 2 MG/ML DISP.SYRIN. IV PRN (02:01)
[2021-09-30] MEDS: IPRATRPIUM/ALBUTEROL 0.5/2.5MG 3 ML NEBU. NEB SCH ×4 (05:58→20:50)
[2021-09-30 06:18] VITALS: BP 96/63
[2021-09-30] MEDS: ACETAMINOPHEN 325 MG TABLET PO PRN (06:26)
[2021-09-30 10:35] LABS: COLOR,URINE YELLOW
[2021-09-30 10:36] LABS: BACTERIA,URINE FEW /HPF (0-FEW); BILIRUBIN,URINE NEG (NEG); CLARITY,URINE CLEAR; GLUCOSE,URINE NEG (NEG); NITRITE,URINE NEG (NEG); SQUAMOUS EPITHELIAL CELL,UR MOD /LPF; UROBILINOGEN,URINE 0.2 mg/dL (0.2 mg/dL)
[2021-09-30] MEDS ORDERED: ALBUTEROL SULFATE 2.5 MG/3 ML NEBU. IH PRN (11:00)
[2021-09-30 11:27] VITALS: BP 98/61
[2021-09-30] MEDS ORDERED: ALBUTEROL SULFATE 2.5 MG/3 ML NEBU. IH SCH (12:00)
[2021-09-30] MEDS: methylPREDNISolone SOD SUCC PF 40 MG/ML VIAL. IV SCH ×2 (14:13→20:12)
[2021-09-30 15:58] VITALS: BP 111/68
--- NOTE | 2021-09-30 17:51 | NUR ---
PT DID NOT C/O PAIN ALL DAY. PT RECEIVED A DOSE OF SOLU-MEDROL AND HER BREATHING TREATMENTS. THIS RN AND RT DID NOT HEAR ANY WHEEZING. DR. PEARCE TOLD PT HE STILL HEARS WHEEZING AND WILL RE-ASSESS TOMORROW.
[2021-09-30] MEDS: HYDROcodone/APAP 7.5/325MG 1 TAB TABLET PO PRN (18:08)
[2021-09-30 19:30] VITALS: BP 120/55
[2021-09-30] MEDS: BACLOFEN 10 MG TABLET PO SCH (20:12)
[2021-09-30] MEDS: azaTHIOprine 50 MG TABLET PO SCH (20:12)
[2021-09-30 23:20] VITALS: BP 153/80
[2021-10-01] MEDS: IPRATRPIUM/ALBUTEROL 0.5/2.5MG 3 ML NEBU. NEB SCH ×4 (05:43→20:54)
[2021-10-01 05:57] VITALS: BP 124/77
[2021-10-01] MEDS: BACLOFEN 10 MG TABLET PO SCH ×2 (08:17→21:08)
[2021-10-01] MEDS: ROFLUMILAST 500 MCG TABLET PO SCH (08:18)
[2021-10-01] MEDS: azaTHIOprine 50 MG TABLET PO SCH ×2 (08:19→21:09)
[2021-10-01] MEDS: methylPREDNISolone SOD SUCC PF 40 MG/ML VIAL. IV SCH ×2 (08:20→21:08)
[2021-10-01 09:48] LABS: BASO % 0 % (0-3); EOS % 0 % (0-3); HEMATOCRIT 32.4 % (36.0-47.0); HEMOGLOBIN 9.7 g/dL (12.0-15.5); LYMPH # 0.8 x10^3/uL (1.0-4.8); LYMPH % 9 % (24-48); MEAN CORPUSCULAR HEMOGLOBIN 24 pg (25-35); MEAN CORPUSCULAR HGB CONC 30 g/dL (31-37); MEAN CORPUSCULAR VOLUME 81 fL (79-100); MONO # 0.7 x10^3/uL (0.0-1.1); MONO % 9 % (0-9); NEUT # 7.2 x10^3uL (1.8-7.7); NEUT % 82 % (31-73); PLATELET COUNT 312 x10^3/uL (140-400); RED BLOOD COUNT 4.02 x10^6/uL (3.50-5.40); RED CELL DISTRIBUTION WIDTH 16.8 % (11.5-14.5); WHITE BLOOD COUNT 8.7 x10^3/uL (4.0-11.0)
[2021-10-01 09:52] LABS: CALCIUM 8.6 mg/dL (8.5-10.1); CREATININE 0.8 mg/dL (0.6-1.0); GFR 88.5; POTASSIUM 3.8 mmol/L (3.5-5.1)
[2021-10-01 10:47] VITALS: BP 134/72
[2021-10-01 14:40] VITALS: BP 110/65
[2021-10-01] MEDS: HYDROcodone/APAP 7.5/325MG 1 TAB TABLET PO PRN ×2 (15:15→21:08)
[2021-10-01 19:00] VITALS: BP 114/68
--- NOTE | 2021-10-01 21:33 | PN ---
SUBJECTIVE: A 61-year-old female in with acute exacerbation of her COPD secondary to her sarcoid. The patient otherwise seems to be resting fairly comfortably and making fairly good progress overall. She also had sinus tachycardia, severe dehydration, diarrhea and abdominal pain. The abdominal pain and diarrhea seems to be resolved. She is negative for COVID, but does have still some breathing problems. As noted, she does have chronic sarcoid, chronic oxygen needs. She is still very weak, regaining her strength gradually, increasing her diet, continue with PT/ OT and breathing treatments as indicated. OBJECTIVE: VITAL SIGNS: Blood pressure 124/77, respirations 24, pulse 93, afebrile, 2 liters at 92. LUNGS: Diminished. Some wheezing in the anterior lobes. ABDOMEN: Soft. Otherwise, making good progress. Continue to make further adjustments on her medication. IMPRESSION AND PLAN: Abdominal pain, nausea, vomiting, diarrhea, exacerbation of chronic obstructive pulmonary disease secondary to sarcoid. Continue to taper down on steroids. Hydrate, continue to monitor her for hydration and advance diet. ZORAN/AISLINN/HOANG DR: Michelle TID: [id number]
[2021-10-02] MEDS: IPRATRPIUM/ALBUTEROL 0.5/2.5MG 3 ML NEBU. NEB SCH ×2 (05:25→09:17)
[2021-10-02 05:45] VITALS: BP 114/72
[2021-10-02] MEDS: BACLOFEN 10 MG TABLET PO SCH (08:16)
[2021-10-02] MEDS: methylPREDNISolone SOD SUCC PF 40 MG/ML VIAL. IV SCH (08:16)
[2021-10-02] MEDS: azaTHIOprine 50 MG TABLET PO SCH (08:17)
[2021-10-02] MEDS: ROFLUMILAST 500 MCG TABLET PO SCH (08:18)
[2021-10-02] MEDS ORDERED: PRED5TAB PO (09:38)
--- NOTE | 2021-10-02 11:59 | DS ---
DATE OF DISCHARGE: 10/02/2021 HOSPITAL COURSE: This is a 61-year-old female came in through the Emergency Room with severe abdominal pain with nausea, vomiting and severe diarrhea as well as shortness of breath. She has a history of sarcoid. She has been ill for 2-3 days, unable to keep fluids down. The patient's urine specific gravity confirmed her concentration of her urine was growing greater than 1.030 consistent with severe dehydration. Unfortunately, her SARS were negative. The patient's hemoglobin dropped from 11.2 down to 9.7. White count was elevated at 13,000. The patient as usual was more short of breath than usual as she does have sarcoid and the patient also had a temperature of 100.1. Her heart rate was greater than 130 and medication had to be adjusted there. Her blood pressure dropped down to 90/59. Adjustments on her medications were imperative to bring her back into a normal physiological state. She was given additional fluids, monitored on her diarrhea and her abdominal pain. The patient otherwise made relatively good progress. She was given additional steroids to help her with her breathing. She had tightness and decreased breath sounds, more so than usual. Overall, the patient made excellent progress during her stay and resuscitation of IV fluids, aggressive pulmonary toilet, correction of vital signs such as her pulse and blood pressures. FINAL DIAGNOSES: Includes that of severe dehydration, sinus tachycardia, abdominal pain, probable gastroenteritis, exacerbation of chronic obstructive pulmonary disease secondary to her sarcoid, emphysema, diarrhea, bronchitis, appendiceal, mucocele, anemia of chronic disease, moderate protein malnutrition, hypotension. The patient made good progress as indicated. DISCHARGE DISPOSITION: She will be discharged home on a regular diet, decreased activity, tapering doses of prednisone and follow up accordingly as an outpatient with her noodle maker as well as her primary care. ZORAN DR: ZORAN/garland TID: [id number]
--- NOTE | 2021-10-02 12:04 | NUR ---
Pt Discharged at 1205 via wheelchair accompanied by friend . pt given written and verbal instructions for discharge with verbal statement of understanding received.
--- NOTE | 2021-10-08 09:51 | HP ---
DATE OF SERVICE: 09/30/2021 ADMIT DATE: 09/29/2021 HISTORY OF PRESENT ILLNESS: A 61-year-old female came in through the Emergency Room with increased shortness of breath. This pleasant female has a long history of sarcoidosis, but now she is short of breath. She has been having severe abdominal pain with severe watery diarrhea. She denies any blood or mucus in the stool, but she has been having severe cramping with watery stools, here for the last 2-3 days with nausea. She became increasingly dehydrated, increasingly short of breath as noted. The patient has a history of sarcoid and that has been exacerbated as well. She is on a history of 2-3 liters of oxygen continuous and that is barely meeting her needs for her oxygenation. The patient otherwise is admitted for dehydration, abdominal pain, diarrhea, and exacerbation of her COPD with sarcoid as an underlying precipitating factor. PAST MEDICAL HISTORY: She has had chronic headaches, emphysema, pneumonia, sarcoid, chronic oxygen, colonic polyps, history of obesity, GERD, multiple urinary tract infections, multiple endocrine disorders. Her vaccinations are up-to-date for Pneumococcal, influenza, tetanus and COVID. ALLERGIES: IODINE, CONTRAST AND VANCOMYCIN. SOCIAL HISTORY: Previous history of smoking, but none recently. No alcohol or drug use. The patient is a FULL CODE. REVIEW OF SYSTEMS: The patient has a chronic headache, seems to be exacerbated with the situation as indicated. The patient otherwise does have shortness of breath. Denies chest pain. Does have severe abdominal cramping with the diarrhea, which is watery and has about 5-10 stools a day. She has some nausea, but no vomiting. She denies any blood or mucus noted in the stool per se. The patient has no problems urinating. Neurologically, otherwise baseline for her as indicated. PHYSICAL EXAMINATION: GENERAL: This is a very pleasant patient, looking younger than stated age. The patient is very frail-appearing, emaciated appearing. VITAL SIGNS: Blood pressure initially 148/66, however, with her heart rate of 130, temperature of 100.1, blood pressure dropped down to 90/59, respiratory rate of 30 and then dropped down to 24, temperature from 100.1 down to 98.4, oxygen stayed at 2 liters at 99%. HEENT: The patient otherwise head was atraumatic, normocephalic. Eyes: PERRLA without jaundice. The mouth and throat were normal. NECK: Supple without JVD, carotid bruits, nor thyroidmegaly. LUNGS: Diminished throughout, poor movement of air. CARDIOVASCULAR: Regular sinus rhythm. S1, S2, without murmur, rub, thrill, or extra heart sounds. ABDOMEN: Soft, scaphoid, diffuse tenderness throughout. No hepatosplenomegaly was noted. EXTREMITIES: Without clubbing, cyanosis, nor edema. NEUROLOGIC: The patient was alert and oriented x 3. Pulses were noted distally and the patient's stool was Hemoccult negative. LABORATORY DATA: Her labs demonstrated white count of 13,000, hemoglobin 11 and 38. The patient's chemistries, sodium 142, potassium 4.4, glucose 123, albumin 3.1. Urine showed a concentration of greater than 1.030. Serology was negative for SARS. Stool specimens are still pending for results on that as far as any signs of C. diff or fecal Hemoccults. IMPRESSION AND PLAN: Therefore, sinus tachycardia, severe dehydration, diarrhea, abdominal pain, lack of fluid, exacerbation of chronic obstructive pulmonary disease secondary to exacerbation of her sarcoid, emphysema, diarrhea, bronchiolitis, appendiceal, mucocele. The patient continued to be monitored carefully, fluids, gentle hydration and make further assessment on her with continued gentle hydration, aggressive pulmonary toilet and making adjustments on her accordingly. KISHORE DR: Michelle TID: [id number]
== END 2021-10-02 12:06 | disposition home or self-care (01) | DRG 391 ==
LOC: ER 10:44 → 1 SOUTH 13:01
PROVIDERS: ADMIT Family Medicine; ATTEND Family Medicine
DX: K52.9 Noninfective gastroenteritis and colitis, unspecified (principal); J96.01 Acute respiratory failure with hypoxia; J21.9 Acute bronchiolitis, unspecified; E44.0 Moderate protein-calorie malnutrition; J47.0 Bronchiectasis with acute lower respiratory infection; E86.0 Dehydration; J43.9 Emphysema, unspecified; K21.9 Gastro-esophageal reflux disease without esophagitis; M19.90 Unspecified osteoarthritis, unspecified site; E66.9 Obesity, unspecified; D86.9 Sarcoidosis, unspecified; Z20.822 Contact with and (suspected) exposure to COVID-19; D63.8 Anemia in other chronic diseases classified elsewhere; Z87.891 Personal history of nicotine dependence; Z91.041 Radiographic dye allergy status; Z87.440 Personal history of urinary (tract) infections; Z87.19 Personal history of other diseases of the digestive system; Z68.27 Body mass index [BMI] 27.0-27.9, adult
CPT/HCPCS: 36415; 71045; 74176; 80048; 80053; 81001; 83690; 84484; 85025; 87426; 93005; 94640; 96360; 96361; J2270; J2920; J2930; J7500; U0003; 99285-25; J7030

== ENCOUNTER 2021-12-12 19:03 | Emergency (ER) | payer OTHER ==
[~2021-12-12] VITALS: Ht 165.1 cm; Wt 73.5 kg
[~2021-12-12 19:03] MED LIST changes: +LISI20TA18 PO
--- NOTE | 2021-12-12 19:44 | EKG ---
[address] [address] Test Date: 2021-12-12 Test Time: 19:26:29 Pat Name: JOCELIN GALDAMEZ Department: Room: Gender: F Nurse Anesthetist: : 1960 Requested By: MARCELINA GONCALVES Order Number: [id number] Reading MD: Shane Starks Measurements Intervals [place] Rate: 119 P: 72 PA: 118 QRS: 73 QRSD: 68 T: 64 QT: 290 QTc: 408 Interpretive Statements SINUS TACHYCARDIA Electronically Signed On 12-13-2021 13:44:02 [employer]PER[employer] by Shane Starks
[2021-12-12] MEDS ORDERED: IPRATRPIUM/ALBUTEROL 0.5/2.5MG 3 ML NEBU. NEB ONE (19:45)
[2021-12-12] MEDS ORDERED: AZITHROMYCIN 500 MG in IV NORMAL SALINE 250ML 250 ML IV ONE (19:45)
[2021-12-12] MEDS ORDERED: AZITHROMYCIN 500 MG VIAL. IV ONE (19:55)
[2021-12-12] MEDS ORDERED: IV NORMAL SALINE 250ML 250 ML ONE (19:55)
[2021-12-12] MEDS ORDERED: IV NORMAL SALINE 50ML 50 ML ONE (19:55)
[2021-12-12] MEDS ORDERED: cefTRIAXone SODIUM 1 GM VIAL ONE (19:55)
[2021-12-12] MEDS ORDERED: DEXAMETHASONE SOD PHOS 10 MG/ML VIAL. ONE (19:56)
--- NOTE | 2021-12-12 19:58 | RAD ---
XR CHEST 1V History: Reason: SOB, cough / Spl. Instructions: / History: Comparison: September 29, 2021 Findings: Bilateral bronchiectasis with reticular interstitial thickening, similar compared to prior. No new co nsolidation. No pleural effusion. No pneumothorax. Unchanged heart size. Hyperinflation. Postop velasquez es left upper lung. Impression: 1. Chronic bronchiectasis with reticular interstitial thickening. No new consolidation. Electronically signed by: Jose Newman DO (12/12/2021 7:56 PM) [facility]
[2021-12-12] MEDS ORDERED: DEXAMETHASONE SOD PHOS 10 MG/ML VIAL. IV ONE (20:00)
--- NOTE | 2021-12-12 20:15 | PHYS DOC ---
Past History Past Medical History: Arthritis, COPD, Pneumonia, Renal Failure (HOWARD NATHAN) Past Surgical History: Other Additional Past Surgical Histo: chest tube placement for pneumothorax 10/2019 (HOWARD NATHAN) Smoking: Quit Greater Than 1 Year Alcohol Use: None Drug Use: None (HOWARD NATHAN) General Adult EDM: Chief Complaint: SHORTNESS OF BREATH HPI: HPI: Patient is a 61 year old female with past medical history of COPD who presents with 1 week history of shortness of breath, cough, loss of taste and smell, headache, body ache, generalized weakness. Patient reports she is vaccinated against COVID-19, has received a booster, and is vaccinated against the flu. Patient was satting in the mid-high 80s prior to arrival. (HOWARD NATHAN) Review of Systems: Review of Systems: Constitutional: Denies fever or chills Eyes: Denies change in visual acuity, visual field deficits or discharge HENT: Denies ear pain, nasal congestion or sore throat Respiratory: See HPI Cardiovascular: Denies chest pain, palpitations or edema GI: Denies abdominal pain, nausea, vomiting, bloody stools or diarrhea : Denies dysuria or hematuria Musculoskeletal: Denies back pain or joint pain Integument: Denies rash or other skin lesion Neurologic: Denies focal weakness or sensory changes (HOWARD NATHAN) Current Medications: Current Meds: Current Medications Medications (Trade) Dose Ordered Sig/Maxwell Start Time Stop Time Status Last Admin Dose Admin Albuterol/ Ipratropium (Duoneb) 3 ml 1X ONCE 12/12/21 19:45 12/12/21 19:46 DC Azithromycin (Zithromax) 500 mg STK-MED ONCE 12/12/21 19:55 12/12/21 19:56 DC Azithromycin 500 mg/Sodium Chloride 250 ml @ 250 mls/hr 1X ONCE 12/12/21 19:45 12/12/21 20:44 12/12/21 20:00 250 MLS/HR Ceftriaxone Sodium 1 gm/ Sodium Chloride 50 ml @ 100 mls/hr 1X ONCE 12/12/21 19:45 12/12/21 20:14 12/12/21 20:00 100 MLS/HR Ceftriaxone Sodium (Rocephin) 1 gm STK-MED ONCE 12/12/21 19:55 12/12/21 19:56 DC Dexamethasone Sodium Phosphate (Decadron) 10 mg STK-MED ONCE 12/12/21 19:56 12/12/21 19:56 DC Sodium Chloride 50 ml @ As Directed STK-MED ONCE 12/12/21 19:55 12/12/21 19:55 DC (HOWARD NATHAN) Allergies: Allergies: Allergies Coded Allergies Type Severity Reaction Last Updated Verified Iodinated Contrast Media Allergy Unknown 09/29/21 Yes vancomycin Adverse Reaction Severe RENAL FAILURE 05/01/18 Yes (HOWARD NATHAN) Physical Exam: PE: Constitutional: Well developed, well nourished, patient has increased work of breathing and appears fatigued. HENT: Normocephalic, atraumatic, bilateral external ears normal, nose normal. Eyes: EOMI, conjunctiva normal, no discharge. Neck: Normal range of motion, no stridor. Cardiovascular: Elevated heart rate with regular rhythm. Skin: Warm, dry, no erythema, no rash, no cyanosis. Extremities: No tenderness, no cyanosis, no clubbing, ROM intact, no edema. Neurologic: Alert and oriented x4, no focal deficits noted. (HOWARD NATHAN) Current Patient Data: Labs: Laboratory Tests Test 12/12/21 19:40 White Blood Count 11.4 x10^3/uL (4.0-11.0) Red Blood Count 4.28 x10^6/uL (3.50-5.40) Hemoglobin 10.5 g/dL (12.0-15.5) Hematocrit 35.9 % (36.0-47.0) Mean Corpuscular Volume 84 fL (79-100) Mean Corpuscular Hemoglobin 25 pg (25-35) Mean Corpuscular Hemoglobin Concent 29 g/dL (31-37) Red Cell Distribution Width 15.8 % (11.5-14.5) Platelet Count 380 x10^3/uL (140-400) Neutrophils (%) (Auto) 77 % (31-73) Lymphocytes (%) (Auto) 10 % (24-48) Monocytes (%) (Auto) 12 % (0-9) Eosinophils (%) (Auto) 0 % (0-3) Basophils (%) (Auto) 1 % (0-3) Neutrophils # (Auto) 8.8 x10^3uL (1.8-7.7) Lymphocytes # (Auto) 1.2 x10^3/uL (1.0-4.8) Monocytes # (Auto) 1.3 x10^3/uL (0.0-1.1) Eosinophils # (Auto) 0.0 x10^3/uL (0.0-0.7) Basophils # (Auto) 0.1 x10^3/uL (0.0-0.2) Sodium Level 144 mmol/L (136-145) Potassium Level 4.1 mmol/L (3.5-5.1) Chloride Level 97 mmol/L (98-107) Carbon Dioxide Level 44 mmol/L (21-32) Anion Gap 3 (6-14) Blood Urea Nitrogen 17 mg/dL (7-20) Creatinine 0.7 mg/dL (0.6-1.0) Estimated GFR (Cockcroft-Gault) 103.3 BUN/Creatinine Ratio 24 (6-20) Glucose Level 89 mg/dL (70-99) Lactic Acid Level 0.9 mmol/L (0.4-2.0) Calcium Level 9.1 mg/dL (8.5-10.1) Total Bilirubin 0.5 mg/dL (0.2-1.0) Aspartate Amino Transf (AST/SGOT) 14 U/L (15-37) Alanine Aminotransferase (ALT/SGPT) 16 U/L (14-59) Alkaline Phosphatase 72 U/L (46-116) Troponin I High Sensitivity 5 ng/L (4-50) Total Protein 7.7 g/dL (6.4-8.2) Albumin 3.2 g/dL (3.4-5.0) Albumin/Globulin Ratio 0.7 (1.0-1.7) Influenza Type A (Rapid) Negative (NEGATIVE) Influenza Type B (Rapid) Negative (NEGATIVE) SARS-CoV-2 Antigen (Rapid) Negative (NEGATIVE) Vital Signs: Vital Signs Date Time Temp Pulse Resp B/P (MAP) Pulse Ox O2 Delivery O2 Flow Rate FiO2 12/12/21 20:27 97 Nasal Cannula 3.0 12/12/21 20:05 113 24 144/79 (100) 98 Nasal Cannula 2.0 12/12/21 19:35 110 35 131/79 (96) 95 Nasal Cannula 2.0 12/12/21 19:11 98.9 114 30 160/77 (104) 94 Nasal Cannula 2.0 12/12/21 19:05 120 30 160/77 (104) 97 Nasal Cannula 2.0 (HOWARD NATHAN) EKG: EKG: EKG Interpreted by Dr. Goncalves: Sinus tachycardia 119 bpm with no ectopic beats. QT 290 ms/QTc 408 ms. No STEMI. (HOWARD NATHAN) Radiology/Procedures: Radiology/Procedures: PROCEDURE: CHEST AP ONLY XR CHEST 1V History: Reason: SOB, cough / Spl. Instructions: / History: Comparison: September 29, 2021 Findings: Bilateral bronchiectasis with reticular interstitial thickening, similar compare d to prior. No new consolidation. No pleural effusion. No pneumothorax. Unchanged heart size. Hyperinflation. Postop changes left upper lung. Impression: 1. Chronic bronchiectasis with reticular interstitial thickening. No new consolidation. Electronically signed by: Jose Newman DO (12/12/2021 7:56 PM) [facility] (HOWARD NATH[facility]) Heart Score: C/O Chest Pain: No (HOWARD NATHAN) Course & Med Decision Making: Course & Med Decision Making Pertinent Labs and Imaging studies reviewed. (See chart for details) Patient is a 61-year-old female who presents with symptoms concerning for viral syndrome, COVID-19 is likely. Work-up today will include labs, chest x-ray, EKG, swabs for influenza A&B as well as COVID-19. Patient has increased work of breathing and is tachypneic. DuoNeb treatment as well as fentanyl provided in attempt to calm her and slow her breathing. This was unsuccessful. We are also concerned for pulmonary embolism, however patient is allergic to contrast media. She is placed on bipap, which requires higher level of care than [facility] can provide. Patient will be transferred to [facility] for higher level of care including pulmonology. Patient started on Lovenox, IV dexamethasone and IV antibiotics. She was gladly accepted by Dr. Lincoln at [facility]. (HOWARD NATHAN) Course & Med Decision Making Agree with [facility] work-up and evaluation and disposition. (CONDRA,MARCELINA Sifuentes Disclaimer: Maria Disclaimer: This electronic medical record was generated, in whole or in part, using a voice recognition dictation system. (HOWARD NATHAN) Departure Departure: Impression: Primary Impression: Acute and chronic respiratory failure with hypoxia Additional Impressions: Suspected COVID-19 virus infection COPD (chronic obstructive pulmonary disease) with chronic bronchitis Disposition: 02 SHORT TERM HOSPITAL Condition: GUARDED Referrals: GABE PEARCE MD (PCP) HOWARD NATHAN Dec 12, 2021 20:15 MARCELINA GONCALVES MD Dec 12, 2021 22:26
[2021-12-12 20:20] LABS: CALCIUM 9.1 mg/dL (8.5-10.1); CREATININE 0.7 mg/dL (0.6-1.0); GFR 103.3; POTASSIUM 4.1 mmol/L (3.5-5.1)
[2021-12-12 20:21] LABS: INFLUENZA A PATIENT NEGATIVE (NEGATIVE); INFLUENZA B PATIENT NEGATIVE (NEGATIVE)
[2021-12-12 20:25] LABS: ALBUMIN 3.2 g/dL (3.4-5.0); ALBUMIN/GLOBULIN RATIO 0.7 (1.0-1.7); TOTAL BILIRUBIN 0.5 mg/dL (0.2-1.0); TOTAL PROTEIN 7.7 g/dL (6.4-8.2)
[2021-12-12 20:30] LABS: BASO # 0.1 x10^3/uL (0.0-0.2); BASO % 1 % (0-3); EOS % 0 % (0-3); HEMATOCRIT 35.9 % (36.0-47.0); HEMOGLOBIN 10.5 g/dL (12.0-15.5); LYMPH # 1.2 x10^3/uL (1.0-4.8); LYMPH % 10 % (24-48); MEAN CORPUSCULAR HEMOGLOBIN 25 pg (25-35); MEAN CORPUSCULAR HGB CONC 29 g/dL (31-37); MEAN CORPUSCULAR VOLUME 84 fL (79-100); MONO # 1.3 x10^3/uL (0.0-1.1); MONO % 12 % (0-9); NEUT # 8.8 x10^3uL (1.8-7.7); NEUT % 77 % (31-73); PLATELET COUNT 380 x10^3/uL (140-400); RED BLOOD COUNT 4.28 x10^6/uL (3.50-5.40); RED CELL DISTRIBUTION WIDTH 15.8 % (11.5-14.5); WHITE BLOOD COUNT 11.4 x10^3/uL (4.0-11.0)
[2021-12-12] MEDS ORDERED: ENOXAPARIN ** NOTE DOSE ** SYRINGE SQ ONE (21:15)
[2021-12-12 23:59] VITALS: BP 132/75
== END 2021-12-13 00:03 | disposition short-term general hospital (02) ==
LOC: ER 19:03
DX: J96.21 Acute and chronic respiratory failure with hypoxia (principal); J44.9 Chronic obstructive pulmonary disease, unspecified; N19 Unspecified kidney failure; M19.90 Unspecified osteoarthritis, unspecified site; Z87.891 Personal history of nicotine dependence; Z20.822 Contact with and (suspected) exposure to COVID-19; Z91.041 Radiographic dye allergy status; Z88.1 Allergy status to other antibiotic agents
CPT/HCPCS: 36415; 71045; 80053; 82803; 83605; 84484; 85025; 87040; 87428; 93005; 94640; 94660; 96365; 96372; 96375; 96376; 99285; C9803; J0456; J0696; J1100; J1650; J3010; J7050; U0003